=== PATIENT | female | born 1935 | race Caucasian/White ===

== ENCOUNTER 2018-05-16 20:25 | Emergency (ER) | payer MEDICARE ==
--- NOTE | 2018-05-16 20:47 | ED ---
Lower Extremity - HPI Summary HPI Summary: This patient is a 83 year old F BIBA to [facility] accompanied by her friend with a chief complaint of left hip pain after a mechanical fall prior to arrival. Patient states she typically uses a walker at baseline, and while entering her apartment she used the wall as support instead and fell on her left hip. She states that afterward she was able to get up and enter her apartment, but her neighbor had called EMS. Patient denies recent fever, cold, cough, difficult breathing, changes in appetite and bowel or urinary habits. Patient reports gradually worsening leg weakness. Left hip pain is worsened with movement. PMHx of chronic lymphatic leukemia. - History of Current Complaint Stated Complaint: HIP PAIN Time Seen by Provider: 05/16/18 20:40 Hx Obtained From: Patient Mechanism Of Injury: Fall From A Standing Position Onset of Pain: Immediate, Prior to Arrival Onset/Duration: Still Present Timing: Constant Location: Is Discrete @ - left hip Aggravating Factor(s): Movement Able to Bear Weight: Yes - Allergies/Home Medications Allergies/Adverse Reactions: Allergies Allergy/AdvReac Type Severity Reaction Status Date / Time No Known Allergies Allergy Verified 03/30/18 10:29 Home Medications: Home Medications Omeprazole 20 mg PO DAILY 05/16/18 [History Confirmed 05/16/18] PMH/Surg Hx/FS Hx/Imm Hx Endocrine/Hematology History: Reports: Hx Thyroid Disease EENT History: Denies: Hx Deafness - Cancer History Cancer Type, Location and Year: leukemia Hx Chemotherapy: Yes - 3 YEARS AGO, LEUKEMIA Hx Radiation Therapy: Yes - 9 YEARS AGO, LEUKEMIA - Family History Known Family History: Negative: Respiratory Disease, Seizure Disorder - Social History Alcohol Use: None Substance Use Type: Reports: None Smoking Status (MU): Never Smoked Tobacco Review of Systems Negative: Fever Respiratory: Negative Gastrointestinal: Negative Positive: no symptoms reported Positive: Myalgia - left hip Neurological: Negative All Other Systems Reviewed And Are Negative: Yes Physical Exam - Summary Physical Exam Summary: Appearance: Well-appearing, Well-nourished, lying in bed comfortably Skin: Warm, dry, no obvious rash Eyes: sclera anicteric, no conjunctival pallor ENT: mucous membranes moist, pharynx appears normal Neck: Supple, nontender Respiratory: Clear to auscultation, no signs of respiratory distress Cardiovascular: Normal S1, S2. No murmurs. Normal distal pulses in tibial and radial bilaterally. Abdomen: Soft, nontender, normal active bowel sounds present Musculoskeletal: Normal, Strength/ROM Intact, no pain with rotation and flexion of the hip, no pain with longitudinal pressure at the foot Neurological: A&Ox3, awake and alert, mentation is normal, speech is fluent and appropriate Psychiatric: affect is normal, does not appear anxious or depressed Triage Information Reviewed: Yes Vital Signs Reviewed: Yes Diagnostics - Laboratory Result Diagrams: 05/16/18 20:48 05/16/18 20:48 Lab Statement: Any lab studies that have been ordered have been reviewed, and results considered in the medical decision making process. - Radiology L Hip XR Radiology Interpretation Completed By: ED Physician - Negative. - CT Pelvis CT CT Interpretation Completed By: Radiologist - Diffuse demineralization of the bones. Degenerative changes. Mildly depressed fracture of the right superior pubic ramus seen on the sagittal and coronal images cannot be seen on the axial source images. Findings may be secondary to reconstruction artifact. Bowing of the left inferior pubic ramus on the left. No obvious fracture or dislocation is seen. Degenerative changes of the lumbosacral spine. ED Physician has reviewed this report. - EKG 2052 Cardiac Rate: NL - 80 BPM EKG Rhythm: Sinus Rhythm Summary of EKG Findings: normal EKG Re-Evaluation - Re-Evaluation 0145 Re-Evaluation Time: 01:45 Comment: Patient is able to bear weight; however, patient is limitedin ability to ambulate. Patient wont be able to get into home due to darkness and weather. Will medicate for pain and will re-eval in the morning. Lower Extremity Course/Dx - Course Course Of Treatment: 83 year old F BIBA to [facility] accompanied by her friend with a chief complaint of left hip pain after a mechanical fall prior to arrival. Patient states she typically uses a walker at baseline, and while entering her apartment she used the wall as support instead and fell on her left hip. She states that afterward she was able to get up and enter her apartment. Bloodwork is consistent with reported leukemia. Patient is given Motrin, Flexeril, and Tylenol. Left hip XR is negative for fracture. Pelvis CT reveals degenerative changes, but no acute fracture. Patient is able to bear weight; however, patient is limited in ability to ambulate. Patient wont be able to get into home due to darkness and weather. after sleeping through the night patient is able to ambulate well and is discharged home. Discharge - Sign-Out/Discharge Documenting (check all that apply): Patient Departure - discharge - Discharge Plan Condition: Improved Disposition: HOME Patient Education Materials: Hip Contusion (ED) Referrals: Urban Capps MD [Primary Care Provider] - 3 Days (if not better) Additional Instructions: Take tylenol, 2 extra strenth tabs, 4 times daily for pain. You can supplement that with OTC motrin, 400 mg three times daily if needed. Ice over the painful areas can also help with the pain. - Attestation Statements Document Initiated by Scribe: Yes Documenting Scribe: Italia Spence Provider For Whom Scribe is Documenting (Include Credential): Aurelio Leyva MD Scribe Attestation: Italia Ravi , scribed for Aurelio Leyva MD on 05/17/18 at 0649.
[2018-05-16 21:19] LABS: EGFR Non-African American 102.9 (>60)
[2018-05-16 21:21] LABS: Hematocrit 26 % (35-47); Hemoglobin 8.9 g/dl (12.0-16.0); Mean Corpuscular HGB Conc 35 g/dl (31-36); Mean Corpuscular Hemoglobin 37 pg (27-31); Mean Corpuscular Volume 106 fL (80-97); Mean Platelet Volume 8.5 um3 (7.4-10.4); Platelet Count 104 10^3/ul (150-450); Red Cell Distribution Width 20 % (10.5-15); White Blood Count 2.1 10^3/ul (3.5-10.8)
--- OUTSIDE RECORDS SUMMARY | 2018-05-16 21:31 | XMS REPORT ---
:1935 External Reference #:[id number] Author Organization [facility] Address [address] [place] [address] Phone [phone] Care Team Providers Name Role Phone Urban Capps MD Primary Care Physician Unavailable Payers Type Date Identification Numbers Payment Provider Subscriber Medicare Primary Policy Number: [id number] Medicare Veda Marcial PayID: [id number] [address] [place] [address] [employer] [employer] [place] Effective: 1998 Policy Number: Medicare Veda Marcial [id number] Expires: 2018 PayID: [id number] [address] [facility] [address] [employer] [employer] Effective: Policy Number: [facility] Veda Gillyvrose 2007 [id number] Healthcare PayID: [id number] [address] [place] [address] Problems Date Description Provider Status Onset: 03/31/2018 Localized, primary osteoarthritis Geronimo Blank MD Active Onset: 03/31/2018 Closed fracture of phalanx of foot Geronimo Blank MD Active Onset: 03/31/2018 Closed fracture of metatarsal bone Geronimo Blank MD Active Social History Description No Information Available Allergies, Adverse Reactions, Alerts Date Description Reaction Status Severity Comments 03/31/2018 NKDA active Medications Medication Date Status Form Strength Qnty SIG Indications Ordering Provider Simvastatin 00/ Active Tablets 20mg 1 by mouth Unknown 0000 every day Raloxifene HCL 00/00/ Active Tablets 60mg 1 by mouth Unknown 0000 every day Levothyroxine 0000/ Active Tablets 112mcg 1 by mouth Unknown Sodium 0000 every day Calcitonin 00/ Active Solution 200Unit/Ac one spray Unknown ([place]) 0000 t daily in alternate nostrils Omeprazole / Active Capsules 20mg 1 by mouth Unknown [address] every day Imbruvica / Active Capsules 420mg 1 tab po Unknown 0000 daily Vital Signs Date Vital Result Comment 05/12/2018 Height 61 inches 5'1" Weight 129.00 lb Heart Rate 88 /min Respiratory Rate 18 /min BMI (Body Mass Index) 24.4 kg/m2 03/31/2018 Height 61 inches 5'1" Weight 129.00 lb Heart Rate 84 /min Respiratory Rate 16 /min Body Temperature 97.7 F Pain Level 8 BMI (Body Mass Index) 24.4 kg/m2 Results Description No Information Procedures Date CPT Code Description Status Comment 01/19/2013 71383 Rad Exam; Fingers Completed 01/19/2013 64106 Rad Exam; Wrist, Comp, Min 3 Views Completed RT 01/07/2013 56031 Xray Knee 3 Views Completed 01/07/2013 41135 Rad Exam; Knee, Ap&L Completed Encounters Type Date Location Provider CPT E/M Dx Office Visit 03/31/2018 [place] [address] S92.325A 10:00a Of C.M.AJanine S92.335A S92.345A S92.415A M17.12 W19.xxxA S92.355A Office Visit 01/19/2013 10:15a [facility] [place]issette Walker, [address] 715.94 Of CJanineMMartinez Canela 719.44 Office Visit 01/07/2013 10:30a [facility] Fidel Gill M.D. 33457 715.36 C.MJanineAJanine Office Visit 12/07/2012 10:30a [facility] [place] [address] 715.94 CTereso Walker M.D. Office Visit 06/11/2009 [facility] [address] 780.97 [facility] [place] [phone] Plan of Care Future Appointment(s):06/23/2018 10:15 am - Geronimo Blank MD at [facility].05/12/2018 - Geronimo Blank, MDS92.335A Nondisp fx of third metatarsal bone, left foot, initNew Xrays:Foot Left 3+ VWSFollow up:Follow Up: 6 xsnupE95.325A Nondisp fx of second metatarsal bone, left foot, initNew Xrays :Foot Left 3+ VWSS92.345A Nondisp fx of fourth metatarsal bone, left foot, init
[2018-05-16 21:45] LABS: ABS Basophils 0 10^3/ul (0-0.2); ABS Neutrophils 1.5 10^3/ul (1.5-7.7); ABS Neutrophils 1.8 10^3/ul (1.5-7.7); Monocytes % 6 % (0-7)
--- NOTE | 2018-05-17 00:46 | RAD ---
EXAM: CT Pelvis Without Intravenous Contrast, Skeletal EXAM DATE/TIME: 05/16/2018 11:55 PM CLINICAL HISTORY: 83 years old, female; Injury or trauma; Fall; Initial encounter; Abrasion; Left; Groin; Additional info: Fall, left hip pain, neg plain film, R/O hip FX TECHNIQUE: Axial computed tomography images of the pelvis without intravenous contrast. Exam focused on the skeletal structures. All CT scans at this facility use at least one of these dose optimization techniques: automated exposure control; mA and/or kV adjustment per patient size (includes targeted exams where dose is matched to clinical indication); or iterative reconstruction. Coronal and sagittal reformatted images were created and reviewed. COMPARISON: No relevant prior studies available. FINDINGS: Vasculature: Atherosclerosis. Bones/joints: Diffuse demineralization of the bones. Degenerative changes. Mildly depressed fracture of the right superior pubic ramus seen on the sagittal and coronal images cannot be seen on the axial source images. Findings may be secondary to reconstruction artifact. Bowing of the left inferior pubic ramus on the left. No obvious fracture or dislocation is seen. Degenerative changes of the lumbosacral spine. Soft tissues: Unremarkable. IMPRESSION: Diffuse demineralization of the bones. Degenerative changes. Mildly depressed fracture of the right superior pubic ramus seen on the sagittal and coronal images cannot be seen on the axial source images. Findings may be secondary to reconstruction artifact. Bowing of the left inferior pubic ramus on the left. No obvious fracture or dislocation is seen. Degenerative changes of the lumbosacral spine. To contact [facility] with a general question: [facility] - [phone] For direct physician to physician contact: Physician Hotline - [phone] [facility] ([facility] ID #[id number])
[2018-05-17] MEDS ORDERED: Acetaminophen TAB* 325 MG PO ONE (01:52)
[2018-05-17] MEDS ORDERED: Ibuprofen TAB* 400 MG PO ONE (01:52)
[2018-05-17] MEDS ORDERED: Cyclobenzaprine TAB* 10 MG ONE (02:56)
[2018-05-17] MEDS ORDERED: Cyclobenzaprine TAB* 10 MG PO ONE (02:57)
[2018-05-17 03:53] LABS: Urine Appearance Clear; Urine Blood Negative (Negative); Urine Color Yellow; Urine Ketones Trace (Negative); Urine Protein Negative (Negative); Urine Red Blood Cell Absent (Absent); Urine Specific Gravity 1.013 (1.010-1.030); Urine Urobilinogen Negative (Negative); Urine White Blood Cell Trace(0-5/hpf) (Absent)
[2018-05-17 07:13] VITALS: BP 120/74
--- NOTE | 2018-05-17 07:30 | RAD ---
INDICATION: Left hip injury. COMPARISON: There are no relevant prior studies available for comparison. TECHNIQUE: An AP view of the pelvis and frontal and lateral views of the left hip were obtained. FINDINGS: The bones appear osteopenic. The hips appear dysplastic. No fracture is seen. There is mild bilateral osteoarthritic change in the hips. IMPRESSION: LIMITED STUDY, NO EVIDENCE FOR FRACTURE, IF THE PATIENT'S SYMPTOMS PERSIST RECOMMEND FOLLOW-UP IMAGING. R0
== END 2018-05-17 07:00 | disposition home or self-care (01) ==
LOC: ED 20:25
DX: S70.02XA Contusion of left hip, initial encounter (principal); W19.XXXA Unspecified fall, initial encounter; Y93.9 Activity, unspecified; Y92.038 Other place in apartment as the place of occurrence of the external cause; R53.1 Weakness
CPT/HCPCS: 36415; 72192; 80053; 81003; 81015; 85025; 87086; 93005; 99283; A9270-GY

== ENCOUNTER 2018-05-21 15:55 | Inpatient (IN) | payer MEDICARE ==
[2018-05-21 16:59] LABS: Hematocrit 21 % (35-47); Hemoglobin 7.5 g/dl (12.0-16.0); Mean Corpuscular HGB Conc 36 g/dl (31-36); Mean Corpuscular Hemoglobin 38 pg (27-31); Mean Corpuscular Volume 106 fL (80-97); Mean Platelet Volume 7.7 um3 (7.4-10.4); Platelet Count 56 10^3/ul (150-450); Red Cell Distribution Width 20 % (10.5-15); White Blood Count 2.7 10^3/ul (3.5-10.8)
[2018-05-21 17:13] LABS: EGFR Non-African American 129.1 (>60)
[2018-05-21 17:39] LABS: ABS Basophils 0 10^3/ul (0-0.2); ABS Eosinophils 0.1 10^3/ul (0-0.6); ABS Lymphocytes 0.4 10^3/ul (1.0-4.8); ABS Monocytes 0.1 10^3/ul (0-0.8); ABS Neutrophils 2.2 10^3/ul (1.5-7.7); ABS Nucleated RBC 0 10^3/ul; Eosinophil % 1.9 % (0-6); Lymphocyte % 15.1 % (25-47); Nucleated Red Blood Cells % 0.4
--- NOTE | 2018-05-21 18:12 | ED ---
Complex/Multi-Sys Presentation - HPI Summary HPI Summary: This patient is a 83 year old F brought in by ambulance to ED with a chief complaint of weakness. The CC is described as worsened gradually over the past couple of years but especially since recent fall on 05/16/2018 where she injured her L leg. She needs her walker in order to move around. The patient rates the pain 0/10 in severity. Symptoms aggravated by nothing. Symptoms alleviated by nothing. Patient denies dizziness/light-headedness, CP, SOB, and melena. She is not taking any blood thinners but she is on chemo pills for chronic lymphocytic leukemia. - History Of Current Complaint Chief Complaint: EDWeakness Time Seen by Provider: 05/21/18 17:59 Onset/Duration: Gradual Onset, Lasting Weeks - worsened gradually over the past couple of years but especially since recent fall on 05/16/2018 where she injured her L leg, Still Present Timing: Constant Severity Currently: None Aggravating Factor(s): nothing Alleviating Factor(s): nothing Associated Signs And Symptoms: Positive: Weakness. Negative: Dizziness, SOB, Chest Pain, Melena - Allergies/Home Medications Allergies/Adverse Reactions: Allergies Allergy/AdvReac Type Severity Reaction Status Date / Time No Known Allergies Allergy Verified 03/30/18 10:29 PMH/Surg Hx/FS Hx/Imm Hx Endocrine/Hematology History: Reports: Hx Thyroid Disease Sensory History: Denies: Hx Deafness Neurological History: Reports: Other Neuro Impairments/Disorders - polio - Cancer History Cancer Type, Location and Year: leukemia Hx Chemotherapy: Yes - 3 YEARS AGO, LEUKEMIA Hx Radiation Therapy: Yes - 9 YEARS AGO, LEUKEMIA Infectious Disease History: Unable to Obtain/Confirm Infectious Disease History: Denies: Traveled Outside the [place] in Last 30 Days - Family History Known Family History: Negative: Respiratory Disease, Seizure Disorder - Social History Alcohol Use: None Substance Use Type: Reports: None Smoking Status (MU): Never Smoked Tobacco Review of Systems Negative: Fever, Chills Negative: Erythema Negative: Sore Throat Negative: Chest Pain Negative: Shortness Of Breath, Cough Positive: Other - denies melena. Negative: Abdominal Pain, Vomiting, Nausea Negative: dysuria, hematuria Negative: Myalgia, Edema Negative: Rash Neurological: Other - denies dizziness/light-headedness Positive: Weakness All Other Systems Reviewed And Are Negative: Yes Physical Exam - Summary Physical Exam Summary: Constitutional: Well-developed, Well-nourished, Alert. (-) Distressed Skin: Warm, Dry HENT: Normocephalic; Atraumatic Eyes: Conjunctiva normal Neck: Musculoskeletal ROM normal neck. (-) JVD, (-) Stridor, (-) Tracheal deviation Cardio: Rhythm regular, rate normal, Heart sounds normal; Intact distal pulses; The pedal pulses are 2+ and symmetric. Radial pulses are 2+ and symmetric. (-) Murmur Pulmonary/Chest wall: Effort normal. (-) Respiratory distress, (-) Wheezes, (-) Rales Abd: Soft, (-) epigastric tenderness, (-) Distension, (-) Guarding, (-) Rebound Musculoskeletal: (-) Edema Lymph: (-) Cervical adenopathy Neuro: Alert, Oriented x3 Psych: Mood and affect Normal Rectal exam chaperoned by nurse aide Lela: No teresa blood, empty vault. Triage Information Reviewed: Yes Vital Signs On Initial Exam: Initial Vitals Temp Pulse Resp BP Pulse Ox 97.8 F 70 16 121/54 98 05/21/18 16:26 05/21/18 16:26 05/21/18 16:26 05/21/18 16:26 05/21/18 16:26 Vital Signs Reviewed: Yes Diagnostics - Vital Signs Vital Signs Temp Pulse Resp BP Pulse Ox 05/21/18 16:26 97.8 F 70 16 121/54 98 - Laboratory Lab Results: Lab Results 05/21/18 05/21/18 05/21/18 Range/Units 16:48 16:48 16:48 WBC 2.7 L (3.5-10.8) 10^3/ul RBC 2.00 L (4.00-5.40) 10^6/ul Hgb 7.5 L (12.0-16.0) g/dl Hct 21 L (35-47) % MCV 106 H (80-97) fL MCH 38 H (27-31) pg MCHC 36 (31-36) g/dl RDW 20 H (10.5-15) % Plt Count 56 L (150-450) 10^3/ul MPV 7.7 (7.4-10.4) um3 Neut % (Auto) 80.1 (38-83) % Lymph % (Auto) 15.1 L (25-47) % Gillespie % (Auto) 2.2 (0-7) % Eos % (Auto) 1.9 (0-6) % Baso % (Auto) 0.7 (0-2) % Absolute Neuts (auto) 2.2 (1.5-7.7) 10^3/ul Absolute Lymphs (auto) 0.4 L (1.0-4.8) 10^3/ul Absolute Monos (auto) 0.1 (0-0.8) 10^3/ul Absolute Eos (auto) 0.1 (0-0.6) 10^3/ul Absolute Basos (auto) 0 (0-0.2) 10^3/ul Absolute Nucleated RBC 0 10^3/ul Nucleated RBC % 0.4 Sodium 127 L (135-145) mmol/L Potassium 4.3 (3.5-5.0) mmol/L Chloride 98 L (101-111) mmol/L Carbon Dioxide 21 L (22-32) mmol/L Anion Gap 8 (2-11) mmol/L BUN 15 (6-24) mg/dL Creatinine 0.46 L (0.51-0.95) mg/dL Est GFR ( Amer) 156.2 (>60) Est GFR (Non-Af Amer) 129.1 (>60) BUN/Creatinine Ratio 32.6 H (8-20) Glucose 90 (70-100) mg/dL Lactic Acid 0.7 (0.5-2.0) mmol/L Calcium 8.5 L (8.6-10.3) mg/dL Magnesium 1.9 (1.9-2.7) mg/dL Total Bilirubin 1.00 (0.2-1.0) mg/dL AST 24 (13-39) U/L ALT 18 (7-52) U/L Alkaline Phosphatase 23 L (34-104) U/L Troponin I 0.00 (<0.04) ng/mL Total Protein 5.4 L (6.4-8.9) g/dL Albumin 3.2 (3.2-5.2) g/dL Globulin 2.2 (2-4) g/dL Albumin/Globulin Ratio 1.5 (1-3) TSH 9.57 H (0.34-5.60) mcIU/mL Result Diagrams: 05/24/18 07:18 05/24/18 07:18 Lab Statement: Any lab studies that have been ordered have been reviewed, and results considered in the medical decision making process. - EKG 1811 Cardiac Rate: NL - 65 BPM EKG Rhythm: Sinus Rhythm Summary of EKG Findings: No STEMI Complex Multi-Symp Course/Dx Assessment/Plan: This patient is a 83 year old F brought in by ambulance to ED with a chief complaint of weakness. EKG done at 1811 reveals NSR at 65 BPM and no STEMI. Consulted Dr. Salter about the patient and he accepts for admission. Patient understands and agrees. - Diagnoses Provider Diagnoses: Symptomatic anemia - Physician Notifications Discussed Care Of Patient With: Montez Salter Time Discussed With Above Provider: 18:36 Instructed by Provider To: Admit As Inpatient Discharge - Sign-Out/Discharge Documenting (check all that apply): Patient Departure - admit - Discharge Plan Condition: Stable Disposition: ADMITTED TO [facility] - Billing Disposition and Condition Condition: STABLE Disposition: Admitted to [facility] - Attestation Statements Document Initiated by Scribe: Yes Documenting Scribe: Flakito Salmon Provider For Whom Scribe is Documenting (Include Credential): Jc France MD Scribe Attestation: Flakito Ravi, scribed for Jc France MD on 05/25/18 at 1132. Scribe Documentation Reviewed: Yes Provider Attestation: The documentation as recorded by the scribeFlakito accurately reflects the service I personally performed and the decisions made by me, Jc France MD
[2018-05-21] MEDS ORDERED: oxyCODONE/Acetamin 5/325 MG* TAB PO PRN (20:14)
[2018-05-21] MEDS ORDERED: Acetaminophen TAB* 325 MG PO PRN (20:14)
[2018-05-21] MEDS ORDERED: Enoxaparin(*) 30 MG/0.3 ML SYR SUBCUT SCH (21:00)
[2018-05-21] MEDS: NS 0.9% 1000 ML* 1,000 ML IV SCH (23:26)
[2018-05-21] MEDS: Senna TAB PO SCH (23:29)
[2018-05-22 02:56] LABS: Urine Appearance Clear; Urine Blood 1+ (Negative); Urine Color Yellow; Urine Ketones Negative (Negative); Urine Protein Negative (Negative); Urine Red Blood Cell Trace(0-2/hpf) (Absent); Urine Specific Gravity 1.008 (1.010-1.030); Urine Urobilinogen Negative (Negative); Urine White Blood Cell Trace(0-5/hpf) (Absent)
--- NOTE | 2018-05-22 05:05 | HP ---
HISTORY AND PHYSICAL: DATE OF ADMISSION: 05/21/18 CHIEF COMPLAINT: Feeling week. IDENTIFICATION: An 83-year-old female with 17q positive CLL currently on therapy with Imbruvica. HISTORY OF PRESENT ILLNESS: Ms. Marcial started Imbruvica in November. Therapy had been held for pancytopenia. At the end of April, she had a white count of 800 on 05/12/18 and 1.3 on 05/15/18. She came into the emergency room on after a fall and concerned about a broken hip. At that time her white count was 2.1 and Imbruvica was restarted. Platelet count was at the baseline around 100 and on 05/12/18 was 109 and 104 on 05/16/18. Her hemoglobin had a baseline of 11 to 12 until October of this year when it was 8.6, and has gone as low as 7.6 in the past, was 9 on 05/12/18. She started retaking the Imbruvica. After starting taking the Imbruvica on the she noticed increasing fatigue. She has been weaker and weaker to the point that she has had more difficulty walking around. This morning she was much much worse. She was in a chair and was not able to get up and decided to come to the emergency room. CBC on presentation included a hemoglobin of 7.5 as noted, down from 8.9 four days ago ; white count 2.7; platelets of 56,000. She has a sodium of 127, chloride 98, carbon-dioxide 21, and creatinine 0.46. She has no fevers or chills. She says she is eating well and has not had diarrhea. She is not in pain. She is alert and oriented x3 in the emergency room, but quite immobile. PAST MEDICAL HISTORY: 1. 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 She was treated with radiation at presentation. Remained disease free until 2008 when she received chemotherapy with 2 medicines from January through May. She tolerated that reasonably well and did not need therapy again until 2018. At that time she presented with progressive pancytopenia. Repeat bone marrow biopsy showed infiltration of CLL, 17q positive. She was started on Imbruvica. Generally tolerated Imbruvica well. 2. Hypothyroidism. 3. GERD. 4. Osteoporosis. 5. High cholesterol. 6. 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 PAST SURGICAL HISTORY: She had fibrocystic breast had biopsies years ago. MEDICATIONS: 1. Calcitonin nasal spray 200 units daily. 2. Imbruvica 420 mg daily. 3. Synthroid 112 mcg daily. 4. Omeprazole 20 mg daily. 5. Compazine 10 mg 4 times a day p.r.n. 6. Raloxifene 20 mg daily. 7. Simvastatin 20 mg daily. ALLERGIES: None. FAMILY HISTORY: Noncontributory. SOCIAL HISTORY: She lives alone in an apartment. She has a yazidi family and friends as well as neighbors that she is close to. She has no living family. Close to the step [place]. She reports she has a proxy, but cannot recall who it is. REVIEW OF SYSTEMS: General: Profound weakness, difficulty with any movement. No fevers, chills, or night sweats. HEENT: Dry mouth. No active dental disease. Lungs: Negative. Cardiac: Negative. GI: Negative. : She says she urinates fine. Musculoskeletal: She has a brace from the [employer] and she is very weak. She fell last week and may have hurt her hip, but evaluation is negative in the emergency room. She had a fall on 04/27/18 and a broken metatarsal. But she said she can walk without pain on that foot. Neurologic: Negative. Skin: Negative. PHYSICAL EXAMINATION VITAL SIGNS: Temperature 97.8, BP 121/54, pulse 70, respirations 16. HEENT: Mucosa dry, she has no active dental disease. No oral lesions. Conjunctivae pale. LUNGS: Clear to auscultation bilaterally. HEART: Regular, rate, and rhythm. S1 and S2. Slight systolic murmur, no gallops. ABDOMEN: Nontender. Nondistended. I cannot feel a spleen. Good bowel sounds. EXTREMITIES: She has the brace on the right leg. Trace edema bilaterally. Difficult to examine her in the chair. NEUROLOGIC: She is grossly nonfocal. Could turn in the wheelchair and has Strength 5/5 in the arms, but could not move the legs in the position she was in. LABORATORY DATA: As noted in the HPI. IMAGING: Pelvis CT from 05/16/18 did not show a fracture. ASSESSMENT AND PLAN: An 83-year-old female with chronic lymphocytic leukemia, 17q positive, on Imbruvica, who presents with progressive weakness, found to have a hemoglobin of 7.5 one week after restarting therapy. Suspect that she has pancytopenia secondary to her chemotherapy. Cytopenias could be driven primarily by progressive chronic lymphocytic leukemia during the time off therapy. Differential could also include blood loss; the normal BUN and creatinine are reassuring. She is hyponatremic which is suspect is from dehydration, there could be syndrome of inappropriate secretion of antidiuretic hormone. 1. We will admit her. Plan physical therapy evaluation of ADLs. Transfuse 2 units of packed red blood cells. 2. Hyponatremia. Normal saline at 100 cc/hour and follow. We will check UA including urine osmolality and check a chest x-ray for occult pulmonary disease. 3. Follow white count, follow platelets. No indication for platelet transfusion at this time. 4. We will continue her levothyroxine and simvastatin. We are going to hold her other medications until we get clarification. 5. We will give her Lovenox for DVT prophylaxis as long as her platelet count remains above 50,000. 6. She is a full code at this time, will need to clarify health care proxy will have office records in the morning. 7. Hold her Imbruvica. [id number]/CPS #: [id number] SALVATORE
[2018-05-22] MEDS: Levothyroxine TAB* 112 MCG TAB PO SCH (05:30)
[2018-05-22] MEDS: Omeprazole CAP* 20 MG PO SCH (05:30)
[2018-05-22 07:18] LABS: ABS Basophils 0 10^3/ul (0-0.2); ABS Eosinophils 0.1 10^3/ul (0-0.6); ABS Lymphocytes 0.3 10^3/ul (1.0-4.8); ABS Monocytes 0 10^3/ul (0-0.8); ABS Nucleated RBC 0 10^3/ul; Eosinophil % 2.2 % (0-6); Hematocrit 27 % (35-47); Hemoglobin 9.8 g/dl (12.0-16.0); Lymphocyte % 13.2 % (25-47); Mean Corpuscular HGB Conc 36 g/dl (31-36); Mean Corpuscular Hemoglobin 36 pg (27-31); Mean Corpuscular Volume 100 fL (80-97); Nucleated Red Blood Cells % 0; Platelet Count 47 10^3/ul (150-450); Red Blood Count 2.74 10^6/ul (4.00-5.40); Red Cell Distribution Width 20 % (10.5-15); White Blood Count 2.5 10^3/ul (3.5-10.8)
[2018-05-22 07:24] LABS: EGFR Non-African American 139.6 (>60)
--- NOTE | 2018-05-22 07:56 | RAD ---
Indication: Hyponatremia. 2 views of the chest are reviewed. Comparison is made with previous exam dated July 10, 2009. No mediastinal shift is noted. Heart is of normal size and configuration. No pleural fluid, pneumonia or pneumothorax is noted. Chronic pleural parenchymal changes are noted in the left lung base. IMPRESSION: Chronic pleural parenchymal changes in the left lung base without definite pneumonia.
--- NOTE | 2018-05-22 09:43 | PN ---
Progress Note - Progress Note Date of Service: 05/22/18 SOAP: Subjective: [Admitted last night with severe weakness to the point that she was unable to reposition herself in bed. She was pancytopenic at admission with Hgb 7.5. Transfused 2U PRBCs last night. She reports feeling slightly better, but still so weak that she is unable to lift her legs.] Objective: [ Laboratory Results - last 24 hr 05/21/18 05/21/18 05/21/18 16:48 16:48 16:48 WBC 2.7 L RBC 2.00 L Hgb 7.5 L Hct 21 L MCV 106 H MCH 38 H MCHC 36 RDW 20 H Plt Count 56 L MPV 7.7 Neut % (Auto) 80.1 Lymph % (Auto) 15.1 L Patrick % (Auto) 2.2 Eos % (Auto) 1.9 Baso % (Auto) 0.7 Absolute Neuts (auto) 2.2 Absolute Lymphs (auto) 0.4 L Absolute Monos (auto) 0.1 Absolute Eos (auto) 0.1 Absolute Basos (auto) 0 Absolute Nucleated RBC 0 Nucleated RBC % 0.4 Sodium 127 L Potassium 4.3 Chloride 98 L Carbon Dioxide 21 L Anion Gap 8 BUN 15 Creatinine 0.46 L Est GFR ( Amer) 156.2 Est GFR (Non-Af Amer) 129.1 BUN/Creatinine Ratio 32.6 H Glucose 90 Lactic Acid 0.7 Calcium 8.5 L Magnesium 1.9 Iron 67 TIBC 186 L % Saturation 36 Unsat Iron Binding < 171 Transferrin 133 L Ferritin 997.4 H Total Bilirubin 1.00 AST 24 ALT 18 Alkaline Phosphatase 23 L Troponin I 0.00 Total Protein 5.4 L Albumin 3.2 Globulin 2.2 Albumin/Globulin Ratio 1.5 TSH 9.57 H Urine Color Urine Appearance Urine pH Ur Specific Radiant Urine Protein Urine Ketones Urine Blood Urine Nitrate Urine Bilirubin Urine Urobilinogen Ur Leukocyte Esterase Urine WBC (Auto) Urine RBC (Auto) Ur Squamous Epith Cells Ur Transition Epith Cell Urine Bacteria Urine Glucose Blood Type Antibody Screen Crossmatch 05/21/18 05/22/18 05/22/18 16:48 02:44 06:47 WBC 2.5 L RBC 2.74 L Hgb 9.8 L Hct 27 L MCV 100 H MCH 36 H MCHC 36 RDW 20 H Plt Count 47 L D MPV 8.0 Neut % (Auto) 82.1 Lymph % (Auto) 13.2 L Patrick % (Auto) 1.6 Eos % (Auto) 2.2 Baso % (Auto) 0.9 Absolute Neuts (auto) 2.0 Absolute Lymphs (auto) 0.3 L Absolute Monos (auto) 0 Absolute Eos (auto) 0.1 Absolute Basos (auto) 0 Absolute Nucleated RBC 0 Nucleated RBC % 0 Sodium Potassium Chloride Carbon Dioxide Anion Gap BUN Creatinine Est GFR ( Amer) Est GFR (Non-Af Amer) BUN/Creatinine Ratio Glucose Lactic Acid Calcium Magnesium Iron TIBC % Saturation Unsat Iron Binding Transferrin Ferritin Total Bilirubin AST ALT Alkaline Phosphatase Troponin I Total Protein Albumin Globulin Albumin/Globulin Ratio TSH Urine Color Yellow Urine Appearance Clear Urine pH 6.0 Ur Specific Radiant 1.008 L Urine Protein Negative Urine Ketones Negative Urine Blood 1+ A Urine Nitrate Negative Urine Bilirubin Negative Urine Urobilinogen Negative Ur Leukocyte Esterase Trace A Urine WBC (Auto) Trace(0-5/hpf) Urine RBC (Auto) Trace(0-2/hpf) Ur Squamous Epith Cells Present A Ur Transition Epith Cell Present A Urine Bacteria Absent Urine Glucose Negative Blood Type B Positive Antibody Screen Negative Crossmatch See Detail 05/22/18 06:47 WBC RBC Hgb Hct MCV MCH MCHC RDW Plt Count MPV Neut % (Auto) Lymph % (Auto) Patrick % (Auto) Eos % (Auto) Baso % (Auto) Absolute Neuts (auto) Absolute Lymphs (auto) Absolute Monos (auto) Absolute Eos (auto) Absolute Basos (auto) Absolute Nucleated RBC Nucleated RBC % Sodium 129 L Potassium 4.2 Chloride 104 Carbon Dioxide 20 L Anion Gap 5 BUN 12 Creatinine 0.43 L Est GFR ( Amer) 168.9 Est GFR (Non-Af Amer) 139.6 BUN/Creatinine Ratio 27.9 H Glucose 88 Lactic Acid Calcium 8.0 L Magnesium Iron TIBC % Saturation Unsat Iron Binding Transferrin Ferritin Total Bilirubin 1.20 H AST 22 ALT 18 Alkaline Phosphatase 24 L Troponin I Total Protein 5.0 L Albumin 3.0 L Globulin 2.0 Albumin/Globulin Ratio 1.5 TSH Urine Color Urine Appearance Urine pH Ur Specific Radiant Urine Protein Urine Ketones Urine Blood Urine Nitrate Urine Bilirubin Urine Urobilinogen Ur Leukocyte Esterase Urine WBC (Auto) Urine RBC (Auto) Ur Squamous Epith Cells Ur Transition Epith Cell Urine Bacteria Urine Glucose Blood Type Antibody Screen Crossmatch Acetaminophen (Tylenol Tab*) 650 mg PO Q4H PRN PRN Reason: FEVER/PAIN Atorvastatin Calcium (Lipitor*) 10 mg PO DAILY [facility] Enoxaparin Sodium (Lovenox(*)) 30 mg SUBCUT Q24H [facility] Last Admin: 05/21/18 23:29 Dose: 30 mg Sodium Chloride (Ns 0.9% 1000 Ml*) 1,000 mls @ 100 mls/hr IV PER RATE [facility] Last Admin: 05/21/18 23:26 Dose: 100 mls/hr Levothyroxine Sodium (Synthroid Tab*) 112 mcg PO 0600 [facility] Last Admin: 05/22/18 05:30 Dose: 112 mcg Omeprazole (Prilosec Cap*) 20 mg PO 0600 [facility] Last Admin: 05/22/18 05:30 Dose: 20 mg Oxycodone/Acetaminophen (Percocet 5/325 Tab*) 1 tab PO Q4H PRN PRN Reason: Pain Senna (Senokot Tab*) 1 tab PO BID [facility] Last Admin: 05/21/18 23:29 Dose: 1 tab Vital Signs: Temp Pulse Resp BP Pulse Ox 97.4 F 66 16 121/61 96 05/22/18 07:26 05/22/18 07:26 05/22/18 07:26 05/22/18 07:26 05/22/18 07:26 Exam: Gen: very pleasant 79 yo female in NAD HEENT: dry MM CV: RRR, no m/r/g Resp: CTA, no w/c/r Abd: soft, nonTTP Ext: trace LE edema Neuro: flaccid paralysis RLE (chronic) and 2/5 strength LLE, UE ~4/5 strength bilaterally] Assessment: [Very pleasant 83 yo female with 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 Plan: [1. Weakness - likely multifactorial with some chronic component, but now so severe that she was unable to even reposition in bed - request evaluation by PT/OT 2. Pancytopenia - transfused 2U PRBCs, cont to monitor 3. CLL - hold Imbruvica due to cytopenias and worsening weakness 4. H/o polio with RLE weakness Dispo: request PT/OT eval, patient would benefit from DE[facility]Y and may require terminal gauger residential placement ]
[2018-05-22] MEDS: Atorvastatin* 10 MG TAB PO SCH (10:13)
[2018-05-22] MEDS: Senna TAB PO SCH ×2 (10:13→21:39)
[2018-05-22] MEDS: NS 0.9% 1000 ML* 1,000 ML IV SCH ×2 (11:30→21:39)
[2018-05-23] MEDS: Omeprazole CAP* 20 MG PO SCH (05:45)
[2018-05-23] MEDS: Levothyroxine TAB* 112 MCG TAB PO SCH (05:45)
--- NOTE | 2018-05-23 06:40 | PN ---
Progress Note - Progress Note Date of Service: 05/23/18 SOAP: Subjective: does not feel any improvement in weakness after transfusion. reports she has been gradually worsening over several months, however over the last couple of months has not been able to go grocery shopping or do basic self care at times. Objective: Vital Signs Temp Pulse Resp BP Pulse Ox 98.4 F 63 18 121/48 93 05/23/18 03:22 05/23/18 03:22 05/23/18 03:22 05/23/18 03:22 05/23/18 03:22 perr eomi op dry poor dentition CTA bl s1 s2 nl soft nt +bs Ext: trace LE edema, chronic stasis changes on left LE with erythema but no warmth Neuro: flaccid paralysis RLE (chronic) and 2/5 strength LLE, UE ~4/5 strength bilaterally Laboratory Results - last 24 hr 05/22/18 05/22/18 06:47 06:47 WBC 2.5 L RBC 2.74 L Hgb 9.8 L Hct 27 L MCV 100 H MCH 36 H MCHC 36 RDW 20 H Plt Count 47 L D MPV 8.0 Neut % (Auto) 82.1 Lymph % (Auto) 13.2 L Banks % (Auto) 1.6 Eos % (Auto) 2.2 Baso % (Auto) 0.9 Absolute Neuts (auto) 2.0 Absolute Lymphs (auto) 0.3 L Absolute Monos (auto) 0 Absolute Eos (auto) 0.1 Absolute Basos (auto) 0 Absolute Nucleated RBC 0 Nucleated RBC % 0 Sodium 129 L Potassium 4.2 Chloride 104 Carbon Dioxide 20 L Anion Gap 5 BUN 12 Creatinine 0.43 L Est GFR ( Amer) 168.9 Est GFR (Non-Af Amer) 139.6 BUN/Creatinine Ratio 27.9 H Glucose 88 Calcium 8.0 L Total Bilirubin 1.20 H AST 22 ALT 18 Alkaline Phosphatase 24 L Total Protein 5.0 L Albumin 3.0 L Globulin 2.0 Albumin/Globulin Ratio 1.5 Assessment: 83 yo female with 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 Plan: 1. Weakness - likely multifactorial with some chronic component, but now so severe that she was unable to even reposition in bed. Suspect exacerbation by ibrutinib for CLL - cont PT/OT - will need STR vs. potentially permanent placement 2. Pancytopenia, related to CLL - transfused 2U PRBCs, cont to monitor 3. CLL - hold Imbruvica due to cytopenias and worsening weakness 4. hyponatremia: acute on chronic. suspect hypovolemic hyponatremia right now. continue IVFs 5. hypothyroidism: increase synthroid, recheck in 6-8 weeks 6. low protein: suspect protein calorie malnutrition from poor access to nutrition. will check prealbumin today 7. no DVT prophylaxis with this degree of thrombocytopenia full code ]
[2018-05-23] MEDS: NS 0.9% 1000 ML* 1,000 ML IV SCH ×2 (07:58→20:56)
[2018-05-23] MEDS: Senna TAB PO SCH ×2 (07:58→19:58)
[2018-05-23] MEDS: Atorvastatin* 10 MG TAB PO SCH (07:58)
[2018-05-24] MEDS: Omeprazole CAP* 20 MG PO SCH (05:47)
[2018-05-24] MEDS: Levothyroxine TAB* 137 MCG TAB PO SCH (05:51)
[2018-05-24] MEDS: NS 0.9% 1000 ML* 1,000 ML IV SCH (05:52)
[2018-05-24 07:49] LABS: ABS Basophils 0 10^3/ul (0-0.2); ABS Eosinophils 0.1 10^3/ul (0-0.6); ABS Lymphocytes 0.5 10^3/ul (1.0-4.8); ABS Monocytes 0 10^3/ul (0-0.8); ABS Neutrophils 2.5 10^3/ul (1.5-7.7); ABS Nucleated RBC 0 10^3/ul; Hematocrit 28 % (35-47); Hemoglobin 9.6 g/dl (12.0-16.0); Lymphocyte % 15.1 % (25-47); Mean Corpuscular HGB Conc 35 g/dl (31-36); Mean Corpuscular Hemoglobin 36 pg (27-31); Mean Corpuscular Volume 102 fL (80-97); Mean Platelet Volume 7.8 fL (7.4-10.4); Nucleated Red Blood Cells % 0.1; Platelet Count 42 10^3/ul (150-450); Red Blood Count 2.71 10^6/ul (4.00-5.40); Red Cell Distribution Width 21 % (10.5-15)
[2018-05-24] MEDS: Senna TAB PO SCH ×2 (09:45→21:09)
[2018-05-24] MEDS: Atorvastatin* 10 MG TAB PO SCH (09:45)
[2018-05-24 11:46] LABS: Uric Acid 3.1 mg/dL (2.3-6.6)
--- NOTE | 2018-05-24 13:33 | PN ---
Subjective Date of Service: 05/24/18 Interval History: Pt in good spirits Na 127 from 129 Hgb stable 9.6 from 9.8 Hoping to go to [facility]. Denies chest pain, abdominal pain, shortness of breath, F/C/N/V, cough. Frequently urinating. No dysuria. Objective Active Medications: Acetaminophen (Tylenol Tab*) 650 mg PO Q4H PRN PRN Reason: FEVER/PAIN Last Admin: 05/22/18 21:39 Dose: 325 mg Atorvastatin Calcium (Lipitor*) 10 mg PO DAILY [facility] Last Admin: 05/24/18 09:45 Dose: 10 mg Levothyroxine Sodium (Synthroid Tab*) 137 mcg PO DAILY@0600 [facility] Last Admin: 05/24/18 05:51 Dose: 137 mcg Omeprazole (Prilosec Cap*) 20 mg PO 0600 [facility] Last Admin: 05/24/18 05:47 Dose: 20 mg Oxycodone/Acetaminophen (Percocet 5/325 Tab*) 1 tab PO Q4H PRN PRN Reason: Pain Senna (Senokot Tab*) 1 tab PO BID [facility] Last Admin: 05/24/18 09:45 Dose: 1 tab Vital Signs - 8 hr 05/24/18 05/24/18 05/24/18 08:00 08:07 12:08 Temperature 97.9 F 97.6 F Pulse Rate 67 66 Respiratory 18 18 16 Rate Blood Pressure 131/64 126/61 (mmHg) O2 Sat by Pulse 93 96 Oximetry Oxygen Devices in Use Now: None Appearance: NAD Eyes: No Scleral Icterus, PERRLA Ears/Nose/Mouth/Throat: NL Teeth, Lips, Gums, Mucous Membranes Moist Neck: NL Appearance and Movements; NL JVP, Trachea Midline Respiratory: Symmetrical Chest Expansion and Respiratory Effort, Clear to Auscultation Cardiovascular: NL Sounds; No Murmurs; No JVD, RRR Abdominal: NL Sounds; No Tenderness; No Distention, No Hepatosplenomegaly Extremities: - - 2+ edema, b/l LE Skin: - - faint erythema to left calf (but less than yesterday per report), slight warmth. Neurological: Alert and Oriented x 3, - - 3/5 LLE, flacid RLE. boiler tester 4+L/5-R. bicep pain limited on R but at least 4, L 4+. Nutrition: Taking PO's Result Diagrams: 05/24/18 07:18 05/24/18 07:18 Additional Lab and Data: Laboratory Results - last 24 hr 05/24/18 05/24/18 05/24/18 07:18 07:18 07:18 WBC 3.0 L RBC 2.71 L Hgb 9.6 L Hct 28 L MCV 102 H MCH 36 H MCHC 35 RDW 21 H Plt Count 42 L MPV 7.8 Neut % (Auto) 81.2 Lymph % (Auto) 15.1 L [place] % (Auto) 1.3 Eos % (Auto) 2.0 Baso % (Auto) 0.4 Absolute Neuts (auto) 2.5 Absolute Lymphs (auto) 0.5 L Absolute Monos (auto) 0 Absolute Eos (auto) 0.1 Absolute Basos (auto) 0 Absolute Nucleated RBC 0 Nucleated RBC % 0.1 Sodium 127 L Potassium 3.7 Chloride 103 Carbon Dioxide 20 L Anion Gap 4 BUN 10 Creatinine 0.37 L Est GFR ( Amer) 200.8 Est GFR (Non-Af Amer) 166.0 BUN/Creatinine Ratio 27.0 H Glucose 90 Uric Acid 3.1 Calcium 7.7 L B-Natriuretic Peptide 101 H Urine Osmolality Ur Random Creatinine Ur Random Sodium 05/24/18 05/24/18 12:00 12:00 WBC RBC Hgb Hct MCV MCH MCHC RDW Plt Count MPV Neut % (Auto) Lymph % (Auto) [place] % (Auto) Eos % (Auto) Baso % (Auto) Absolute Neuts (auto) Absolute Lymphs (auto) Absolute Monos (auto) Absolute Eos (auto) Absolute Basos (auto) Absolute Nucleated RBC Nucleated RBC % Sodium Potassium Chloride Carbon Dioxide Anion Gap BUN Creatinine Est GFR ( Amer) Est GFR (Non-Af Amer) BUN/Creatinine Ratio Glucose Uric Acid Calcium B-Natriuretic Peptide Urine Osmolality 426 Ur Random Creatinine 34.91 Ur Random Sodium 120 Microbiology and Other Data: Microbiology 05/22/18 02:44 Urine Urine Culture - Final 05/21/18 18:10 Stool Stool Occult Blood (LION) - Final Assess/Plan/Problems-Billing Assessment: 83 yo female H CLL(2002, recurred 2008) on ibrutinib though off 2/2 pancytopenia, hypothyroidism, HLD, osteopenia, childhood polio with residual flaccid paralysis RLE p/w weakness and symptomatic anemia Hgb 7.5 likely from ibrutinib. PLT 40s. s/p 2u pRBC. Likely needing rehab placement as lives alone and no family in area. - Patient Problems (1) Pancytopenia due to antineoplastic chemotherapy Current Visit: Yes Status: Acute Code(s): D61.810 - ANTINEOPLASTIC CHEMOTHERAPY INDUCED PANCYTOPENIA; T45.1X5A - ADVERSE EFFECT OF ANTINEOPLASTIC AND IMMUNOSUP DRUGS, INIT SNOMED Code(s): 473306413412577 Comment: s/p 2u pRBC. ANC 2500. PLT 42 (no DVT ppx). Hgb stable 9.6 Holding ibrutinib (for CLL) (2) Weakness Current Visit: Yes Status: Acute Code(s): R53.1 - WEAKNESS SNOMED Code(s) : 97967096 Comment: Likely combination of medication side effect, chronic polio weakness , symptamatic anema, hyponatremia. Potential post polio syndrome as well. 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 Lives alone, no family around. (3) Hyponatremia Current Visit: Yes Status: Acute Code(s): E87.1 - HYPO-OSMOLALITY AND HYPONATREMIA SNOMED Code(s): 34839572 Comment: Has gotten 100cc/hr NS for 2 days for presumed hypovolemic hyponatremia without improvement. Attests to between 2-3 quarts of water at home each day. Peripheral edema present, pt somewhat poor historian in this regard but perhaps slightly worse. Noticed slightly increased WOB with talking. NS stopped. BNP checked: 101. Uric acid wnl. Ulytes checked: Abdirahman 120, Uoscm 426 , FeNa 1.0%. Hypothyroidism present and may be contributing. (4) Hypothyroidism Current Visit: Yes Status: Acute Code(s): E03.9 - HYPOTHYROIDISM, UNSPECIFIED SNOMED Code(s): 48894131 Comment: continue levothyroxine 137 mcg daily. (5) HLD (hyperlipidemia) Current Visit: Yes Status: Acute Code(s): E78.5 - HYPERLIPIDEMIA, UNSPECIFIED SNOMED Code(s): 43079073 Comment: continue statin. (6) History of poliomyelitis Current Visit: Yes Status: Acute Code(s): Z86.12 - PERSONAL HISTORY OF POLIOMYELITIS SNOMED Code(s): 312554718 (7) Hx of chronic lymphocytic leukemia Current Visit: Yes Status: Acute Code(s): Z85.6 - PERSONAL HISTORY OF LEUKEMIA SNOMED Code(s): 31260800386953 Comment: Holding ibrutinib Status and Disposition: heme one inpatient. medicine covering today. Likely to SNF in next 24-48 hours.
[2018-05-25] MEDS: Levothyroxine TAB* 137 MCG TAB PO SCH (06:59)
[2018-05-25] MEDS: Omeprazole CAP* 20 MG PO SCH (06:59)
[2018-05-25] MEDS: Atorvastatin* 10 MG TAB PO SCH (08:59)
[2018-05-25] MEDS: Senna TAB PO SCH ×2 (08:59→20:10)
--- NOTE | 2018-05-25 09:33 | PN ---
Progress Note - Progress Note Date of Service: 05/25/18 SOAP: Subjective: [Continued weakness. No new complaints. Working with PT.] Objective: [ Laboratory Results - last 24 hr 05/24/18 05/24/18 05/24/18 07:18 07:18 12:00 Sodium 127 L Potassium 3.7 Chloride 103 Carbon Dioxide 20 L Anion Gap 4 BUN 10 Creatinine 0.37 L Est GFR ( Amer) 200.8 Est GFR (Non-Af Amer) 166.0 BUN/Creatinine Ratio 27.0 H Glucose 90 Uric Acid 3.1 Calcium 7.7 L B-Natriuretic Peptide 101 H Urine Osmolality 426 Ur Random Creatinine Ur Random Sodium 05/24/18 12:00 Sodium Potassium Chloride Carbon Dioxide Anion Gap BUN Creatinine Est GFR ( Amer) Est GFR (Non-Af Amer) BUN/Creatinine Ratio Glucose Uric Acid Calcium B-Natriuretic Peptide Urine Osmolality Ur Random Creatinine 34.91 Ur Random Sodium 120 Acetaminophen (Tylenol Tab*) 650 mg PO Q4H PRN PRN Reason: FEVER/PAIN Last Admin: 05/22/18 21:39 Dose: 325 mg Atorvastatin Calcium (Lipitor*) 10 mg PO DAILY [facility] Last Admin: 05/25/18 08:59 Dose: 10 mg Levothyroxine Sodium (Synthroid Tab*) 137 mcg PO DAILY@0600 [facility] Last Admin: 05/25/18 06:59 Dose: 137 mcg Omeprazole (Prilosec Cap*) 20 mg PO 0600 [facility] Last Admin: 05/25/18 06:59 Dose: 20 mg Oxycodone/Acetaminophen (Percocet 5/325 Tab*) 1 tab PO Q4H PRN PRN Reason: Pain Senna (Senokot Tab*) 1 tab PO BID [facility] Last Admin: 05/25/18 08:59 Dose: 1 tab Vital Signs: Temp Pulse Resp BP Pulse Ox 97.8 F 78 22 109/49 95 05/25/18 07:59 05/25/18 07:59 05/25/18 08:00 05/25/18 07:59 05/25/18 07:59 Exam: Gen: Very pleasant 83 yo female in NAD HEENT: MMM, no thrush CV: RRR, 3/6 SUMMER Resp: few crackles at lung bases Ext: trace LE edema Neuro: flaccid paralysis RLE, 2/5 strength LLE, UE 4/5 symmetrically] [Assessment: 83 yo female with 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 Plan: 1. Weakness - likely multifactorial with some chronic component, but now so severe that she was unable to even reposition in bed. Suspect exacerbation by ibrutinib for CLL - cont PT/OT - will need STR vs. potentially permanent placement 2. Pancytopenia, related to CLL - transfused 2U PRBCs, cont to monitor - stable since 3. CLL - hold Imbruvica indefinitely due to cytopenias and worsening weakness 4. hyponatremia: - acute on chronic - now euvolemic - cont to improve 5. hypothyroidism: - TSH 9.5, certainly contributing to her weakness - increase synthroid, recheck in 6-8 weeks 6. low protein: - suspect protein calorie malnutrition from poor access to nutrition - prealbumin 12 7. no DVT prophylaxis with this degree of thrombocytopenia full code Dispo: pending [facility] with likely transition to termite helper care]
[2018-05-26] MEDS: Omeprazole CAP* 20 MG PO SCH (05:49)
[2018-05-26] MEDS: Levothyroxine TAB* 137 MCG TAB PO SCH (05:49)
[2018-05-26] MEDS: Senna TAB PO SCH (09:13)
[2018-05-26] MEDS: Atorvastatin* 10 MG TAB PO SCH (09:13)
[2018-05-26 10:01] VITALS: BP 112/55
--- NOTE | 2018-05-26 10:51 | DS ---
AMENDED REPORT NOW INCLUDES DESIGNATED COSIGNER CC: Dr. Espinal; Dr. Capps.* DISCHARGE SUMMARY: DATE OF ADMISSION: 05/21/18 DATE OF DISCHARGE: 05/26/18 PRIMARY CARE PROVIDER: Urban Capps MD PRIMARY ONCOLOGIST: Kofi Espinal MD ATTENDING PHYSICIAN: Montez Salter MD * (DICTATED BY ALKA CHASE) DISCHARGING PROVIDER: ALKA Chase PRIMARY DISCHARGE DIAGNOSES: 1. Profound weakness. 2. Pancytopenia secondary to chronic lymphocytic leukemia and Imbruvica, status post transfusion of 2 units of packed red blood cells. 3. Hyponatremia. 4. Hypothyroidism, TSH of 9.5. 5. Protein-calorie malnutrition, moderate. DISCHARGE MEDICATIONS: 1. Calcitonin nasal spray 200 units inhale daily. 2. Omeprazole 20 mg p.o. daily. 3. Raloxifene 60 mg p.o. daily. 4. Simvastatin 20 mg p.o. daily. 5. Levothyroxine 137 mcg p.o. daily. 6. Percocet 5/325 one tablet p.o. q.4 hours as needed for pain. 7. Senna 1 tablet p.o. twice daily. MEDICATION CHANGES: 1. Increased levothyroxine from 112 to 137 mcg. 2. Start p.r.n. Percocet. 3. Start Senna. HOSPITAL IMAGING: Chest x-ray 05/21/18 shows chronic pleural parenchymal changes in the left lung base without definitive pneumonia. HOSPITAL COURSE: This is a very pleasant 83-year-old female with history of polio and chronic right lower extremity weakness as well as CLL for which she has recently been treated with Imbruvica, who had become progressively weak at home and presented to the emergency department by ambulance when her weakness progressed to the point that she was unable to reposition herself in bed. She was found to be pancytopenic with a neutrophil counts of 2200 and a total white blood cell count of 2700, hemoglobin of 7.5 and platelet count of 56,000. Chemistry panel showed mild hyponatremia, otherwise unremarkable. Also, of note , TSH was elevated to 9.5. Urine analysis was positive for trace leuke esterase and 1+ blood with no growth on subsequent culture. The patient was subsequently transfused 2 units of packed red blood cells and her Imbruvica was held during this hospitalization. She began to work with physical therapy with slight improvement in her mobility, but still was unable to stand or otherwise ambulate independently. Recommendation was for transfer to subacute rehab with likely transition to a need for long-term [facility]cfp. DISPOSITION AND FOLLOWUP PLAN: The patient is being discharged to [facility] [place]. Recommend followup with Dr. Espinal in 2 weeks and appointment has been made on her behalf for 06/09/18 at 10:50 a.m. CBC will be checked at that time. Plan at this time is to hold her Imbruvica indefinitely and further treatment of her CLL will depend on her clinical course moving forward. Of note , her levothyroxine dose was increased as noted above and she requires a repeat TSH in 6 to 8 weeks. ALKA CHASE [id number]/[facility] #: [id number] [place]
== END 2018-05-26 12:05 | DRG 809 ==
LOC: ED 15:55 → MED 20:14 → OBSVTOIN 23:59
PROVIDERS: ADMIT Internal Medicine Hematology & Oncology; ATTEND Internal Medicine Hematology & Oncology
PROC: 30233N1 Transfusion of Nonautologous Red Blood Cells into Peripheral Vein, Percutaneous Approach (ICD-10-PCS; principal; 2018-05-21)
DX: D61.810 Antineoplastic chemotherapy induced pancytopenia (principal); C91.10 Chronic lymphocytic leukemia of B-cell type not having achieved remission; E87.1 Hypo-osmolality and hyponatremia; E44.0 Moderate protein-calorie malnutrition; G83.11 Monoplegia of lower limb affecting right dominant side; E03.9 Hypothyroidism, unspecified; R53.1 Weakness; M81.0 Age-related osteoporosis without current pathological fracture; E78.5 Hyperlipidemia, unspecified; Z86.12 Personal history of poliomyelitis; Z79.899 Other long term (current) drug therapy; Z68.26 Body mass index [BMI] 26.0-26.9, adult
CPT/HCPCS: 36415; 71046; 80048; 80053; 81003; 81015; 82272; 82570; 82728; 83540; 83550; 83605; 83735; 83880; 83935; 84134; 84300; 84443; 84484; 84550; 85025; 86850; 86900; 86901; 86922; 87086; 93005; 99223; 99232; 99283; A9270-GY; G8978-GP-CM; G8979-GP-CI; G8987-GO-CM; G8988-GO-CI; J1650; P9040

== ENCOUNTER 2018-08-11 12:23 | Observation (INO) | payer MEDICARE ==
--- NOTE | 2018-08-11 12:39 | ED ---
Complex/Multi-Sys Presentation - HPI Summary HPI Summary: This pt is an 83 y/o female presenting to [facility] via EMS from [facility] for a blood transfusion. She has hx of chronic lymphocytic leukemia. Pt had blood drawn this morning and showed hemoglobin of 5.7. She was called to come to the ED for a blood transfusion. She reports cough and runny nose that began yesterday. Medical records note pt has been SOB on exertion with occasional cough. Denies fever, chills, sweats, chest pain, weakness, black stools. Her last transfusion was in May 2018. Denies hx of GI bleed. Denies tobacco use. Denies hx of asthma or COPD. 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 - History Of Current Complaint Hx Obtained From: Patient, Medical Records Onset/Duration: Lasting Days, Still Present Timing: Days Severity Currently: Moderate Location: Negative Aggravating Factor(s): nothing Alleviating Factor(s): nothing Associated Signs And Symptoms: Positive: SOB, Cough. Negative: Weakness, Chest Pain, Fever - Allergies/Home Medications Allergies/Adverse Reactions: Allergies Allergy/AdvReac Type Severity Reaction Status Date / Time No Known Allergies Allergy Verified 07/09/18 11:49 Home Medications: Home Medications Calcitonin NASAL(NF) [Fortical(NR)] 1 mg ALT NARE DAILY 08/11/18 [History Confirmed 08/11/18] Levothyroxine TAB* [Synthroid TAB*] 137 mcg PO DAILY 08/11/18 [History Confirmed 08/11/18] Omeprazole CAP (NF) [Prilosec CAP* 20 MG] 20 mg PO DAILY 08/11/18 [History Confirmed 08/11/18] Raloxifene (NF) [Evista(NF)] 60 mg PO DAILY 08/11/18 [History Confirmed 08/11/18 ] Simvastatin TAB(NF) [Zocor(NF)] 20 mg PO DAILY 08/11/18 [History Confirmed 08/11] PMH/Surg Hx/FS Hx/Imm Hx Endocrine/Hematology History: Reports: Hx Thyroid Disease Respiratory History: Denies: Hx Asthma, Hx Chronic Obstructive Pulmonary Disease (COPD) GI History: Reports: Hx Gastroesophageal Reflux Disease, Other GI Disorders - Esophageal "Outpouching" Musculoskeletal History: Reports: Other Musculoskeletal History - Polio Sensory History: Reports: Hx Contacts or Glasses, Hx Macular Degeneration Denies: Hx Deafness, Hx Hearing Aid Opthamlomology History: Reports: Hx Contacts or Glasses, Hx Macular Degeneration Neurological History: Reports: Other Neuro Impairments/Disorders - polio - Cancer History Cancer Type, Location and Year: Chronic lymphocytic leukemia Hx Chemotherapy: Yes - 3 YEARS AGO, LEUKEMIA Hx Radiation Therapy: Yes - 9 YEARS AGO, LEUKEMIA - Family History Known Family History: Negative: Respiratory Disease, Seizure Disorder - Social History Alcohol Use: None Substance Use Type: Reports: None Smoking Status (MU): Never Smoked Tobacco Have You Smoked in the Last Year: No Review of Systems Negative: Fever, Chills Negative: Erythema Positive: Nasal Discharge - runny nose. Negative: Sore Throat Negative: Chest Pain Positive: Shortness Of Breath, Cough Negative: Abdominal Pain, Vomiting, Nausea Negative: dysuria, hematuria Negative: Myalgia, Edema Negative: Rash Neurological: Other - NEG: dizziness Negative: Weakness All Other Systems Reviewed And Are Negative: Yes Physical Exam - Summary Physical Exam Summary: Constitutional: Well-developed, Well-nourished, Alert. (-) Distressed Skin: Warm, Dry HENT: Normocephalic; Atraumatic Eyes: Conjunctiva normal Neck: Musculoskeletal ROM normal neck. (-) JVD, (-) Stridor, (-) Tracheal deviation Cardio: Rhythm regular, rate normal, Heart sounds normal; Intact distal pulses; The pedal pulses are 2+ and symmetric. Radial pulses are 2+ and symmetric. (-) Murmur Pulmonary/Chest wall: Effort normal. (-) Respiratory distress, (-) Wheezes, (-) Rales Abd: Soft, (-) Tenderness, (-) Distension, (-) Guarding, (-) Rebound Musculoskeletal: (-) Edema. Right leg is in a brace. She is slightly weaker on the left. Lymph: (-) Cervical adenopathy Neuro: Alert, Oriented x3 Psych: Mood and affect Normal Triage Information Reviewed: Yes Vital Signs Reviewed: Yes Diagnostics - Laboratory Result Diagrams: 08/11/18 12:57 08/11/18 12:57 Lab Statement: Any lab studies that have been ordered have been reviewed, and results considered in the medical decision making process. - Radiology Chest XR Radiology Interpretation Completed By: Radiologist Summary of Radiographic Findings: IMPRESSION: Right basilar atelectasis versus consolidation. Recommend follow-up until resolution to exclude underlying pulmonary parenchymal pathology. Dr. France has reviewed this report. - EKG 12:47 Cardiac Rate: NL - at 79 bpm EKG Rhythm: Sinus Rhythm Summary of EKG Findings: No STEMI. Complex Multi-Symp Course/Dx Assessment/Plan: Pt is an 83 y/o female, with hx of chronic lymphocytic leukemia , who presents to the ED via EMS from [facility] for a blood transfusion. Pt had blood drawn this morning and showed hemoglobin of 5.7. She reports cough and runny nose that began yesterday. Medical records note pt has been SOB on exertion with occasional cough. Her last transfusion was in May 2018. Blood work shows WBC of 2.1, hemoglobin of 6.2, hematocrit of 18, platelet count of 33. Chest XR shows right basilar atelectasis versus consolidation. Recommend follow-up until resolution to exclude underlying pulmonary parenchymal pathology. I discussed the case with Dr. Espinal, oncologist, who accepted the pt for admission. - Diagnoses Provider Diagnoses: Symptomatic anemia, Chronic lymphocytic leukemia - Physician Notifications Discussed Care Of Patient With: Kofi Espinal - oncologist Time Discussed With Above Provider: 13:03 Instructed by Provider To: Admit As Inpatient Discharge - Sign-Out/Discharge Documenting (check all that apply): Patient Departure - Admit to [facility] All imaging exams completed and their final reports reviewed: Yes - Discharge Plan Condition: Stable Disposition: ADMITTED TO [facility] - Attestation Statements Document Initiated by Scribe: Yes Documenting Scribe: Zee Avila Provider For Whom Scribe is Documenting (Include Credential): Jc France MD Scribe Attestation: IZee, scribed for Jc France MD on 08/11/18 at 1611. Status of Scribe Document: Ready
[2018-08-11 13:23] LABS: Hematocrit 18 % (35-47); Hemoglobin 6.2 g/dl (12.0-16.0); Mean Corpuscular HGB Conc 35 g/dl (31-36); Mean Corpuscular Hemoglobin 34 pg (27-31); Mean Corpuscular Volume 98 fL (80-97); Mean Platelet Volume 9.7 fL (7.4-10.4); Platelet Count 33 10^3/ul (150-450); Red Blood Count 1.82 10^6/ul (4.00-5.40); Red Cell Distribution Width 26 % (10.5-15); White Blood Count 2.1 10^3/ul (3.5-10.8)
[2018-08-11 13:30] LABS: Activated Partial Thrombo Time 27.4 seconds (26.0-36.3); Anion Gap 8 mmol/L (2-11); BUN/Creatinine Ratio 35.7 (8-20); Blood Urea Nitrogen 20 mg/dL (6-24); CO2 Carbon Dioxide 20 mmol/L (22-32); Calcium 8.6 mg/dL (8.6-10.3); Chloride 102 mmol/L (101-111); EGFR African American 124.5 (>60); EGFR Non-African American 102.9 (>60); Glucose 109 mg/dL (70-100); INR 1.04 (0.77-1.02); Potassium 4.6 mmol/L (3.5-5.0); Sodium 130 mmol/L (135-145)
[2018-08-11] MEDS ORDERED: Albuterol 2.5 MG/3 ML NEB.SOL* (0.083%) INH PRN (14:18)
[2018-08-11] MEDS ORDERED: Acetaminophen TAB* 325 MG PO PRN (14:18)
[2018-08-11] MEDS ORDERED: Azithromycin TAB* 250 MG PO ONE (14:18)
[2018-08-11 15:36] LABS: % Iron Saturation 36 % (15-55); Iron 75 ug/dL (50-212); Total Iron Binding Capacity 207 mcg/dL (250-450); Transferrin 148 mg/dL (203-362)
[2018-08-11 15:54] LABS: Ferritin 1141.8 ng/mL (11-307)
[2018-08-11 16:14] LABS: Influenza A Molecular NEGATIVE (Negative); Influenza B Molecular NEGATIVE (Negative)
[2018-08-11 16:48] LABS: C Reactive Protein 53.74 mg/L (<8.01)
[2018-08-12] MEDS ORDERED: Levothyroxine TAB* 137 MCG TAB PO SCH (06:00)
[2018-08-12 06:05] LABS: BUN/Creatinine Ratio 36.7 (8-20); Calcium 8.2 mg/dL (8.6-10.3); EGFR African American 145.2 (>60); Potassium 4.2 mmol/L (3.5-5.0)
[2018-08-12 06:11] LABS: ABS Basophils 0 10^3/ul (0-0.2); ABS Eosinophils 0.1 10^3/ul (0-0.6); ABS Lymphocytes 0.3 10^3/ul (1.0-4.8); ABS Monocytes 0 10^3/ul (0-0.8); ABS Neutrophils 1.3 10^3/ul (1.5-7.7); ABS Nucleated RBC 0 10^3/ul; Eosinophil % 3.3 %; Hematocrit 25 % (35-47); Hemoglobin 8.6 g/dl (12.0-16.0); Lymphocyte % 18.3 %; Mean Corpuscular HGB Conc 35 g/dl (31-36); Mean Corpuscular Hemoglobin 33 pg (27-31); Mean Corpuscular Volume 92 fL (80-97); Mean Platelet Volume 8.8 fL (7.4-10.4); Nucleated Red Blood Cells % 0.7; Platelet Count 26 10^3/ul (150-450); Red Blood Count 2.65 10^6/ul (4.00-5.40); Red Cell Distribution Width 20 % (10.5-15); White Blood Count 1.7 10^3/ul (3.5-10.8)
[2018-08-12 08:01] VITALS: BP 107/52
[2018-08-12] MEDS ORDERED: Azithromycin TAB* 250 MG PO SCH (09:00)
[2018-08-12] MEDS ORDERED: Pantoprazole TAB * 40 MG TAB PO SCH (09:00)
[2018-08-12] MEDS ORDERED: Albuterol HFA INHALER* 8 gm MDI INH PRN (10:03)
--- NOTE | 2018-08-12 10:26 | DS ---
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 Community Aquired Pneumonia: d/c on Augmentin 3. GERD: resume home meds 4. Hypothyroidism: resume home meds 5. Hx. Polio with right leg paralysis: utilizing brace appropriately, LE edema r /t retention and mild hypoproteinemia Discharge Medications: Medication Instructions Recorded Confirmed Type Calcitonin NASAL(NF) [Fortical(NR)] 1 mg ALT NARE DAILY 08/11/18 08/11/18 History Levothyroxine TAB* [Synthroid 137 137 mcg PO DAILY 08/11/18 08/11/18 History MCG TAB*] Omeprazole CAP (NF) [Prilosec CAP* 20 mg PO DAILY 08/11/18 08/11/18 History 20 MG] Raloxifene (NF) [Evista(NF)] 60 mg PO DAILY 08/11/18 08/11/18 History Simvastatin TAB(NF) [Zocor 20 MG 20 mg PO DAILY 08/11/18 08/11/18 History (NF)] Acetaminophen TAB* [Tylenol TAB*] 650 mg PO Q6H PRN tab 08/12/18 Rx Albuterol HFA INHALER* [Ventolin 2 puff INH Q6H PRN #1 mdi 08/12/18 Rx HFA Inhaler*] Amoxicillin/Clavulanate TAB* 875 mg PO BID #20 tab 08/12/18 Rx [Augmentin TAB 875*] Hospital Course: Please see admission note for full H&P, however briefly, Mrs. Marcial is well known to our service due to her diagnosis of CLL now off therapy due to declining performance status being managed with intermittent blood transfusions. Mrs. Marcial presented to the ER yesterday, 08/11, due to severe anemia on monthly lab draw and was subsequently admitted for observation in order to receive 2 units PRBCs. During evaluation for admission it was noted that she had a cough with SOB and a Chest x-ray revealed mild atelectasis of the right lung base. Due to her mild neutropenia she was started on azithromycin with question of mild underlying COPD, however a CRP ordered yesterday evening returned elevated at 53 therefore she is being transitioned to Augmentin for community acquired pneumonia. She feels well today and agrees to discharge back to detention at [facility]. She will be discharged with thigh high compression for LE edema (retention related to mild hypoproteinemia) and will have repeat labs in 1 week and again in 2 weeks with MD follow-up. Plan of care was reviewed at length and all questions were answered. She has been encouraged to call our office should progressive SOB, cough, or fevers occur. >40 min spent with >50% face to face counseling
[2018-08-12] MEDS ORDERED: Amoxicillin/Clavulanate TAB* 875 MG PO SCH (11:00)
== END 2018-08-12 12:05 ==
LOC: ED 12:23 → MED 14:57
PROVIDERS: ADMIT Internal Medicine; ATTEND Internal Medicine Hematology & Oncology
DX: D64.9 Anemia, unspecified (principal); R06.02 Shortness of breath; K21.9 Gastro-esophageal reflux disease without esophagitis; E78.5 Hyperlipidemia, unspecified; E03.9 Hypothyroidism, unspecified; M81.0 Age-related osteoporosis without current pathological fracture; R05 Cough; C91.10 Chronic lymphocytic leukemia of B-cell type not having achieved remission
CPT/HCPCS: 36415; 71045; 80048; 82668; 82728; 83540; 83550; 83880; 84484; 85025; 85027; 85610; 85730; 86140; 86850; 86900; 86901; 86922; 87641; 93005; 94640; 99219; 99284; A9270-GY; G0378; P9040

== ENCOUNTER 2018-08-24 22:00 | Inpatient (IN) | payer MEDICARE ==
[2018-08-24] MEDS ORDERED: Albuterol/Ipratropium NEB.SOL* Albuterol 2.5 MG/Ipratropium 0.5 MG 3 ML INH ONE (22:02)
[2018-08-24] MEDS ORDERED: Magnesium Sulfate 2 GM IV* 2 GM/50 ML BAG ONE (22:04)
[2018-08-24] MEDS ORDERED: Magnesium Sulfate 2 GM IV* 2 GM/50 ML BAG IVPB ONE (22:04)
[2018-08-24] MEDS ORDERED: Albuterol 2.5 MG/3 ML NEB.SOL* (0.083%) INH ONE (22:10)
--- NOTE | 2018-08-24 22:12 | ED ---
Shortness of Breath - HPI Summary HPI Summary: This pt is an 83 y/o female presenting to [facility] via EMS from [facility] for respiratory distress. EMS reports the pt had pneumonia 2 weeks ago and was treated with antibiotics. EMS administered 10 mg dexamethasone and 1 duoneb ODD PIECE CHECKER. Per EMS, blood pressure ODD PIECE CHECKER is 123/72. PMHx includes chronic lymphocytic leukemia HPI is limited due to level 5 caveat - pt in respiratory distress. - History of Current Complaint Time Seen by Provider: 08/24/18 22:02 Hx Obtained From: Patient, EMS Hx From Patient Unobtainable Due To: Other - level 5 caveat - respiratory distress Onset/Duration: Lasting Hours, Still Present Current Severity: Severe Dyspnea At: Rest Aggrevating Factors: Nothing Alleviating Factors: Nothing Associated Signs & Symptoms: Wheezing - Allergy/Home Medications Allergies/Adverse Reactions: Allergies Allergy/AdvReac Type Severity Reaction Status Date / Time No Known Allergies Allergy Verified 07/09/18 11:49 PMH/Surg Hx/FS Hx/Imm Hx Endocrine/Hematology History: Reports: Hx Blood Transfusions, Hx Bone Marrow Disease - CLL, Hx Thyroid Disease Denies: Hx Diabetes Respiratory History: Denies: Hx Asthma, Hx Chronic Obstructive Pulmonary Disease (COPD) GI History: Reports: Hx Gastroesophageal Reflux Disease, Other GI Disorders - Esophageal "Outpouching" Musculoskeletal History: Reports: Other Musculoskeletal History - Polio Sensory History: Reports: Hx Contacts or Glasses, Hx Macular Degeneration Denies: Hx Deafness, Hx Hearing Aid Opthamlomology History: Reports: Hx Contacts or Glasses, Hx Macular Degeneration Neurological History: Reports: Other Neuro Impairments/Disorders - polio - Cancer History Cancer Type, Location and Year: Chronic lymphocytic leukemia Hx Chemotherapy: Yes - 3 YEARS AGO, LEUKEMIA Hx Radiation Therapy: Yes - 9 YEARS AGO, LEUKEMIA - Surgical History Surgery Procedure, Year, and Place: Right ankle stabilization for foot drop - Family History Known Family History: Negative: Respiratory Disease, Seizure Disorder - Social History Alcohol Use: None Substance Use Type: Reports: None Smoking Status (MU): Never Smoked Tobacco Have You Smoked in the Last Year: No Review of Systems - ROS Summary Review of Systems Summary: ROS is limited due to level 5 caveat - pt in respiratory distress Negative: Fever Positive: Shortness Of Breath All Other Systems Reviewed And Are Negative: No Physical Exam - Summary Physical Exam Summary: VITAL SIGNS: Reviewed. GENERAL: Patient is a well-developed and nourished female who is in respiratory distress. HEAD AND FACE: No signs of trauma. No ecchymosis, hematomas or skull depressions. No sinus tenderness. EYES: PERRLA, EOMI x 2, No injected conjunctiva, no nystagmus. EARS: Hearing grossly intact. Ear canals and tympanic membranes are within normal limits. MOUTH: Oropharynx within normal limits. NECK: Supple, trachea is midline, no adenopathy, no JVD, no carotid bruit, no c- spine tenderness, neck with full ROM. CHEST: Symmetric, no tenderness at palpation LUNGS: Decreased breath sounds bilaterally with rhonchi and wheezing. CVS: Regular rate and rhythm, S1 and S2 present, no murmurs or gallops appreciated. ABDOMEN: Soft, non-tender. No signs of distention. No rebound no guarding, and no masses palpated. Bowel sounds are normal. EXTREMITIES: FROM in all major joints, no edema, no cyanosis or clubbing. NEURO: Alert and oriented x 3. No acute neurological deficits. Speech is normal and follows commands. SKIN: Dry and warm Triage Information Reviewed: Yes Vital Signs On Initial Exam: Initial Vitals Temp Pulse Resp BP Pulse Ox 97.7 F 98 43 105/82 96 08/24/18 22:04 08/24/18 22:04 08/24/18 22:04 08/24/18 22:04 08/24/18 22:04 Vital Signs Reviewed: Yes Diagnostics - Laboratory Result Diagrams: 08/24/18 22:39 08/24/18 22:31 Lab Statement: Any lab studies that have been ordered have been reviewed, and results considered in the medical decision making process. - Radiology Chest XR Radiology Interpretation Completed By: ED Physician Summary of Radiographic Findings: Bilateral pneumonia. Pending official radiology report. - EKG 2251 Cardiac Rate: NL - at 96 bpm EKG Rhythm: Sinus Rhythm Summary of EKG Findings: Nonspecific ST changes. Course/Dx - Course Assessment/Plan: pt is an 83 y/o female, with hx of chronic lymphocytic leukemia , who presents to the ED via EMS from [facility] for respiratory distress. EMS reports the pt had pneumonia 2 weeks ago and was treated with antibiotics. EMS administered 10 mg dexamethasone and 1 duoneb ODD PIECE CHECKER. Per EMS, blood pressure ODD PIECE CHECKER is 123/72. Blood work, ABG, EKG, CXR obtained. Labs show WBC of 1.7, hemoglobin of 7.8, hematocrit of 22, platelet count of 36, sodium of 112, creatinine of 0.39, troponin of 0.31, CRP of 108, BNP of 381. Chest XR shows bilateral pneumonia. In the ED course the pt was given albuterol, duoneb, Levaquin, magnesium sulfate. Discussed pt care with Dr. Foster, hospitalist, who accepted the pt for admission. - Diagnoses Provider Diagnoses: CHF (congestive heart failure), Pneumonia, Pancytopenia, Hyponatremia - Physician Notifications Discussed Care of Patient With: Alyse Foster - hospitalist Time Discussed With Above Provider: 23:17 Instructed by Provider To: Admit As Inpatient - Critical Care Time Critical Care Time: 30-74 min - 40 minutes Discharge - Sign-Out/Discharge Documenting (check all that apply): Patient Departure - Admit to [facility] Patient Received Moderate/Deep Sedation with Procedure: No - Discharge Plan Condition: Stable Disposition: ADMITTED TO [facility] Referrals: Urban Capps MD [Primary Care Provider] - - Attestation Statements Document Initiated by Scribe: Yes Documenting Scribe: Zee Avila Provider For Whom Scribe is Documenting (Include Credential): Jacob Lott MD Scribe Attestation: Zee Ravi scribed for Jacob Lott MD on 08/24/18 at 2331. Status of Scribe Document: Ready
[2018-08-24] MEDS: Albuterol 2.5 MG/3 ML NEB.SOL* (0.083%) INH SCH ×3 (22:20→22:42)
[2018-08-24 22:50] LABS: Hematocrit 22 % (35-47); Hemoglobin 7.8 g/dl (12.0-16.0); Mean Corpuscular HGB Conc 35 g/dl (31-36); Mean Corpuscular Hemoglobin 33 pg (27-31); Mean Corpuscular Volume 93 fL (80-97); Mean Platelet Volume 9.1 fL (7.4-10.4); Platelet Count 36 10^3/ul (150-450); Red Blood Count 2.37 10^6/ul (4.00-5.40); Red Cell Distribution Width 23 % (10.5-15); White Blood Count 1.7 10^3/ul (3.5-10.8)
[2018-08-24 23:02] LABS: Activated Partial Thrombo Time 27.8 seconds (26.0-36.3); INR 1.12 (0.77-1.02)
[2018-08-24 23:04] LABS: Albumin/Globulin Ratio 1.3 (1-3); BUN/Creatinine Ratio 30.8 (8-20); C Reactive Protein 108.37 mg/L (<8.01); EGFR Non-African American 156.2 (>60); Globulin 2.4 g/dL (2-4); Potassium 4.3 mmol/L (3.5-5.0); Total Bilirubin 1.9 mg/dL (0.2-1.0); Total Protein 5.4 g/dL (6.4-8.9)
[2018-08-24 23:12] LABS: ABS Basophils 0 10^3/ul (0-0.2); ABS Eosinophils 0 10^3/ul (0-0.6); ABS Lymphocytes 0.2 10^3/ul (1.0-4.8); ABS Monocytes 0 10^3/ul (0-0.8); ABS Neutrophils 1.5 10^3/ul (1.5-7.7); ABS Nucleated RBC 0 10^3/ul; Lymphocyte % 12.4 %; Nucleated Red Blood Cells % 0.3
[2018-08-24 23:15] LABS: Burr Cells 1+
[2018-08-24 23:16] LABS: Polychromasia 1+
[2018-08-24] MEDS ORDERED: Levofloxacin 750 MG IVPREMIX(* 750 MG/150 ML BAG IVPB ONE (23:16)
[2018-08-24 23:22] LABS: Troponin I 0.31 ng/mL (<0.04)
[2018-08-24] MEDS ORDERED: Furosemide IV* 10 MG/ML 2 ML VIAL (20 MG) IV SLOW PU ONE (23:44)
[2018-08-25] MEDS ORDERED: Al Hydrox/Mg Hydrox/Simet LIQ* 30 ML UDC PO PRN (00:43)
[2018-08-25] MEDS ORDERED: Acetaminophen TAB* 325 MG PO PRN (00:43)
[2018-08-25] MEDS ORDERED: Ondansetron INJ* 2 MG/ML VIAL IV PRN (00:43)
[2018-08-25] MEDS ORDERED: NS 0.9% 250 ML* 250 ML IV ONE (00:43)
[2018-08-25] MEDS ORDERED: Albuterol 2.5 MG/3 ML NEB.SOL* (0.083%) INH PRN (00:47)
[2018-08-25] MEDS ORDERED: Vancomycin(*) 1,000 MG in NS 0.9% 250 ML* 250 ML IVPB ONE (01:13)
[2018-08-25 01:23] LABS: TSH (Thyroid Stimulating Horm) 2.99 mcIU/mL (0.34-5.60)
[2018-08-25] MEDS ORDERED: oxyCODONE/Acetamin 5/325 MG* TAB PO PRN (01:50)
[2018-08-25 01:53] LABS: Magnesium 2.2 mg/dL (1.9-2.7)
[2018-08-25] MEDS ORDERED: Zosyn per Pharmacy* NOTE FOLLOW UP SCH (02:00)
[2018-08-25] MEDS ORDERED: Vancomycin(*) 0 MG in NS 0.9% 250 ML* 250 ML IVPB SCH (02:00)
[2018-08-25] MEDS ORDERED: Zosyn 3.375 gm X 1 dose, then dose per Pharmacy IVPB ONE ×2 (02:00)
[2018-08-25 02:37] LABS: Troponin I 0.23 ng/mL (<0.04)
[2018-08-25 02:52] LABS: Influenza A Molecular NEGATIVE (Negative); Influenza B Molecular NEGATIVE (Negative)
[2018-08-25] MEDS: Morphine ORAL.SOLN 10 mg* 2 MG/ML UDC 5 ml PO PRN ×2 (02:53→22:39)
[2018-08-25 05:22] LABS: BUN/Creatinine Ratio 31.7 (8-20); Calcium 7.8 mg/dL (8.6-10.3); EGFR African American 178.4 (>60); EGFR Non-African American 147.4 (>60); Potassium 4.2 mmol/L (3.5-5.0)
[2018-08-25] MEDS ORDERED: Sodium Chloride 3% HYPERTONIC* 500 ML IVPB ONE ×2 (05:29)
--- NOTE | 2018-08-25 05:40 | PN ---
Progress Note - Progress Note Date of Service: 08/25/18 Note: Patient received NS 250 cc bolus and lasix, Na remains 112. Awaiting Ur NA. Will start low dose hypertonic saline. Follow BMP closely.
[2018-08-25] MEDS: Levothyroxine TAB* 137 MCG TAB PO SCH (06:19)
[2018-08-25] MEDS: ZOSYN 3.375 GM Q8H per EXTENDED INFUSION IVPB SCH ×6 (06:19→22:43)
[2018-08-25] MEDS ORDERED: Vancomycin per Pharmacy* NOTE FOLLOW UP PRN (06:55)
[2018-08-25 07:24] LABS: Albumin 2.8 g/dL (3.2-5.2); Albumin/Globulin Ratio 1.3 (1-3); BUN/Creatinine Ratio 36.8 (8-20); Calcium 7.5 mg/dL (8.6-10.3); EGFR African American 194.8 (>60); Globulin 2.2 g/dL (2-4); Hematocrit 21 % (35-47); Hemoglobin 7.6 g/dl (12.0-16.0); Mean Corpuscular HGB Conc 36 g/dl (31-36); Mean Corpuscular Hemoglobin 33 pg (27-31); Mean Corpuscular Volume 93 fL (80-97); Mean Platelet Volume 9.9 fL (7.4-10.4); Platelet Count 32 10^3/ul (150-450); Potassium 4.2 mmol/L (3.5-5.0); Red Cell Distribution Width 23 % (10.5-15); Total Bilirubin 1.6 mg/dL (0.2-1.0); White Blood Count 1.4 10^3/ul (3.5-10.8)
[2018-08-25 07:58] LABS: ABS Basophils 0 10^3/ul (0-0.2); ABS Eosinophils 0 10^3/ul (0-0.6); ABS Lymphocytes 0.1 10^3/ul (1.0-4.8); ABS Monocytes 0 10^3/ul (0-0.8); ABS Neutrophils 1.3 10^3/ul (1.5-7.7); ABS Nucleated RBC 0 10^3/ul; Eosinophil % 0.1 %; Lymphocyte % 6.7 %; Nucleated Red Blood Cells % 0.2
--- NOTE | 2018-08-25 08:03 | HP ---
CC: [facility] * HISTORY AND PHYSICAL: DATE OF ADMISSION: 08/25/18 TIME OF EVALUATION: 010 PRIMARY CARE: [facility]. CHIEF COMPLAINT: Shortness of breath. HISTORY OF PRESENT ILLNESS: This is an 83-year-old female with a past medical history of CLL, not on treatment, with a history of pancytopenia, who was recently admitted and discharged on 08/12/18 for what appeared to be community- acquired pneumonia, has been in [facility] since May for worsening decline in her clinical condition, presents to the emergency room with shortness of breath and productive cough. The patient states since her discharge from the hospital on 08/12/18, her shortness of breath has gotten progressively worse with productive cough. She denies any chest pain. She states she has been more lightheaded over the past week. She has had some loose stools. No nausea or vomiting. Over the past few days, she states she has been unable to get out of bed due to how short of breath she is. She has had some urinary frequency. Denies any burning with urination. As mentioned, she has had about 3 loose stools per day over the past several days. No abdominal pain. No fevers. She states she has gained about 3 pounds. She does have lower extremity swelling, more significant on the right side, which is not unusual for her. At [facility], the patient was transferred to the emergency room for a low oxygen saturation, 91% on 2 L and difficulty breathing. She had a temperature of 99.5, pulse rate 95, respiratory rate 24, blood pressure 138/82. In the emergency room, the patient had labs and imaging. She was initially started on BiPAP and switched over to a Salter. She was given Levaquin, Lasix, DuoNeb, and referred to the hospitalist service for further evaluation. She did get Decadron per RN report via EMS. PAST MEDICAL HISTORY: 1. History of nasopharyngeal CLL diagnosed in 2002, no longer on treatment due to poor performance status. 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 2. History of polio with right lower extremity paralysis. 3. Osteoporosis. 4. Hypothyroidism. 5. Hyperlipidemia. 6. GERD. MEDICATIONS: 1. Albuterol every 4 hours as needed. 2. Calcitonin spray each naris daily. 3. Zinc oxide to the buttock as needed b.i.d. 4. Ipratropium 4 times a day. 5. Levaquin 750 mg p.o. daily, started on 08/24/18. 6. Synthroid 137 mcg p.o. daily. 7. Omeprazole 20 mg daily. 8. Raloxifene 60 mg daily. 9. Simvastatin 20 mg daily. 10. Tylenol 650 mg every 6 hours as needed. 11. The patient is also stared on prednisone 40 mg p.o. x1. ALLERGIES: No known drug allergies. FAMILY HISTORY: Reviewed and noncontributory. SOCIAL HISTORY: The patient is residing at [facility] since May 2018. She does ambulate. No history of smoking, alcohol or illicit drug use. Her healthcare proxy is her friend Radha Darling, phone number [phone]. Code status, we discussed her code status DNR/DNI. She hesitated on intubation if her breathing did get worse. We discussed we would readdress this but for now she remains a "do not intubate." REVIEW OF SYSTEMS: A 14-point review of systems as mentioned in the HPI, otherwise negative. PHYSICAL EXAMINATION GENERAL: The patient is tachypneic with a significant increase of work of breathing with moderate respiratory distress. VITAL SIGNS: Temp 98.4, pulse rate 96, respiratory rate is 40, oxygen saturation is 93% on 6 L nasal cannula, blood pressure 104/59. HEENT: Head: Normocephalic. Pupils equal and reactive. Anicteric. Oropharynx: Mucous membranes dry. NECK: Supple. No lymphadenopathy. RESPIRATORY: Diminished breath sounds. Diffuse rhonchi with bilateral expiratory wheezing. Increased work of breathing and tachypnea. CARDIAC: Tachycardic. Soft systolic murmur heard throughout. ABDOMEN: Soft, nontender, nondistended. EXTREMITIES: She does have +2 lower extremity edema, more pronounced in the right lower extremity. +1 DP. NEUROLOGIC: Alert and oriented x3. LABORATORY DATA: White count 1.7, hemoglobin 7.8, hematocrit 22, platelets 36. INR is 1.12. Blood gases, pH of 7.45, PCO2 of 24, PO2 is 115. Sodium is 112, potassium 4.3, chloride 84, bicarb 19, BUN 12, creatinine 0.39. Total bili is 1.9, AST 26, ALT is 17, troponin 0.31, CRP is 108, BNP is 381. RADIOGRAPHIC DATA: EKG shows sinus rhythm with a rate of 96. Chest x-ray consistent with bilateral infiltrates and some pulmonary vascular congestion superimposed on this. ASSESSMENT: This is an 83-year-old female with a past medical history of CLL, not on treatment, with pancytopenia, who presents to the emergency room with worsening respiratory distress. 1. Acute respiratory distress. Assessment: Most likely etiology is healthcare - associated pneumonia with a likely component of acute compensated congestive heart failure with an elevated troponin. She does not have any chest pain. Plan: I am switching over to Vapotherm for work of breathing. I am going to continue on broad spectrum antibiotics. We will change her to vancomycin and Zosyn for now. Obtain sputum cultures, legionella, pneumococcal. Blood cultures were drawn in the emergency room, which need to be followed up on. I think there is a component of COPD. It appears that they thought this 2 weeks ago as well. We will continue her on prednisone and nebulizer treatments and DuoNeb as well. Also going to order an echocardiogram to look for any factor contributing to her respiratory distress. We will also trend her troponin. 2. Hyponatremia. 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 She appears dry to me despite having component of heart failure on her chest x-ray. Plan: She got Lasix in the emergency room. We are going to give her a bolus of 250 cc and repeat her BNP. Check her urine osmolality, serum osmolality and urine sodium. If no response, will start low dose of hypertonic saline. 3. Chronic medical problems. We will resume her home medications as prescribed. 4. FEN: If the patient could tolerate a regular diet, we will start her on one if her respiratory status improves on Vapotherm. 5. DVT prophylaxis: We will order SCDs in the setting of the patient's thrombocytopenia, anticoagulation is contraindicated. 6. Code status: The patient confirms she is a DNR/DNI. PATIENT TIME: Greater than 50 minutes spent doing the history and physical, more than half the time spent in direct patient contact and critical care time. I will sign out to Dr. Peña as well to take over in the morning. [id number]/[facility] [place] #: [id number] [facility] CENTERaMry
--- NOTE | 2018-08-25 08:45 | ECHO ---
Patient: PARDEEP PEACE [facility] Rec#: [id number] : 1935 Date: 08/25/2018 Age: 83y Height: 157 cm / 61.8 in Weight: 59.1 kg / 130.3 lbs Sex: F BSA: 1.59 Room#: [facility] Admit Date#: 08/25/2018 Type: Inpatient Referring: Alyse Foster Reading: Michi Jordan MD Barge Worker: Miguelina Rob RDCS CC: Urban Capps MD Transthoracic Echocardiogram Indication: Shortness of breath BP: 97/52 HR: 87 Rhythm: NSR Findings History: Chronic lymphocytic leukemia, chemotherapy and radiation. Technical Comments: The study quality is fair. The study is technically limited due to poor parasternal windows. Left Ventricle: The left ventricular chamber size is decreased. There is no left ventricular hypertrophy. Global left ventricular wall motion and contractility are within normal limits. Left ventricular systolic function is at the lower limits of normal. The estimated ejection fraction is 50-55%. Abnormal left ventricular diastolic function is observed. There is an E to A reversal in the mitral valve flow pattern suggestive of diastolic dysfunction. Left Atrium: The left atrial chamber size is normal. Right Ventricle: The right ventricular cavity size is normal. The right ventricular global systolic function is normal. Right Atrium: The right atrial cavity size is normal. Aortic Valve: The aortic valve is trileaflet. The aortic valve leaflets are mildly thickened. There is mild aortic regurgitation. There is no evidence of aortic stenosis. The measured aortic regurgitation pressure half-time is 464 msec. Mitral Valve: There is mitral annular calcification. The mitral valve leaflets are mildly thickened. There is trace to mild mitral regurgitation. There is no evidence of mitral stenosis. Tricuspid Valve: The tricuspid valve leaflets are normal. There is mild tricuspid regurgitation. The right ventricular systolic pressure is estimated at 24 mmHg. No pulmonary hypertension is noted. There is no tricuspid stenosis. Pulmonic Valve: The pulmonic valve appears normal. There is a trace pulmonic regurgitation. There is no pulmonic stenosis. Pericardium: There is no significant pericardial effusion. Aorta: There is mild dilatation of the ascending aorta. The aortic arch is not well visualized. The aortic root is normal in size. Pulmonary Artery: The main pulmonary artery is not well visualized. Venous: The inferior vena cava appears normal in size. There is a greater than 50% respiratory change in the inferior vena cava dimension. Summary: There was not any prior study for comparison. Conclusions Global left ventricular wall motion and contractility are within normal limits. Left ventricular systolic function is at the lower limits of normal. The estimated ejection fraction is 50-55%. There is an E to A reversal in the mitral valve flow pattern suggestive of diastolic dysfunction. The aortic valve leaflets are mildly thickened. There is mild aortic regurgitation. There is no evidence of aortic stenosis. The mitral valve leaflets are mildly thickened. There is trace to mild mitral regurgitation. There is mild tricuspid regurgitation. No pulmonary hypertension is noted. There is no significant pericardial effusion. Measurements Name Value Normal Range RVIDd (AP) 2D 2.1 cm (0.9 - 2.6) RVDdMajor (2D) 3.4 cm (2.2 - 4.4) RAd ISD 4CH 4.3 cm (3.4 - 4.9) RA (A4C)W 3 cm (2.9 - 4.6) IVSd (2D) 1 cm (0.6 - 1) LVPWd (2D) 0.9 cm (0.6 - 1) LVIDd (2D) 3.5 cm (3.6 - 5.4) LVIDs (2D) 2.7 cm - LV FS (2D) 21 % (25 - 45) Aortic Annulus 2.1 cm (1.4 - 2.6) Ao root diameter (2D) 2.9 cm (2.1 - 3.5) Ascending Ao 3.8 cm (2.1 - 3.4) LA dimension (AP) 2D 3.7 cm (2.3 - 3.8) LAd ISD 4CH 4.8 cm (2.9 - 5.3) LA ISD 4CH W 3.3 cm (2.5 - 4.5) Name Value Normal Range LA ESV BP (A/L) index 18 ml/m2 - Name Value Normal Range MV E-wave Vmax 0.7 m/sec - MV deceleration time 254 msec - MV A-wave Vmax 1 m/sec - MV E:A ratio 0.7 ratio - LV septal e' Vmax 0.06 m/sec - LV lateral e' Vmax 0.07 m/sec - LV E:e' septal ratio 11.7 ratio - LV E:e' lateral ratio 10 ratio - Name Value Normal Range AV Vmax 1.3 m/sec - AV VTI 25 cm - AV peak gradient 7 mmHg - AV mean gradient 3 mmHg - LVOT Vmax 1 m/sec - LVOT VTI 20 cm - LVOT peak gradient 4 mmHg - LVOT mean gradient 3 mmHg - AR PHT 464 msec - Name Value Normal Range TR Vmax 2.3 m/sec - TR peak gradient 21 mmHg - RAP 3 mmHg - RVSP 24 mmHg - IVC diameter 1.7 cm - Name Value Normal Range PV Vmax 0.8 m/sec - PV peak gradient 2 mmHg -
[2018-08-25] MEDS ORDERED: predniSONE TAB* 20 MG PO SCH (09:00)
[2018-08-25] MEDS: Pantoprazole TAB * 40 MG TAB PO SCH (09:16)
[2018-08-25] MEDS: Calcitonin NASAL(NF) 200 UNITS/SPRAY NASAL.SPR ALT NARE SCH (09:21)
[2018-08-25] MEDS: Albuterol/Ipratropium NEB.SOL* Albuterol 2.5 MG/Ipratropium 0.5 MG 3 ML INH PRN (12:16)
--- NOTE | 2018-08-25 14:28 | CONSULT ---
Consult Consult: Consultation Note -- Critical Care Requesting Physician: Dr Alyse Foster Reason for consult: pneumonia, hyponatremia Limitations in history/physical: none Date of consult: 08/25/2018 HPI: 83y F w/pmhx of CLL not on tx, pancytopenia, hypothyroidism, GERD, h/o polio Right lower ext; recent admission 08/12 for CAP. She resides in [place] due to progressive decline in clinical status. Presented to ER 08/25 for increasing dyspnea, productive cough, lightheadedness+. no diarrhea/blood over the past few days+. She presented with low O2 sat 91% on 2 L, tmax 99.5, tachycardic, tachypneic. CXR demonstrated bilateral lower lobe congestion vs infiltrate. She was placed on hiflow, IV abx for possible pneumonia. Overnight on hiflow, remains on it now. SHe has some tachypnea, afebrile. on 40% 30lpm hiflow. cough+ , sputum+. Developed sudden increased sob. She has baseline Right leg swelling, uses a walker otherwise. ROS: negative except for pertinent positives mentioned above. 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 ambulates+. Allergies: NKDA Home Medications: Calcitonin NASAL(NF) [Fortical(NR)] 1 mg ALT NARE DAILY 08/11/18 [History Confirmed 08/11/18] Levothyroxine TAB* [Synthroid 137 MCG TAB*] 137 mcg PO DAILY 08/11/18 [History Confirmed 08/11/18] Omeprazole CAP (NF) [Prilosec CAP* 20 MG] 20 mg PO DAILY 08/11/18 [History Confirmed 08/11/18] Raloxifene (NF) [Evista(NF)] 60 mg PO DAILY 08/11/18 [History Confirmed 08/11/18 ] Simvastatin TAB(NF) [Zocor 20 MG (NF)] 20 mg PO DAILY 08/11/18 [History Confirmed 08/11/18] Acetaminophen TAB* [Tylenol TAB*] 650 mg PO Q6H PRN tab 08/12/18 [Rx] Albuterol HFA INHALER* [Ventolin HFA Inhaler*] 2 puff INH Q6H PRN #1 mdi [Rx] Amoxicillin/Clavulanate TAB* [Augmentin TAB 875*] 875 mg PO BID #20 tab [Rx] Tele: NSR Vitals: Vital Signs Temp 98.4 F 08/25/18 12:00 Pulse 84 08/25/18 15:01 Resp 39 08/25/18 15:01 BP 120/62 08/25/18 15:00 Pulse Ox 93 08/25/18 15:01 Intake & Output 08/24/18 08/25/18 08/25/18 18:59 06:59 18:59 Intake Total 200 1510 Output Total 50 0 Balance 150 1510 Weight 61.825 kg Intake: IV Fluids 200 216 3% Sodium Chloride 136 NS (0.9%) 80 IVPB 454 ABX - VANCOMYCIN 231 ABX - ZOSYN 223 Oral 840 Output: Urine 50 0 O2/Vent: hiflow 40% 30lpm Infusions: 3% Na @ 30cc/hr Current Medications: Acetaminophen (Tylenol Tab*) 650 mg PO Q4H PRN PRN Reason: FEVER/PAIN Al Hydrox/Mg Hydrox/Simethicone (Maalox Plus*) 30 ml PO Q6H PRN PRN Reason: INDIGESTION Albuterol (Ventolin 2.5 Mg/3 Ml Neb.Nani*) 2.5 mg INH Q2H PRN PRN Reason: SOB/WHEEZING Albuterol/Ipratropium (Duoneb (Albuterol 2.5 Mg/Ipratropium 0.5 Mg)) 1 neb INH Q4H PRN PRN Reason: SOB/WHEEZING Last Admin: 08/25/18 12:16 Dose: 1 neb Calcitonin [place] (Fortical(Nr)) 200 units ALT NARE DAILY [facility]; Protocol Last Admin: 08/25/18 09:21 Dose: Not Given Piperacillin Sod/Tazobactam (Sod 3.375 gm/ Sodium Chloride) 100 mls @ 25 mls/ hr IVPB Q8H CRIST[facility] Last Admin: 08/25/18 15:10 Dose: 25 mls/hr Vancomycin HCl 1,000 mg/ (Sodium Chloride) 250 mls @ 166.667 mls/hr IVPB Q12H [facility] Levothyroxine Sodium (Synthroid Tab*) 137 mcg PO DAILY@0600 [facility] Last Admin: 08/25/18 06:19 Dose: 137 mcg Methylprednisolone Sodium Succinate (Solu-Medrol 40 Mg) 40 mg IV Q8H [facility] Morphine Sulfate (Morphine Oral.Soln 10 Mg*) 2 mg PO Q2H PRN PRN Reason: Pain or work of breathing Last Admin: 08/25/18 02:53 Dose: 2 mg Ondansetron HCl (Zofran Inj*) 4 mg IV Q4H PRN PRN Reason: NAUSEA/VOMITING Oxycodone/Acetaminophen (Percocet 5/325 Tab*) 1 tab PO Q4H PRN PRN Reason: PAIN Pantoprazole Sodium (Protonix Tab*) 40 mg PO DAILY [facility] Last Admin: 08/25/18 09:16 Dose: 40 mg Pharmacy Consult (Zosyn Per Pharmacy*) 1 note FOLLOW UP .ZOSYN PER PHARMACY [facility] Pharmacy Consult (Vancomycin Per Pharmacy*) 1 note FOLLOW UP . PRN PRN Reason: PER PROTOCOL Pharmacy Profile Note (Vancomycin Trough Check) 1 note FOLLOW UP 529 ONE Stop: 08/27/18 05:31 Physical Exam: General: awake, alert, mild resp distress+, no diaphoresis Head: normocephalic, atraumatic HEENT: no pallor, no icterus, moist mucous membranes Neck: soft, supple, no jvd, no stridor CVS: normal rate, regular, no murmur Resp: bilateral air entry, basilar crackles+, scattered mild wheeze+, no rhonchi , no acc muscle use Abdomen: soft, nontender, nondistended, bowel sounds + Ext: pulses+, warm; Right LE edema 2+, Left lower neg; both warm Skin: intact Neuro: awake, alert, orientedx3, moving all extremities, no gross focal deficit Labs: Laboratory Results - last 24 hr 08/24/18 08/24/18 08/24/18 22:30 22:31 22:31 WBC RBC Hgb Hct MCV MCH MCHC RDW Plt Count MPV Neut % (Auto) Lymph % (Auto) Leslie % (Auto) Eos % (Auto) Baso % (Auto) Absolute Neuts (auto) Absolute Lymphs (auto) Absolute Monos (auto) Absolute Eos (auto) Absolute Basos (auto) Absolute Nucleated RBC Nucleated RBC % Polychromasia Anisocytosis [place] Cells INR (Anticoag Therapy) 1.12 H APTT 27.8 ABG pH ABG pCO2 ABG pO2 ABG HCO3 ABG O2 Saturation ABG Base Excess Sodium 112 L* Potassium 4.3 Chloride 84 L Carbon Dioxide 19 L Anion Gap 9 BUN 12 Creatinine 0.39 L Est GFR ( Amer) 189.0 Est GFR (Non-Af Amer) 156.2 BUN/Creatinine Ratio 30.8 H Glucose 113 H Serum Osmolality 242 L Lactic Acid Calcium 8.0 L Magnesium 2.2 Total Bilirubin 1.90 H AST 26 ALT 17 Alkaline Phosphatase 32 L Troponin I 0.31 H* C-Reactive Protein 108.37 H B-Natriuretic Peptide Total Protein 5.4 L Albumin 3.0 L Globulin 2.4 Albumin/Globulin Ratio 1.3 Prealbumin 7 L TSH 2.99 Influenza A (Rapid) Influenza B (Rapid) 08/24/18 08/24/18 08/24/18 22:39 22:39 22:39 WBC 1.7 L RBC 2.37 L Hgb 7.8 L Hct 22 L MCV 93 MCH 33 H MCHC 35 RDW 23 H Plt Count 36 L MPV 9.1 Neut % (Auto) 85.0 Lymph % (Auto) 12.4 Leslie % (Auto) 1.1 Eos % (Auto) 1.0 Baso % (Auto) 0.5 Absolute Neuts (auto) 1.5 Absolute Lymphs (auto) 0.2 L Absolute Monos (auto) 0 Absolute Eos (auto) 0 Absolute Basos (auto) 0 Absolute Nucleated RBC 0 Nucleated RBC % 0.3 Polychromasia 1+ Anisocytosis 2+ [place] Cells 1+ INR (Anticoag Therapy) APTT ABG pH ABG pCO2 ABG pO2 ABG HCO3 ABG O2 Saturation ABG Base Excess Sodium Potassium Chloride Carbon Dioxide Anion Gap BUN Creatinine Est GFR ( Amer) Est GFR (Non-Af Amer) BUN/Creatinine Ratio Glucose Serum Osmolality Lactic Acid 1.3 Calcium Magnesium Total Bilirubin AST ALT Alkaline Phosphatase Troponin I C-Reactive Protein B-Natriuretic Peptide 381 H Total Protein Albumin Globulin Albumin/Globulin Ratio Prealbumin TSH Influenza A (Rapid) Influenza B (Rapid) 08/24/18 08/25/18 08/25/18 22:39 02:02 02:39 WBC RBC Hgb Hct MCV MCH MCHC RDW Plt Count MPV Neut % (Auto) Lymph % (Auto) Leslie % (Auto) Eos % (Auto) Baso % (Auto) Absolute Neuts (auto) Absolute Lymphs (auto) Absolute Monos (auto) Absolute Eos (auto) Absolute Basos (auto) Absolute Nucleated RBC Nucleated RBC % Polychromasia Anisocytosis [place] Cells INR (Anticoag Therapy) APTT ABG pH 7.45 ABG pCO2 24 L ABG pO2 115 H ABG HCO3 20.6 ABG O2 Saturation 99.4 H ABG Base Excess -5.5 L Sodium 112 L* Potassium 4.2 Chloride 84 L Carbon Dioxide 14 L* Anion Gap 14 H BUN 13 Creatinine 0.41 L Est GFR ( Amer) 178.4 Est GFR (Non-Af Amer) 147.4 BUN/Creatinine Ratio 31.7 H Glucose 148 H Serum Osmolality Lactic Acid Calcium 7.8 L Magnesium Total Bilirubin AST ALT Alkaline Phosphatase Troponin I 0.23 H* C-Reactive Protein B-Natriuretic Peptide Total Protein Albumin Globulin Albumin/Globulin Ratio Prealbumin TSH Influenza A (Rapid) Negative Influenza B (Rapid) Negative 08/25/18 08/25/18 08/25/18 05:58 05:58 10:45 WBC 1.4 L RBC 2.30 L Hgb 7.6 L Hct 21 L MCV 93 MCH 33 H MCHC 36 RDW 23 H Plt Count 32 L MPV 9.9 Neut % (Auto) 92.1 Lymph % (Auto) 6.7 Leslie % (Auto) 0.8 Eos % (Auto) 0.1 Baso % (Auto) 0.3 Absolute Neuts (auto) 1.3 L Absolute Lymphs (auto) 0.1 L Absolute Monos (auto) 0 Absolute Eos (auto) 0 Absolute Basos (auto) 0 Absolute Nucleated RBC 0 Nucleated RBC % 0.2 Polychromasia Anisocytosis [place] Cells INR (Anticoag Therapy) APTT ABG pH ABG pCO2 ABG pO2 ABG HCO3 ABG O2 Saturation ABG Base Excess Sodium 114 L* 115 L* Potassium 4.2 Chloride 86 L Carbon Dioxide 17 L Anion Gap 11 BUN 14 Creatinine 0.38 L Est GFR ( Amer) 194.8 Est GFR (Non-Af Amer) 161.0 BUN/Creatinine Ratio 36.8 H Glucose 131 H Serum Osmolality Lactic Acid Calcium 7.5 L Magnesium Total Bilirubin 1.60 H AST 22 ALT 15 Alkaline Phosphatase 29 L Troponin I C-Reactive Protein B-Natriuretic Peptide Total Protein 5.0 L Albumin 2.8 L Globulin 2.2 Albumin/Globulin Ratio 1.3 Prealbumin TSH Influenza A (Rapid) Influenza B (Rapid) 08/25/18 15:00 WBC RBC Hgb Hct MCV MCH MCHC RDW Plt Count MPV Neut % (Auto) Lymph % (Auto) Leslie % (Auto) Eos % (Auto) Baso % (Auto) Absolute Neuts (auto) Absolute Lymphs (auto) Absolute Monos (auto) Absolute Eos (auto) Absolute Basos (auto) Absolute Nucleated RBC Nucleated RBC % Polychromasia Anisocytosis [place] Cells INR (Anticoag Therapy) APTT ABG pH ABG pCO2 ABG pO2 ABG HCO3 ABG O2 Saturation ABG Base Excess Sodium 117 L* Potassium Chloride Carbon Dioxide Anion Gap BUN Creatinine Est GFR ( Amer) Est GFR (Non-Af Amer) BUN/Creatinine Ratio Glucose Serum Osmolality Lactic Acid Calcium Magnesium Total Bilirubin AST ALT Alkaline Phosphatase Troponin I C-Reactive Protein B-Natriuretic Peptide Total Protein Albumin Globulin Albumin/Globulin Ratio Prealbumin TSH Influenza A (Rapid) Influenza B (Rapid) Imaging: cxr 08/24 - bilateral pulm congestion vs infiltrate Assessment: 83y F w/pmhx of CLL not on tx, pancytopenia, hypothyroidism, GERD, h /o polio Right lower ext; recent admission 08/12 for CAP. She resides in [place] due to progressive decline in clinical status. Presented to ER 08/25 for increasing dyspnea, productive cough, lightheadedness+. no diarrhea/blood over the past few days+. She presented with low O2 sat 91% on 2 L, tmax 99.5, tachycardic, tachypneic. CXR demonstrated bilateral lower lobe congestion vs infiltrate. She was placed on hiflow, IV abx for possible pneumonia. Overnight on hiflow, remains on it now. SHe has some tachypnea, afebrile. on 40% 30lpm hiflow. cough+ , sputum+. Developed sudden increased sob. She has baseline Right leg swelling, uses a walker otherwise. -acute hypoxic respiratory failure -Pulmonary edema vs pneumonia -Severe Hyponatremia CLL Pancytopenia h/o polio Plan: Neuro- stable. baseline Right Le weakness from polio. Delirium prec CVS- BP stable. Not tachy. CXr with pulm congestion, BNP 380+. Given picture seems more congestion that focal infiltrative process. No clear septic criteria met. Cont empiric IV abx for now. Stop Hypertonic 3% saline. Na has improved. Will start Lasix, give 40mg IV push x1. cont to check BMP q4h. -Reviewed TTE 08/25 - normal LV fxn, diastolic dysfxn noted. Resp- hypoxic, on hiflow. still has increased WOB. does not necessarily require NIV now. Repeat CXR now. IV lasix. Solumedrol IV. Bronchodilators 4h. Sputum culture to be sent. Empiric IV abx. ID- afebrile. leukopenic. CLL+. CXR with bilateral infiltrates, may be congestion>pneumonia. Empiric IV zosyn (day#1) and vanco (day#1) abx till culture returns. Resp Cx to be sent. Urine leg/strept neg. GI- regular diet. monitor for more distress, make NPO then. PPI po. Aspiration prec. Renal- Cr okay. K okay. Mild acidosis. Making urine. Hyponatremia, signs of volume overload/congestion. D/C hypertonic saline. Lasix 40mg IV x1 now. Heme- Pancytopenic, known from prior. monitoring counts. no bleeding noted. stable h/h. Endo- fingerstick prn Musculsk- pressure ulcer prophylaxis. Bedrest. Wounds- none Nutrition- reg diet DVT prophylaxis: - GI prophylaxis: ppi Central Line: no Arterial Line: no Thacker Cathetor: no Disposition: Patient requires Critical Care/ICU for hyponatremia, respiratory failure Patient Clinical Status: critical, unstable Code Status: DNI Total Critical Care time is 35 minutes, excluding procedures/teaching Alan Peña MD Interdisciplinary Professor (Electronically Signed)
[2018-08-25] MEDS ORDERED: methylPREDNISolone 125 MG* 2 ML VIAL IM ONE (14:50)
[2018-08-25] MEDS ORDERED: methylPREDNISolone 125 MG* 2 ML VIAL IV ONE (15:38)
[2018-08-25] MEDS ORDERED: Furosemide IV* 10 MG/ML 2 ML VIAL (20 MG) IV ONE ×2 (16:00)
[2018-08-25] MEDS: Vancomycin(*) 1,000 MG in NS 0.9% 250 ML* 250 ML IVPB SCH (17:39)
[2018-08-25 19:48] LABS: Calcium 7.6 mg/dL (8.6-10.3); EGFR African American 156.2 (>60); EGFR Non-African American 129.1 (>60); Potassium 4.1 mmol/L (3.5-5.0)
[2018-08-25] MEDS: methylPREDNISolone SOD 40 MG* 1 ML VIAL IV SCH (22:50)
[2018-08-26] MEDS: Levothyroxine TAB* 137 MCG TAB PO SCH (05:07)
[2018-08-26] MEDS: Vancomycin(*) 1,000 MG in NS 0.9% 250 ML* 250 ML IVPB SCH ×2 (05:11→18:14)
[2018-08-26 05:49] LABS: Hematocrit 20 % (35-47); Hemoglobin 7.3 g/dl (12.0-16.0); Mean Corpuscular HGB Conc 36 g/dl (31-36); Mean Corpuscular Hemoglobin 33 pg (27-31); Mean Corpuscular Volume 93 fL (80-97); Mean Platelet Volume 9.2 fL (7.4-10.4); Platelet Count 25 10^3/ul (150-450); Red Blood Count 2.19 10^6/ul (4.00-5.40); Red Cell Distribution Width 23 % (10.5-15); White Blood Count 1.6 10^3/ul (3.5-10.8)
[2018-08-26 06:02] LABS: BUN/Creatinine Ratio 41.9 (8-20); Calcium 7.6 mg/dL (8.6-10.3); EGFR African American 168.9 (>60); EGFR Non-African American 139.6 (>60)
[2018-08-26] MEDS: methylPREDNISolone SOD 40 MG* 1 ML VIAL IV SCH ×3 (07:20→22:31)
[2018-08-26] MEDS: ZOSYN 3.375 GM Q8H per EXTENDED INFUSION IVPB SCH ×6 (07:20→22:40)
[2018-08-26] MEDS: Albuterol/Ipratropium NEB.SOL* Albuterol 2.5 MG/Ipratropium 0.5 MG 3 ML INH PRN ×2 (08:50→14:26)
[2018-08-26] MEDS: Pantoprazole TAB * 40 MG TAB PO SCH (09:21)
[2018-08-26] MEDS: Morphine ORAL.SOLN 10 mg* 2 MG/ML UDC 5 ml PO PRN ×2 (09:21→22:50)
[2018-08-26] MEDS: Calcitonin NASAL(NF) 200 UNITS/SPRAY NASAL.SPR ALT NARE SCH (11:17)
[2018-08-26] MEDS ORDERED: Furosemide IV* 10 MG/ML 2 ML VIAL (20 MG) IV SLOW PU ONE (15:31)
--- NOTE | 2018-08-26 15:40 | PN ---
Progress Note - Progress Note Date of Service: 08/26/18 Note: Consultation Note -- Critical Care 24 hour events -no events overnight -was on hiflow; i asked and switched patient to NC this morning -mild tachypnea+ still; scattered wheeze heard -made urine overnight+ -afebrile, no sputum Tele: sinus tachy Vitals: Vital Signs Temp 97.0 F 08/26/18 08:00 Pulse 98 08/26/18 14:27 Resp 18 08/26/18 14:27 BP 127/73 08/26/18 14:01 Pulse Ox 95 08/26/18 14:27 Intake & Output 08/25/18 08/26/18 08/26/18 18:59 06:59 18:59 Intake Total 4916 516 1038 Output Total 1800 1800 3200 Balance -290 1223 -1657 Intake: IV Fluids 216 108 268 3% Sodium Chloride 136 ABX - VANCOMYCIN 72 ABX - ZOSYN 36 100 NS (0.9%) 80 168 IVPB 454 469 ABX - VANCOMYCIN 231 265 ABX - ZOSYN 223 204 Oral 840 1275 Output: Urine 1800 1800 3200 Post Void Residual 0 Other: # Bowel Movements 1 Estimated Stool Amount Small Small O2/Vent: NC 7 Infusions: heplock Current Medications: Acetaminophen (Tylenol Tab*) 650 mg PO Q4H PRN PRN Reason: FEVER/PAIN Al Hydrox/Mg Hydrox/Simethicone (Maalox Plus*) 30 ml PO Q6H PRN PRN Reason: INDIGESTION Albuterol (Ventolin 2.5 Mg/3 Ml Neb.Nani*) 2.5 mg INH Q2H PRN PRN Reason: SOB/WHEEZING Albuterol/Ipratropium (Duoneb (Albuterol 2.5 Mg/Ipratropium 0.5 Mg)) 1 neb INH Q4H PRN PRN Reason: SOB/WHEEZING Last Admin: 08/26/18 14:26 Dose: 1 neb Calcitonin [place] (Fortical(Nr)) 200 units ALT NARE DAILY [facility]; Protocol Last Admin: 08/26/18 11:17 Dose: Not Given Furosemide (Lasix Iv*) 40 mg IV SLOW PU ONCE ONE Stop: 08/26/18 15:32 Piperacillin Sod/Tazobactam (Sod 3.375 gm/ Sodium Chloride) 100 mls @ 25 mls/ hr IVPB Q8H [facility] Last Admin: 08/26/18 14:41 Dose: 25 mls/hr Vancomycin HCl 1,000 mg/ (Sodium Chloride) 250 mls @ 166.667 mls/hr IVPB Q12H [facility] Last Admin: 08/26/18 05:11 Dose: 166.667 mls/hr Levothyroxine Sodium (Synthroid Tab*) 137 mcg PO DAILY@0600 [facility] Last Admin: 08/26/18 05:07 Dose: 137 mcg Methylprednisolone Sodium Succinate (Solu-Medrol 40 Mg) 40 mg IV Q8H [facility] Last Admin: 08/26/18 07:20 Dose: 40 mg Morphine Sulfate (Morphine Oral.Soln 10 Mg*) 2 mg PO Q2H PRN PRN Reason: Pain or work of breathing Last Admin: 08/26/18 09:21 Dose: 2 mg Ondansetron HCl (Zofran Inj*) 4 mg IV Q4H PRN PRN Reason: NAUSEA/VOMITING Oxycodone/Acetaminophen (Percocet 5/325 Tab*) 1 tab PO Q4H PRN PRN Reason: PAIN Pantoprazole Sodium (Protonix Tab*) 40 mg PO DAILY [facility] Last Admin: 08/26/18 09:21 Dose: 40 mg Pharmacy Consult (Zosyn Per Pharmacy*) 1 note FOLLOW UP .ZOSYN PER PHARMACY [facility] Pharmacy Consult (Vancomycin Per Pharmacy*) 1 note FOLLOW UP . PRN PRN Reason: PER PROTOCOL Pharmacy Profile Note (Vancomycin Trough Check) 1 note FOLLOW UP 05 ONE Stop: 08/27/18 05:31 Physical Exam: General: awake, alert, mild resp distress+, no diaphoresis Head: normocephalic, atraumatic HEENT: no pallor, no icterus, moist mucous membranes Neck: soft, supple, no jvd, no stridor CVS: normal rate, regular, no murmur Resp: bilateral air entry, less basal crackles+, mild scattered wheeze, no rhonchi, no acc muscle use Abdomen: soft, nontender, nondistended, bowel sounds + Ext: pulses+, warm; Right LE edema 2+, Left lower neg; both warm Skin: intact Neuro: awake, alert, orientedx3, moving all extremities, no gross focal deficit Labs: Laboratory Results - last 24 hr 08/25/18 08/25/18 08/26/18 15:00 18:50 05:12 WBC RBC Hgb Hct MCV MCH MCHC RDW Plt Count MPV Sodium 117 L* 119 L* 120 L Potassium 4.1 4.0 Chloride 90 L 93 L Carbon Dioxide 17 L 20 L Anion Gap 12 H 7 BUN 17 18 Creatinine 0.46 L 0.43 L Est GFR ( Amer) 156.2 168.9 Est GFR (Non-Af Amer) 129.1 139.6 BUN/Creatinine Ratio 37.0 H 41.9 H Glucose 194 H 157 H Calcium 7.6 L 7.6 L 08/26/18 05:12 WBC 1.6 L RBC 2.19 L Hgb 7.3 L Hct 20 L MCV 93 MCH 33 H MCHC 36 RDW 23 H Plt Count 25 L MPV 9.2 Sodium Potassium Chloride Carbon Dioxide Anion Gap BUN Creatinine Est GFR ( Amer) Est GFR (Non-Af Amer) BUN/Creatinine Ratio Glucose Calcium Imaging: cxr 08/24 - bilateral pulm congestion vs infiltrate Assessment: 83y F w/pmhx of CLL not on tx, pancytopenia, hypothyroidism, GERD, h /o polio Right lower ext; recent admission 08/12 for CAP. She resides in [place] due to progressive decline in clinical status. Presented to ER 08/25 for increasing dyspnea, productive cough, lightheadedness+. no diarrhea/blood over the past few days+. She presented with low O2 sat 91% on 2 L, tmax 99.5, tachycardic, tachypneic. CXR demonstrated bilateral lower lobe congestion vs infiltrate. She was placed on hiflow, IV abx for possible pneumonia. Overnight on hiflow, remains on it now. SHe has some tachypnea, afebrile. on 40% 30lpm hiflow. cough+ , sputum+. Developed sudden increased sob. She has baseline Right leg swelling, uses a walker otherwise. -acute hypoxic respiratory failure -Pulmonary edema vs pneumonia -Severe Hyponatremia CLL Pancytopenia h/o polio Plan: Neuro- stable. baseline Right Le weakness from polio. Delirium prec CVS- BP stable. GOod urine output, repeat lasix 40mg IV x1. Heplock currently. Na improving. CXR with some imrpoved pulm congestion/infiltrates at bases. Cont empiric IV abx for now. -Reviewed TTE 08/25 - normal LV fxn, diastolic dysfxn noted. Resp- hypoxic, but now transitioned to PA, doing better. Hiflow on standby. CXR 2/6 with some improvement in congestion/infiltrate. Repeat IV lasix 40mg x1. Solumedrol IV, start taper tomorrow. Bronchodilators 4h. Sputum culture to be sent. Empiric IV abx. ID- afebrile. leukopenic. CLL+. CXR with bilateral infiltrates/congestion, improved slightly. Empiric IV zosyn (day#2) and vanco (day#2). Resp Cx to be sent. Urine leg/strept neg. GI- regular diet. PPI po. Aspiration prec. Renal- Cr okay. K 4.0. Improved acidosis. Good urine output s/p lasix; repeat lasix 40mg x1. Hyponatremia likely more CHF given fluid overload state, some possibility of SIADH with pneumonia. No IVF at this time. Heme- Pancytopenic, known from prior. H/h slow downtrend, keep Hg>7. Discussed with Dr Espinal, monitoring counts for now. Endo- fingerstick prn Musculsk- pressure ulcer prophylaxis. oob to chair Wounds- none Nutrition- reg diet DVT prophylaxis: - GI prophylaxis: ppi Central Line: no Arterial Line: no Thacker Cathetor: no Disposition: Patient requires Critical Care/ICU for hyponatremia, respiratory failure Patient Clinical Status: critical, stable Code Status: DNI Total Critical Care time is 35 minutes, excluding procedures/teaching Alan Peña MD Title I Teacher (Electronically Signed)
[2018-08-26] MEDS ORDERED: NS 0.9% 250 ML* 250 ML ONE (17:35)
[2018-08-26] MEDS: Albuterol/Ipratropium NEB.SOL* Albuterol 2.5 MG/Ipratropium 0.5 MG 3 ML INH SCH ×2 (19:20→23:52)
[2018-08-27] MEDS: Albuterol/Ipratropium NEB.SOL* Albuterol 2.5 MG/Ipratropium 0.5 MG 3 ML INH SCH ×4 (03:18→19:36)
[2018-08-27 05:04] LABS: Hematocrit 20 % (35-47); Hemoglobin 6.8 g/dl (12.0-16.0); Mean Corpuscular HGB Conc 35 g/dl (31-36); Mean Corpuscular Hemoglobin 33 pg (27-31); Mean Corpuscular Volume 96 fL (80-97); Mean Platelet Volume 8.9 fL (7.4-10.4); Platelet Count 21 10^3/ul (150-450); Red Blood Count 2.05 10^6/ul (4.00-5.40); Red Cell Distribution Width 23 % (10.5-15); White Blood Count 1.4 10^3/ul (3.5-10.8)
[2018-08-27 05:19] LABS: BUN/Creatinine Ratio 42.5 (8-20); Calcium 7.4 mg/dL (8.6-10.3); EGFR African American 183.6 (>60); EGFR Non-African American 151.7 (>60); Potassium 3.8 mmol/L (3.5-5.0)
[2018-08-27] MEDS ORDERED: Vancomycin Trough Check NOTE FOLLOW UP ONE (05:30)
[2018-08-27] MEDS: Levothyroxine TAB* 137 MCG TAB PO SCH (05:49)
[2018-08-27] MEDS: Vancomycin(*) 1,000 MG in NS 0.9% 250 ML* 250 ML IVPB SCH (05:55)
[2018-08-27] MEDS: methylPREDNISolone SOD 40 MG* 1 ML VIAL IV SCH ×3 (06:30→23:22)
[2018-08-27] MEDS: ZOSYN 3.375 GM Q8H per EXTENDED INFUSION IVPB SCH ×6 (06:35→23:19)
[2018-08-27] MEDS: Pantoprazole TAB * 40 MG TAB PO SCH (09:12)
[2018-08-27] MEDS: Calcitonin NASAL(NF) 200 UNITS/SPRAY NASAL.SPR ALT NARE SCH (09:12)
--- NOTE | 2018-08-27 09:57 | PN ---
Progress Note - Progress Note Date of Service: 08/27/18 Note: Progress Note -- Critical Care 24 hour events -no events overnight; on NC 5 L -cough+, minimal sputum+ -afebrile -BP stable, HR stable -no complaints by pateint, eating well Tele: NSR Vitals: Vital Signs Temp 97.3 F 08/27/18 03:58 Pulse 75 08/27/18 07:45 Resp 16 08/27/18 07:50 BP 131/70 08/27/18 07:45 Pulse Ox 99 08/27/18 07:45 Intake & Output 08/26/18 08/27/18 08/27/18 18:59 06:59 18:59 Intake Total 1543 1391.2 Output Total 3200 1100 Balance -1657 291.2 Weight 65.8 kg Intake: IV Fluids 268 681.2 ABX - VANCOMYCIN 298 ABX - ZOSYN 100 214.2 NS (0.9%) 168 169 Oral 1275 710 Output: Urine 3200 1100 Other: Date of Last Bowel 08/26/18 Movement # Bowel Movements 1 Estimated Stool Amount Small Small # Voids 1 O2/Vent: NC 5 Infusions: heplock Current Medications: Acetaminophen (Tylenol Tab*) 650 mg PO Q4H PRN PRN Reason: FEVER/PAIN Al Hydrox/Mg Hydrox/Simethicone (Maalox Plus*) 30 ml PO Q6H PRN PRN Reason: INDIGESTION Albuterol (Ventolin 2.5 Mg/3 Ml Neb.Nani*) 2.5 mg INH Q2H PRN PRN Reason: SOB/WHEEZING Albuterol/Ipratropium (Duoneb (Albuterol 2.5 Mg/Ipratropium 0.5 Mg)) 1 neb INH [id number] AWAKE [facility] Last Admin: 08/27/18 07:39 Dose: 1 neb Calcitonin [place] (Fortical(Nr)) 200 units ALT NARE DAILY [facility]; Protocol Last Admin: 08/27/18 09:12 Dose: Not Given Furosemide (Lasix Iv*) 20 mg IV ONCE ONE Stop: 08/27/18 10:00 Piperacillin Sod/Tazobactam (Sod 3.375 gm/ Sodium Chloride) 100 mls @ 25 mls/ hr IVPB Q8H [facility] Last Admin: 08/27/18 06:35 Dose: 25 mls/hr Vancomycin HCl 1,000 mg/ (Sodium Chloride) 250 mls @ 166.667 mls/hr IVPB Q12H [facility] Last Admin: 08/27/18 05:55 Dose: 166.667 mls/hr Levothyroxine Sodium (Synthroid Tab*) 137 mcg PO DAILY@0600 [facility] Last Admin: 08/27/18 05:49 Dose: 137 mcg Methylprednisolone Sodium Succinate (Solu-Medrol 40 Mg) 40 mg IV Q8H [facility] Last Admin: 08/27/18 06:30 Dose: 40 mg Morphine Sulfate (Morphine Oral.Soln 10 Mg*) 2 mg PO Q2H PRN PRN Reason: Pain or work of breathing Last Admin: 08/26/18 22:50 Dose: 2 mg Ondansetron HCl (Zofran Inj*) 4 mg IV Q4H PRN PRN Reason: NAUSEA/VOMITING Oxycodone/Acetaminophen (Percocet 5/325 Tab*) 1 tab PO Q4H PRN PRN Reason: PAIN Pantoprazole Sodium (Protonix Tab*) 40 mg PO DAILY [facility] Last Admin: 08/27/18 09:12 Dose: 40 mg Pharmacy Consult (Zosyn Per Pharmacy*) 1 note FOLLOW UP .ZOSYN PER PHARMACY [facility] Pharmacy Consult (Vancomycin Per Pharmacy*) 1 note FOLLOW UP . PRN PRN Reason: PER PROTOCOL Pharmacy Profile Note (Vancomycin Trough Check) 1 note FOLLOW UP ONCE ONE Stop: 08/30/18 05:31 Physical Exam: General: awake, alert, no resp distress, no diaphoresis Head: normocephalic, atraumatic HEENT: no pallor, no icterus, moist mucous membranes Neck: soft, supple, no jvd, no stridor CVS: normal rate, regular, no murmur Resp: bilateral air entry, mild basal rhonchi only, no rhales/wheeze, no acc muscle use Abdomen: soft, nontender, nondistended, bowel sounds + Ext: pulses+, warm; Right LE edema 2+, Left lower neg; both warm Skin: intact Neuro: awake, alert, orientedx3, moving all extremities, no gross focal deficit Labs: Laboratory Results - last 24 hr 08/27/18 08/27/18 04:40 04:40 WBC 1.4 L RBC 2.05 L Hgb 6.8 L Hct 20 L MCV 96 MCH 33 H MCHC 35 RDW 23 H Plt Count 21 L MPV 8.9 Sodium 127 L Potassium 3.8 Chloride 99 L Carbon Dioxide 21 L Anion Gap 7 BUN 17 Creatinine 0.40 L Est GFR ( Amer) 183.6 Est GFR (Non-Af Amer) 151.7 BUN/Creatinine Ratio 42.5 H Glucose 161 H Calcium 7.4 L Vancomycin Trough 16.0 Imaging: cxr 08/24 - bilateral pulm congestion vs infiltrate Assessment: 83y F w/pmhx of CLL not on tx, pancytopenia, hypothyroidism, GERD, h /o polio Right lower ext; recent admission 08/12 for CAP. She resides in [place] due to progressive decline in clinical status. Presented to ER 08/25 for increasing dyspnea, productive cough, lightheadedness+. no diarrhea/blood over the past few days+. She presented with low O2 sat 91% on 2 L, tmax 99.5, tachycardic, tachypneic. CXR demonstrated bilateral lower lobe congestion vs infiltrate. She was placed on hiflow, IV abx for possible pneumonia. Overnight on hiflow, remains on it now. SHe has some tachypnea, afebrile. on 40% 30lpm hiflow. cough+ , sputum+. Developed sudden increased sob. She has baseline Right leg swelling, uses a walker otherwise. -acute hypoxic respiratory failure -Pulmonary edema vs pneumonia -Severe Hyponatremia CLL Pancytopenia h/o polio Plan: Neuro- stable. baseline Right Le weakness from polio. Delirium prec -oob to chair, pt/ot CVS- BP stable. GOod urine output, s/p lasix. Hg <7, h/o monthly transfusion or as needed to keep hg>7. PRBC x1 to be tranfused today. Repeat Lasix 20mg IV x1 today after transfusion. Na improving. CXR with some imrpoved pulm congestion/ infiltrates at bases. Cont empiric IV abx for now. -Reviewed TTE 08/25 - normal LV fxn, diastolic dysfxn noted. Resp- hypoxia improving, on 5 L NC. Pulm congestion vs pneumonia. Cont Diuresis daily. Cont IV abx. CXR 08/26 with some improvement in congestion/infiltrate. Taper Solumedrol IV. Bronchodilators 4h. No sputum culture, not much coughed up. Empiric IV abx. ID- afebrile. leukopenic. CLL+. CXR with bilateral infiltrates/congestion, improved slightly. Empiric IV zosyn (day#3/5). D/C vanco today (day#2). Urine leg/strept neg. Improving. WIll plan to limit IV abx to 5 days total. GI- regular diet. PPI po. Aspiration prec. Renal- Cr okay. K 3.8, Replete PO KCL. Good urine output s/p lasix; repeat lasix 20mg x1. Hyponatremia improving, likely from hypervolemic hyponat Heme- Pancytopenic, known from prior. H/h slow downtrend, now 6.8, transfuse [address] Espinal, monitoring counts for now. Endo- fingerstick prn Musculsk- pressure ulcer prophylaxis. oob to chair Wounds- none Nutrition- reg diet DVT prophylaxis: - GI prophylaxis: ppi Central Line: no Arterial Line: no Thacker Cathetor: no Disposition: stable for transfer to medical floor Patient Clinical Status: stable Code Status: DNI Alan Peña MD Instrument Installer (Electronically Signed)
[2018-08-27] MEDS ORDERED: Furosemide IV* 10 MG/ML 2 ML VIAL (20 MG) IV ONE (14:00)
[2018-08-28] MEDS: Albuterol/Ipratropium NEB.SOL* Albuterol 2.5 MG/Ipratropium 0.5 MG 3 ML INH SCH (01:08)
[2018-08-28] MEDS: ZOSYN 3.375 GM Q8H per EXTENDED INFUSION IVPB SCH ×6 (05:44→22:13)
[2018-08-28] MEDS: Levothyroxine TAB* 137 MCG TAB PO SCH (05:45)
[2018-08-28 06:49] LABS: Hematocrit 24 % (35-47); Hemoglobin 8.4 g/dl (12.0-16.0); Mean Corpuscular HGB Conc 34 g/dl (31-36); Mean Corpuscular Hemoglobin 33 pg (27-31); Mean Corpuscular Volume 96 fL (80-97); Mean Platelet Volume 8.7 fL (7.4-10.4); Red Blood Count 2.55 10^6/ul (4.00-5.40); Red Cell Distribution Width 22 % (10.5-15); White Blood Count 1.6 10^3/ul (3.5-10.8)
[2018-08-28 06:50] LABS: Platelet Count 19 10^3/ul (150-450)
[2018-08-28 07:06] LABS: BUN/Creatinine Ratio 40.9 (8-20); Calcium 7.7 mg/dL (8.6-10.3); EGFR African American 164.4 (>60); EGFR Non-African American 135.9 (>60); Potassium 4.1 mmol/L (3.5-5.0)
[2018-08-28] MEDS: methylPREDNISolone SOD 40 MG* 1 ML VIAL IV SCH (07:12)
[2018-08-28] MEDS: Pantoprazole TAB * 40 MG TAB PO SCH (09:03)
[2018-08-28] MEDS: Calcitonin NASAL(NF) 200 UNITS/SPRAY NASAL.SPR ALT NARE SCH (09:03)
[2018-08-28] MEDS: guaiFENesin LIQ* 100 MG/5 ML UDC PO SCH ×4 (09:03→20:15)
[2018-08-28] MEDS ORDERED: predniSONE TAB* 20 MG PO ONE (13:57)
--- NOTE | 2018-08-28 14:06 | PN ---
Subjective Date of Service: 08/28/18 Interval History: Less SOB, less cough. Appetite fair. Objective Active Medications: Acetaminophen (Tylenol Tab*) 650 mg PO Q4H PRN PRN Reason: FEVER/PAIN Al Hydrox/Mg Hydrox/Simethicone (Maalox Plus*) 30 ml PO Q6H PRN PRN Reason: INDIGESTION Albuterol (Ventolin 2.5 Mg/3 Ml Neb.Nani*) 2.5 mg INH Q2H PRN PRN Reason: SOB/WHEEZING Albuterol/Ipratropium (Duoneb (Albuterol 2.5 Mg/Ipratropium 0.5 Mg)) 1 neb INH [id number] AWAKE PRN PRN Reason: SOB/WHEEZING Calcitonin [place] (Fortical(Nr)) 200 units ALT NARE DAILY [facility]; Protocol Last Admin: 08/28/18 09:03 Dose: Not Given Guaifenesin (Robitussin*) 10 ml PO QID [facility] Last Admin: 08/28/18 13:07 Dose: 10 ml Piperacillin Sod/Tazobactam (Sod 3.375 gm/ Sodium Chloride) 100 mls @ 25 mls/ hr IVPB Q8H [facility] Last Admin: 08/28/18 05:44 Dose: 25 mls/hr Levothyroxine Sodium (Synthroid Tab*) 137 mcg PO DAILY@0600 [facility] Last Admin: 08/28/18 05:45 Dose: 137 mcg Morphine Sulfate (Morphine Oral.Soln 10 Mg*) 2 mg PO Q2H PRN PRN Reason: Pain or work of breathing Last Admin: 08/26/18 22:50 Dose: 2 mg Ondansetron HCl (Zofran Inj*) 4 mg IV Q4H PRN PRN Reason: NAUSEA/VOMITING Oxycodone/Acetaminophen (Percocet 5/325 Tab*) 1 tab PO Q4H PRN PRN Reason: PAIN Pantoprazole Sodium (Protonix Tab*) 40 mg PO DAILY [facility] Last Admin: 08/28/18 09:03 Dose: 40 mg Pharmacy Consult (Zosyn Per Pharmacy*) 1 note FOLLOW UP .ZOSYN PER PHARMACY [facility] Prednisone (Deltasone Tab*) 40 mg PO ONCE ONE Stop: 08/28/18 13:58 Prednisone (Deltasone Tab*) 60 mg PO DAILY [facility] Vital Signs - 8 hr 08/28/18 08/28/18 08/28/18 07:26 07:31 11:53 Temperature 97.2 F 98.5 F Pulse Rate 71 79 Respiratory 18 24 20 Rate Blood Pressure 122/72 125/63 (mmHg) O2 Sat by Pulse 99 99 Oximetry Oxygen Devices in Use Now: Nasal Cannula Appearance: Alert, in a chair. Tachypneic at rest, otherwise looks comfortable. Neck: NL Appearance and Movements; NL JVP, No Thyroid Enlargement, Masses Respiratory: Symmetrical Chest Expansion and Respiratory Effort, Clear to Percussion, - - Tachypneic, mild to mod wheezing BL, needs 2-3 breaths per sentence. Extremities: No Edema, No Clubbing, Cyanosis, - Skin: No Rash or Ulcers, No Nodules or Sclerosis, - Neurological: Alert and Oriented x 3, NL Sensation Result Diagrams: 08/28/18 06:21 08/28/18 06:21 Microbiology and Other Data: Microbiology 08/24/18 22:39 Aerobic Blood Culture - Preliminary Blood Venous No Growth Day 3 Anaerobic Blood Culture - Preliminary No Growth Day 3 08/24/18 22:31 Aerobic Blood Culture - Preliminary Blood Venous No Growth Day 3 Anaerobic Blood Culture - Preliminary No Growth Day 3 08/26/18 20:10 Gram Stain - Final Sputum Expectorated 08/25/18 06:24 Legionella Urinary Antigen - Final Urine Negative Legionella Antigen Streptococcus pneumoniae Ag Screen - Final Negative S. pneumo Antigen 08/25/18 01:58 Nasal Screen MRSA (PCR) - Final Nasal Mrsa Not Detected 08/25/18 01:58 Influenza Types A,B Antigen - Final Nasal Specimen received for Influenza A/B Molecular testing Assess/Plan/Problems-Billing Assessment: - Patient Problems (1) Hypoxia Current Visit: Yes Status: Acute Code(s): R09.02 - HYPOXEMIA SNOMED Code(s ): 790432242 Comment: Treated for both pmonary edema and pneumonia. IV furosemide completed. Start prednsione taper 08/29. Continue pip/fabiano for now. (2) Hx of chronic lymphocytic leukemia Current Visit: No Status: Acute Code(s): Z85.6 - PERSONAL HISTORY OF LEUKEMIA SNOMED Code(s): 81422081073635 Comment: Stable pancytopenia. Repeat CBC 08/31. (3) Hyponatremia Current Visit: No Status: Acute Code(s): E87.1 - HYPO-OSMOLALITY AND HYPONATREMIA SNOMED Code(s): 57115757 Comment: Improved. BMP 08/31. (4) History of poliomyelitis Current Visit: No Status: Acute Code(s): Z86.12 - PERSONAL HISTORY OF POLIOMYELITIS SNOMED Code(s): 128161959 Comment: Since age 1. R leg very weak. (5) Hypothyroidism Current Visit: No Status: Acute Code(s): E03.9 - HYPOTHYROIDISM, UNSPECIFIED SNOMED Code(s): 86616865 Comment: continue levothyroxine 137 mcg daily. TS 2.99 on 08/24/18.
[2018-08-28] MEDS: CMC:Calcitonin NASAL(NF) 200 UNITS/SPRAY NASAL.SPR ALT NARE SCH (17:41)
[2018-08-28] MEDS: Albuterol/Ipratropium NEB.SOL* Albuterol 2.5 MG/Ipratropium 0.5 MG 3 ML INH PRN (22:38)
[2018-08-29] MEDS: ZOSYN 3.375 GM Q8H per EXTENDED INFUSION IVPB SCH ×6 (05:54→22:18)
[2018-08-29] MEDS: Levothyroxine TAB* 137 MCG TAB PO SCH (05:54)
[2018-08-29] MEDS: predniSONE TAB* 20 MG PO SCH (08:23)
[2018-08-29] MEDS: Pantoprazole TAB * 40 MG TAB PO SCH (08:23)
[2018-08-29] MEDS: guaiFENesin LIQ* 100 MG/5 ML UDC PO SCH ×4 (08:25→20:55)
[2018-08-29] MEDS: CMC:Calcitonin NASAL(NF) 200 UNITS/SPRAY NASAL.SPR ALT NARE SCH (08:27)
--- NOTE | 2018-08-29 14:44 | PN ---
Subjective Date of Service: 08/29/18 Interval History: Pt seen and examined. Meds and labs reviewed. CC: Improved SOB ROS: Denied PETERS/dizziness, F/C, N/V, CP, increased cough, sputum production, abd pain, diarrhea, constipation, dysuria, myalgias, arthralgias, throat pain, and new skin lesions. The rest of the 14 point ROS are unremarkable. PHYSICAL EXAM: GEN APPEARANCE: Awake, not in acute distress, obese HEENT: NC/AT, PERRLA, moist oral mucosa, (-) throat erythema NECK: Soft, supple, (-) cervical LAD HEART: S1S2 WNL, RRR, No MRG CHEST: GAE, No R/R, (+)Wheezing ABD: Soft, ND/NT, NABS 4x Q EXT: No C/C/E SKIN: Warm to touch; 2 dime size open areas of R. buttock PSYCH: No active psychosis, hallucinations, depression, SI/HI Objective Active Medications: Acetaminophen (Tylenol Tab*) 650 mg PO Q4H PRN PRN Reason: FEVER/PAIN Al Hydrox/Mg Hydrox/Simethicone (Maalox Plus*) 30 ml PO Q6H PRN PRN Reason: INDIGESTION Albuterol (Ventolin 2.5 Mg/3 Ml Neb.Nani*) 2.5 mg INH Q2H PRN PRN Reason: SOB/WHEEZING Albuterol/Ipratropium (Duoneb (Albuterol 2.5 Mg/Ipratropium 0.5 Mg)) 1 neb INH [id number] AWAKE PRN PRN Reason: SOB/WHEEZING Last Admin: 08/28/18 22:38 Dose: 1 neb Calcitonin [place] (Fortical(Nr)) 200 units ALT NARE DAILY [facility]; Protocol Last Admin: 08/29/18 08:27 Dose: 200 units Guaifenesin (Robitussin*) 10 ml PO QID [facility] Last Admin: 08/29/18 13:52 Dose: 10 ml Heparin Sodium (Porcine) (Heparin Vial(*)) 5,000 units SUBCUT Q12HR [facility] Piperacillin Sod/Tazobactam (Sod 3.375 gm/ Sodium Chloride) 100 mls @ 25 mls/ hr IVPB Q8H [facility] Last Admin: 08/29/18 13:52 Dose: 25 mls/hr Levothyroxine Sodium (Synthroid Tab*) 137 mcg PO DAILY@0600 [facility] Last Admin: 08/29/18 05:54 Dose: 137 mcg Morphine Sulfate (Morphine Oral.Soln 10 Mg*) 2 mg PO Q2H PRN PRN Reason: Pain or work of breathing Last Admin: 08/26/18 22:50 Dose: 2 mg Ondansetron HCl (Zofran Inj*) 4 mg IV Q4H PRN PRN Reason: NAUSEA/VOMITING Oxycodone/Acetaminophen (Percocet 5/325 Tab*) 1 tab PO Q4H PRN PRN Reason: PAIN Pantoprazole Sodium (Protonix Tab*) 40 mg PO DAILY [facility] Last Admin: 08/29/18 08:23 Dose: 40 mg Pharmacy Consult (Zosyn Per Pharmacy*) 1 note FOLLOW UP .ZOSYN PER PHARMACY [facility] Prednisone (Deltasone Tab*) 60 mg PO DAILY [facility] Last Admin: 08/29/18 08:23 Dose: 60 mg Vital Signs - 8 hr 08/29/18 08/29/18 08/29/18 07:13 08:43 11:23 Temperature 97.6 F 97.8 F Pulse Rate 70 75 Respiratory 24 24 28 Rate Blood Pressure 123/62 119/62 (mmHg) O2 Sat by Pulse 98 98 Oximetry Oxygen Devices in Use Now: High Flow Nasal Cannula Result Diagrams: 08/28/18 06:21 08/28/18 06:21 Microbiology and Other Data: Microbiology 08/24/18 22:39 Aerobic Blood Culture - Preliminary Blood Venous No Growth Day 3 Anaerobic Blood Culture - Preliminary No Growth Day 3 08/24/18 22:31 Aerobic Blood Culture - Preliminary Blood Venous No Growth Day 3 Anaerobic Blood Culture - Preliminary No Growth Day 3 08/26/18 20:10 Gram Stain - Final Sputum Expectorated 08/25/18 06:24 Legionella Urinary Antigen - Final Urine Negative Legionella Antigen Streptococcus pneumoniae Ag Screen - Final Negative S. pneumo Antigen 08/25/18 01:58 Nasal Screen MRSA (PCR) - Final Nasal Mrsa Not Detected 08/25/18 01:58 Influenza Types A,B Antigen - Final Nasal Specimen received for Influenza A/B Molecular testing Assess/Plan/Problems-Billing Assessment: - Patient Problems (1) Hypoxia Current Visit: Yes Status: Acute Code(s): R09.02 - HYPOXEMIA SNOMED Code(s ): 798124897 Comment: -Thought to be due to both fluid overload and PNA -Mentions she is not on O2 at home -Continue Zosyn and Prednisone and currently not on diuretics -Will repeat CXR in AM -Repeat BNP in AM -Continue nebs (2) Buttock wound Current Visit: Yes Status: Acute Code(s): S31.809A - UNSPECIFIED OPEN WOUND OF UNSPECIFIED BUTTOCK, INIT ENCNTR SNOMED Code(s): 11337428 Comment: -Continue local wound care -Wound-care consult pending (3) CLL (chronic lymphocytic leukemia) Current Visit: Yes Status: Acute Code(s): C91.90 - LYMPHOID LEUKEMIA, UNSPECIFIED NOT HAVING ACHIEVED REMISSION SNOMED Code(s): 76242636 Comment: -Stable -Defer w/Oncologist F/U as outpt (4) Hyponatremia Current Visit: No Status: Acute Code(s): E87.1 - HYPO-OSMOLALITY AND HYPONATREMIA SNOMED Code(s): 88643036 Comment: -Continues to improve (5) History of poliomyelitis Current Visit: No Status: Acute Code(s): Z86.12 - PERSONAL HISTORY OF POLIOMYELITIS SNOMED Code(s): 744140978 Comment: -R. leg weakness (6) Hypothyroidism Current Visit: No Status: Acute Code(s): E03.9 - HYPOTHYROIDISM, UNSPECIFIED SNOMED Code(s): 15546015 Comment: -Continue Levothyroxine -TSH WNL (7) DVT prophylaxis Current Visit: Yes Status: Acute Code(s): BUM6411 - SNOMED Code(s): 263319645 Comment: -Continue SCDs -Unclear why pt not on pharmacologic proph, thus will place pt on Heparin q12H Status and Disposition: -As above -For PT eval
[2018-08-29] MEDS: Heparin VIAL(*) 5000 UNITS/ML VIAL (FIVE THOUSAND) SUBCUT SCH (20:56)
[2018-08-30] MEDS ORDERED: Vancomycin Trough Check NOTE FOLLOW UP ONE (05:30)
[2018-08-30] MEDS: ZOSYN 3.375 GM Q8H per EXTENDED INFUSION IVPB SCH ×6 (05:44→22:09)
[2018-08-30] MEDS: Levothyroxine TAB* 137 MCG TAB PO SCH (05:45)
[2018-08-30 06:50] LABS: Hematocrit 26 % (35-47); Hemoglobin 8.8 g/dl (12.0-16.0); Mean Corpuscular HGB Conc 34 g/dl (31-36); Mean Corpuscular Hemoglobin 33 pg (27-31); Mean Corpuscular Volume 96 fL (80-97); Mean Platelet Volume 8.9 fL (7.4-10.4); Platelet Count 18 10^3/ul (150-450); Red Blood Count 2.68 10^6/ul (4.00-5.40); Red Cell Distribution Width 22 % (10.5-15); White Blood Count 1.9 10^3/ul (3.5-10.8)
[2018-08-30 06:52] LABS: Albumin 2.8 g/dL (3.2-5.2); Albumin/Globulin Ratio 1.6 (1-3); BUN/Creatinine Ratio 42.1 (8-20); EGFR African American 194.8 (>60); Globulin 1.8 g/dL (2-4); Phosphorus 2.3 mg/dL (2.5-5.0); Potassium 3.9 mmol/L (3.5-5.0); Total Protein 4.6 g/dL (6.4-8.9)
[2018-08-30] MEDS: Heparin VIAL(*) 5000 UNITS/ML VIAL (FIVE THOUSAND) SUBCUT SCH (09:16)
[2018-08-30] MEDS ORDERED: Sodium Phosphate INJ* 10 MMOLE in NS 0.9% 250 ML* 250 ML IVPB ONE (09:30)
[2018-08-30] MEDS: Albuterol/Ipratropium NEB.SOL* Albuterol 2.5 MG/Ipratropium 0.5 MG 3 ML INH PRN ×2 (09:43→13:26)
[2018-08-30] MEDS: CMC:Calcitonin NASAL(NF) 200 UNITS/SPRAY NASAL.SPR ALT NARE SCH (10:14)
[2018-08-30] MEDS: guaiFENesin LIQ* 100 MG/5 ML UDC PO SCH ×4 (10:14→21:11)
[2018-08-30] MEDS: predniSONE TAB* 20 MG PO SCH (10:14)
[2018-08-30] MEDS: Pantoprazole TAB * 40 MG TAB PO SCH (10:15)
[2018-08-30] MEDS: Furosemide IV* 10 MG/ML VIAL (40 MG) IV SCH ×2 (11:48→21:11)
[2018-08-30] MEDS: Morphine ORAL.SOLN 10 mg* 2 MG/ML UDC 5 ml PO PRN ×4 (11:49→21:10)
--- NOTE | 2018-08-30 14:06 | PN ---
Subjective Date of Service: 08/30/18 Interval History: Pt seen and examined. Meds and labs reviewed. CC: N/A ROS: Mentions shes ok despite the fact she appears to have increased WOB. Pt maybe downplaying her symptoms PHYSICAL EXAM: GEN APPEARANCE: Awake, appears to have increased WOB, tachypnic, on 5L NC HEENT: NC/AT, PERRLA, moist oral mucosa, (-) throat erythema NECK: Soft, supple, (-) cervical LAD, (+)JVD, (+)HJR HEART: S1S2 WNL, RRR, No MRG CHEST: (+)Wheezing and ronchi, GAE ABD: Soft, ND/NT, NABS 4x Q EXT: No C/C/E SKIN: Warm to touch PSYCH: No active psychosis, hallucinations, depression, SI/HI Objective Active Medications: Acetaminophen (Tylenol Tab*) 650 mg PO Q4H PRN PRN Reason: FEVER/PAIN Al Hydrox/Mg Hydrox/Simethicone (Maalox Plus*) 30 ml PO Q6H PRN PRN Reason: INDIGESTION Albuterol (Ventolin 2.5 Mg/3 Ml Neb.Nani*) 2.5 mg INH Q2H PRN PRN Reason: SOB/WHEEZING Albuterol/Ipratropium (Duoneb (Albuterol 2.5 Mg/Ipratropium 0.5 Mg)) 1 neb INH [id number] AWAKE PRN PRN Reason: SOB/WHEEZING Last Admin: 08/30/18 13:26 Dose: 1 neb Calcitonin [place] (Fortical(Nr)) 200 units ALT NARE DAILY [facility]; Protocol Last Admin: 08/30/18 10:14 Dose: 200 units Furosemide (Lasix Iv*) 40 mg IV BID [facility] Last Admin: 08/30/18 11:48 Dose: 40 mg Guaifenesin (Robitussin*) 10 ml PO QID [facility] Last Admin: 08/30/18 10:14 Dose: 10 ml Piperacillin Sod/Tazobactam (Sod 3.375 gm/ Sodium Chloride) 100 mls @ 25 mls/ hr IVPB Q8H [facility] Last Admin: 08/30/18 05:44 Dose: 25 mls/hr Sodium Phosphate 10 mmole/ (Sodium Chloride) 253.3333 mls @ 42 mls/hr IVPB ONCE ONE Stop: 08/30/18 15:31 Last Admin: 08/30/18 10:14 Dose: 42 mls/hr Doxycycline Hyclate 100 mg/ (Sodium Chloride) 250 mls @ 250 mls/hr IVPB Q12H [facility] Stop: 09/04/18 14:29 Levothyroxine Sodium (Synthroid Tab*) 137 mcg PO DAILY@0600 [facility] Last Admin: 08/30/18 05:45 Dose: 137 mcg Metolazone (Zaroxolyn Tab*) 5 mg PO DAILY@0830 [facility] Morphine Sulfate (Morphine Oral.Soln 10 Mg*) 2 mg PO Q2H PRN PRN Reason: Pain or work of breathing Last Admin: 08/30/18 11:49 Dose: 2 mg Ondansetron HCl (Zofran Inj*) 4 mg IV Q4H PRN PRN Reason: NAUSEA/VOMITING Oxycodone/Acetaminophen (Percocet 5/325 Tab*) 1 tab PO Q4H PRN PRN Reason: PAIN Pantoprazole Sodium (Protonix Tab*) 40 mg PO DAILY [facility] Last Admin: 08/30/18 10:15 Dose: 40 mg Prednisone (Deltasone Tab*) 50 mg PO DAILY [facility] Vital Signs - 8 hr 08/30/18 08/30/18 08/30/18 07:38 08:00 09:45 Temperature 97.7 F Pulse Rate 74 70 Respiratory 26 30 30 Rate Blood Pressure 135/62 (mmHg) O2 Sat by Pulse 97 Oximetry 08/30/18 08/30/18 08/30/18 10:47 11:49 13:28 Temperature 98.4 F Pulse Rate 84 92 Respiratory 30 30 30 Rate Blood Pressure 138/67 (mmHg) O2 Sat by Pulse 95 Oximetry Oxygen Devices in Use Now: Nasal Cannula Result Diagrams: 08/30/18 05:55 08/30/18 05:55 Microbiology and Other Data: Microbiology 08/24/18 22:39 Aerobic Blood Culture - Preliminary Blood Venous No Growth Day 3 Anaerobic Blood Culture - Preliminary No Growth Day 3 08/24/18 22:31 Aerobic Blood Culture - Preliminary Blood Venous No Growth Day 3 Anaerobic Blood Culture - Preliminary No Growth Day 3 08/26/18 20:10 Gram Stain - Final Sputum Expectorated 08/25/18 06:24 Legionella Urinary Antigen - Final Urine Negative Legionella Antigen Streptococcus pneumoniae Ag Screen - Final Negative S. pneumo Antigen 08/25/18 01:58 Nasal Screen MRSA (PCR) - Final Nasal Mrsa Not Detected 08/25/18 01:58 Influenza Types A,B Antigen - Final Nasal Specimen received for Influenza A/B Molecular testing Assess/Plan/Problems-Billing Assessment: - Patient Problems (1) Diastolic CHF Current Visit: Yes Status: Acute Code(s): I50.30 - UNSPECIFIED DIASTOLIC ( CONGESTIVE) HEART FAILURE SNOMED Code(s): 952063496 Comment: -Pts clinical picture consistent with diastolic CHF as initially suspected ( along HCAP) -2D echo (08/25/18): No wall motion abnormalities, mild MR and TR, EF =50-55% -Will place on IV Lasix BID and Metolazone (2) HCAP (healthcare-associated pneumonia) Current Visit: Yes Status: Acute Code(s): J18.9 - PNEUMONIA, UNSPECIFIED ORGANISM SNOMED Code(s): 347491918 Comment: -Cultures had been negative -On day #5/10 of Zosyn -Given above data, will D/C Zosyn and place pt on Doxycycline for 5 more days to complete 10 day treatment therapy (3) Buttock wound Current Visit: Yes Status: Acute Code(s): S31.809A - UNSPECIFIED OPEN WOUND OF UNSPECIFIED BUTTOCK, INIT ENCNTR SNOMED Code(s): 31697105 Comment: -Continue local wound care -Wound-care consult pending (4) CLL (chronic lymphocytic leukemia) Current Visit: Yes Status: Acute Code(s): C91.90 - LYMPHOID LEUKEMIA, UNSPECIFIED NOT HAVING ACHIEVED REMISSION SNOMED Code(s): 59383063 Comment: -Stable -Likely cause of pancytopenia -Defer w/Oncologist F/U as outpt (5) Hyponatremia Current Visit: No Status: Acute Code(s): E87.1 - HYPO-OSMOLALITY AND HYPONATREMIA SNOMED Code(s): 54428102 Comment: #Hypervolemic hyponatremia -Continues to improve -Placed on diuretics as described (6) History of poliomyelitis Current Visit: No Status: Acute Code(s): Z86.12 - PERSONAL HISTORY OF POLIOMYELITIS SNOMED Code(s): 381139201 Comment: -R. leg weakness (7) Hypothyroidism Current Visit: No Status: Acute Code(s): E03.9 - HYPOTHYROIDISM, UNSPECIFIED SNOMED Code(s): 43975377 Comment: -Continue Levothyroxine -TSH WNL (8) DVT prophylaxis Current Visit: Yes Status: Acute Code(s): HQB9698 - SNOMED Code(s): 537420768 Comment: -Continue SCDs -D/Cd Heparin as previous described due to severe thrombocytopenia likely due to pancytopenia due to CLL Status and Disposition: -As above -Awaiting PT eval
[2018-08-30] MEDS: Metolazone TAB* 5 MG PO SCH (14:12)
[2018-08-30] MEDS: DOXYcycline IV* 100 MG in NS 0.9% 250 ML* 250 ML IVPB SCH (15:17)
[2018-08-31] MEDS: Morphine ORAL.SOLN 10 mg* 2 MG/ML UDC 5 ml PO PRN ×3 (00:10→10:19)
[2018-08-31] MEDS: DOXYcycline IV* 100 MG in NS 0.9% 250 ML* 250 ML IVPB SCH ×2 (02:22→15:07)
[2018-08-31] MEDS: Levothyroxine TAB* 137 MCG TAB PO SCH (05:10)
[2018-08-31] MEDS: ZOSYN 3.375 GM Q8H per EXTENDED INFUSION IVPB SCH ×6 (06:09→23:04)
[2018-08-31 07:00] LABS: Hematocrit 26 % (35-47); Hemoglobin 9.1 g/dl (12.0-16.0); Mean Corpuscular HGB Conc 35 g/dl (31-36); Mean Corpuscular Hemoglobin 33 pg (27-31); Mean Corpuscular Volume 96 fL (80-97); Mean Platelet Volume 8.8 fL (7.4-10.4); Platelet Count 18 10^3/ul (150-450); Red Blood Count 2.73 10^6/ul (4.00-5.40); Red Cell Distribution Width 23 % (10.5-15); White Blood Count 1.7 10^3/ul (3.5-10.8)
[2018-08-31 07:08] LABS: Albumin 3.1 g/dL (3.2-5.2); Albumin/Globulin Ratio 1.6 (1-3); BUN/Creatinine Ratio 28.8 (8-20); Calcium 8.4 mg/dL (8.6-10.3); EGFR African American 135.6 (>60); EGFR Non-African American 112.1 (>60); Magnesium 1.8 mg/dL (1.9-2.7); Phosphorus 3.7 mg/dL (2.5-5.0); Potassium 3.3 mmol/L (3.5-5.0); Total Bilirubin 1.1 mg/dL (0.2-1.0); Total Protein 5.1 g/dL (6.4-8.9)
[2018-08-31] MEDS: Metolazone TAB* 5 MG PO SCH (07:39)
[2018-08-31] MEDS ORDERED: Magnesium Sulfate 2 GM IV* 2 GM/50 ML BAG IVPB ONE (09:53)
[2018-08-31] MEDS: Furosemide IV* 10 MG/ML VIAL (40 MG) IV SCH ×2 (10:20→21:05)
[2018-08-31] MEDS: predniSONE TAB* 50 MG PO SCH (10:21)
[2018-08-31] MEDS: guaiFENesin LIQ* 100 MG/5 ML UDC PO SCH ×4 (10:21→21:05)
[2018-08-31] MEDS: CMC:Calcitonin NASAL(NF) 200 UNITS/SPRAY NASAL.SPR ALT NARE SCH (10:21)
[2018-08-31] MEDS: Pantoprazole TAB * 40 MG TAB PO SCH (10:21)
[2018-08-31] MEDS: Albuterol/Ipratropium NEB.SOL* Albuterol 2.5 MG/Ipratropium 0.5 MG 3 ML INH PRN (10:49)
[2018-08-31] MEDS: Carbamide Peroxide 6.5% OTIC* 15 ML BTL BOTH EARS SCH ×2 (15:07→21:05)
--- NOTE | 2018-08-31 16:37 | PN ---
Subjective Date of Service: 08/31/18 Interval History: Pt seen and examined. Meds and labs reviewed. CC: SOB improving but still at 5L this AM; complains of hearing difficulties in the past few weeks. ROS: Denied PETERS/dizziness, F/C, N/V, CP, SOB, increased cough, sputum production , abd pain, diarrhea, constipation, dysuria, myalgias, arthralgias, throat pain , and new skin lesions. The rest of the 14 point ROS are unremarkable. PHYSICAL EXAM: GEN APPEARANCE: Awake, not in acute distress HEENT: NC/AT, PERRLA, moist oral mucosa, (-) throat erythema; (-) tenderness of tragus and pinnae, on otoscopic exam, (+)evidence of BL impacted cerumen, tympanic membrane not visible due to cerumen impaction NECK: Soft, supple, (-) cervical LAD, (+)JVD, (+)HJR, both improving HEART: S1S2 WNL, RRR, No MRG CHEST: CTA, BL, GAE, No W/R/(+)ronchi and occasional wheezing ABD: Soft, ND/NT, NABS 4x Q EXT: No C/C/E SKIN: Warm to touch PSYCH: No active psychosis, hallucinations, depression, SI/HI Objective Active Medications: Acetaminophen (Tylenol Tab*) 650 mg PO Q4H PRN PRN Reason: FEVER/PAIN Al Hydrox/Mg Hydrox/Simethicone (Maalox Plus*) 30 ml PO Q6H PRN PRN Reason: INDIGESTION Albuterol (Ventolin 2.5 Mg/3 Ml Neb.Nani*) 2.5 mg INH Q2H PRN PRN Reason: SOB/WHEEZING Albuterol/Ipratropium (Duoneb (Albuterol 2.5 Mg/Ipratropium 0.5 Mg)) 1 neb INH [id number] AWAKE PRN PRN Reason: SOB/WHEEZING Last Admin: 08/31/18 10:49 Dose: 1 neb Calcitonin [place] (Fortical(Nr)) 200 units ALT NARE DAILY [facility]; Protocol Last Admin: 08/31/18 10:21 Dose: 200 units Carbamide Peroxide (Debrox 6.5% Otic*) 10 drop BOTH EARS BID [facility] Stop: 09/04/18 11:59 Last Admin: 08/31/18 15:07 Dose: 10 drop Furosemide (Lasix Iv*) 40 mg IV BID [facility] Last Admin: 08/31/18 10:20 Dose: 40 mg Guaifenesin (Robitussin*) 10 ml PO QID [facility] Last Admin: 08/31/18 15:07 Dose: 10 ml Piperacillin Sod/Tazobactam (Sod 3.375 gm/ Sodium Chloride) 100 mls @ 25 mls/ hr IVPB Q8H [facility] Last Admin: 08/31/18 15:06 Dose: 25 mls/hr Doxycycline Hyclate 100 mg/ (Sodium Chloride) 250 mls @ 250 mls/hr IVPB Q12H [facility] Stop: 09/04/18 14:29 Last Admin: 08/31/18 15:07 Dose: 250 mls/hr Levothyroxine Sodium (Synthroid Tab*) 137 mcg PO DAILY@0600 [facility] Last Admin: 08/31/18 05:10 Dose: 137 mcg Metolazone (Zaroxolyn Tab*) 5 mg PO DAILY@0830 [facility] Last Admin: 08/31/18 07:39 Dose: 5 mg Morphine Sulfate (Morphine Oral.Soln 10 Mg*) 2 mg PO Q2H PRN PRN Reason: Pain or work of breathing Last Admin: 08/31/18 10:19 Dose: 2 mg Ondansetron HCl (Zofran Inj*) 4 mg IV Q4H PRN PRN Reason: NAUSEA/VOMITING Oxycodone/Acetaminophen (Percocet 5/325 Tab*) 1 tab PO Q4H PRN PRN Reason: PAIN Pantoprazole Sodium (Protonix Tab*) 40 mg PO DAILY [facility] Last Admin: 08/31/18 10:21 Dose: 40 mg Prednisone (Deltasone Tab*) 50 mg PO DAILY [facility] Last Admin: 08/31/18 10:21 Dose: 50 mg Vital Signs - 8 hr 08/31/18 08/31/18 08/31/18 10:19 10:50 11:58 Temperature 97.7 F Pulse Rate 84 84 Respiratory 28 17 22 Rate Blood Pressure 103/47 (mmHg) O2 Sat by Pulse 94 93 Oximetry 08/31/18 08/31/18 16:19 16:20 Temperature Pulse Rate Respiratory 28 26 Rate Blood Pressure (mmHg) O2 Sat by Pulse Oximetry Oxygen Devices in Use Now: Nasal Cannula Result Diagrams: 08/31/18 06:37 08/31/18 06:37 Microbiology and Other Data: Microbiology 08/24/18 22:39 Aerobic Blood Culture - Preliminary Blood Venous No Growth Day 3 Anaerobic Blood Culture - Preliminary No Growth Day 3 08/24/18 22:31 Aerobic Blood Culture - Preliminary Blood Venous No Growth Day 3 Anaerobic Blood Culture - Preliminary No Growth Day 3 08/26/18 20:10 Gram Stain - Final Sputum Expectorated 08/25/18 06:24 Legionella Urinary Antigen - Final Urine Negative Legionella Antigen Streptococcus pneumoniae Ag Screen - Final Negative S. pneumo Antigen 08/25/18 01:58 Nasal Screen MRSA (PCR) - Final Nasal Mrsa Not Detected 08/25/18 01:58 Influenza Types A,B Antigen - Final Nasal Specimen received for Influenza A/B Molecular testing Assess/Plan/Problems-Billing Assessment: - Patient Problems (1) Diastolic CHF Current Visit: Yes Status: Acute Code(s): I50.30 - UNSPECIFIED DIASTOLIC ( CONGESTIVE) HEART FAILURE SNOMED Code(s): 299096285 Comment: -Slowly improving -Pts clinical picture consistent with diastolic CHF as initially suspected ( along HCAP) -2D echo (08/25/18): No wall motion abnormalities, mild MR and TR, EF =50-55% -Continue IV Lasix BID and Metolazone (2) HCAP (healthcare-associated pneumonia) Current Visit: Yes Status: Acute Code(s): J18.9 - PNEUMONIA, UNSPECIFIED ORGANISM SNOMED Code(s): 694493262 Comment: -For repeat CXR in AM -Cultures had been negative -Continue Doxycycline for 4 more days to complete 10 day treatment therapy (3) Impacted cerumen Current Visit: Yes Status: Acute Code(s): H61.20 - IMPACTED CERUMEN, UNSPECIFIED EAR SNOMED Code(s): 30657553 Comment: -Placed pt on Debrox -Likely cause of hearing difficulties she has had in the past few weeks -Will continue watchful waiting (4) Buttock wound Current Visit: Yes Status: Acute Code(s): S31.809A - UNSPECIFIED OPEN WOUND OF UNSPECIFIED BUTTOCK, INIT ENCNTR SNOMED Code(s): 38222594 Comment: -Continue local wound care -Defer any further input from wound care service (5) CLL (chronic lymphocytic leukemia) Current Visit: Yes Status: Acute Code(s): C91.90 - LYMPHOID LEUKEMIA, UNSPECIFIED NOT HAVING ACHIEVED REMISSION SNOMED Code(s): 22617123 Comment: -Stable -Likely cause of pancytopenia -Defer w/Oncologist F/U as outpt (6) Hyponatremia Current Visit: No Status: Acute Code(s): E87.1 - HYPO-OSMOLALITY AND HYPONATREMIA SNOMED Code(s): 42543148 Comment: #Hypervolemic hyponatremia -Continues to improve w/diuresis (7) History of poliomyelitis Current Visit: No Status: Acute Code(s): Z86.12 - PERSONAL HISTORY OF POLIOMYELITIS SNOMED Code(s): 463763656 Comment: -R. leg weakness (8) Hypothyroidism Current Visit: No Status: Acute Code(s): E03.9 - HYPOTHYROIDISM, UNSPECIFIED SNOMED Code(s): 73831588 Comment: -Continue Levothyroxine -TSH WNL (9) DVT prophylaxis Current Visit: Yes Status: Acute Code(s): NJQ0961 - SNOMED Code(s): 097581645 Comment: -Continue SCDs -D/Cd Heparin as previous described due to severe thrombocytopenia likely due to pancytopenia due to CLL Status and Disposition: -Appreciate PT input -Pt would likely need DESTINY placement
[2018-09-01] MEDS: Albuterol/Ipratropium NEB.SOL* Albuterol 2.5 MG/Ipratropium 0.5 MG 3 ML INH PRN (00:58)
[2018-09-01] MEDS: DOXYcycline IV* 100 MG in NS 0.9% 250 ML* 250 ML IVPB SCH ×2 (02:40→14:00)
[2018-09-01] MEDS: Levothyroxine TAB* 137 MCG TAB PO SCH (05:53)
[2018-09-01] MEDS: ZOSYN 3.375 GM Q8H per EXTENDED INFUSION IVPB SCH ×6 (05:53→22:19)
[2018-09-01 07:11] LABS: Hematocrit 24 % (35-47); Hemoglobin 8.4 g/dl (12.0-16.0); Mean Corpuscular HGB Conc 35 g/dl (31-36); Mean Corpuscular Hemoglobin 33 pg (27-31); Mean Corpuscular Volume 95 fL (80-97); Mean Platelet Volume 9.3 fL (7.4-10.4); Platelet Count 15 10^3/ul (150-450); Red Blood Count 2.55 10^6/ul (4.00-5.40); Red Cell Distribution Width 23 % (10.5-15); White Blood Count 1.7 10^3/ul (3.5-10.8)
[2018-09-01 07:14] LABS: BUN/Creatinine Ratio 35.7 (8-20); Calcium 8.6 mg/dL (8.6-10.3); EGFR African American 124.5 (>60); EGFR Non-African American 102.9 (>60); Potassium 2.8 mmol/L (3.5-5.0)
[2018-09-01] MEDS: CMC:Calcitonin NASAL(NF) 200 UNITS/SPRAY NASAL.SPR ALT NARE SCH (10:07)
[2018-09-01] MEDS: Metolazone TAB* 5 MG PO SCH (10:07)
[2018-09-01] MEDS: guaiFENesin LIQ* 100 MG/5 ML UDC PO SCH ×4 (10:07→21:14)
[2018-09-01] MEDS: Pantoprazole TAB * 40 MG TAB PO SCH (10:07)
[2018-09-01] MEDS: predniSONE TAB* 50 MG PO SCH (10:07)
[2018-09-01] MEDS: Carbamide Peroxide 6.5% OTIC* 15 ML BTL BOTH EARS SCH ×2 (10:08→21:14)
[2018-09-01] MEDS: Furosemide IV* 10 MG/ML VIAL (40 MG) IV SCH (11:11)
--- NOTE | 2018-09-01 12:43 | PN ---
Subjective Date of Service: 09/01/18 Interval History: Some cough with no/scant sputum. No pain. Appetite fair. Objective Active Medications: Acetaminophen (Tylenol Tab*) 650 mg PO Q4H PRN PRN Reason: FEVER/PAIN Al Hydrox/Mg Hydrox/Simethicone (Maalox Plus*) 30 ml PO Q6H PRN PRN Reason: INDIGESTION Albuterol (Ventolin 2.5 Mg/3 Ml Neb.Nani*) 2.5 mg INH Q2H PRN PRN Reason: SOB/WHEEZING Albuterol/Ipratropium (Duoneb (Albuterol 2.5 Mg/Ipratropium 0.5 Mg)) 1 neb INH [id number] AWAKE PRN PRN Reason: SOB/WHEEZING Last Admin: 09/01/18 00:58 Dose: 1 neb Calcitonin [place] (Fortical(Nr)) 200 units ALT NARE DAILY [facility]; Protocol Last Admin: 09/01/18 10:07 Dose: 200 units Carbamide Peroxide (Debrox 6.5% Otic*) 10 drop BOTH EARS BID [facility] Stop: 09/04/18 11:59 Last Admin: 09/01/18 10:08 Dose: 10 drop Guaifenesin (Robitussin*) 10 ml PO QID [facility] Last Admin: 09/01/18 10:07 Dose: 10 ml Piperacillin Sod/Tazobactam (Sod 3.375 gm/ Sodium Chloride) 100 mls @ 25 mls/ hr IVPB Q8H [facility] Last Admin: 09/01/18 05:53 Dose: 25 mls/hr Doxycycline Hyclate 100 mg/ (Sodium Chloride) 250 mls @ 250 mls/hr IVPB Q12H [facility] Stop: 09/04/18 14:29 Last Admin: 09/01/18 02:40 Dose: 250 mls/hr Levothyroxine Sodium (Synthroid Tab*) 137 mcg PO DAILY@0600 [facility] Last Admin: 09/01/18 05:53 Dose: 137 mcg Metolazone (Zaroxolyn Tab*) 5 mg PO DAILY@0830 [facility] Last Admin: 09/01/18 10:07 Dose: 5 mg Ondansetron HCl (Zofran Inj*) 4 mg IV Q4H PRN PRN Reason: NAUSEA/VOMITING Pantoprazole Sodium (Protonix Tab*) 40 mg PO DAILY [facility] Last Admin: 09/01/18 10:07 Dose: 40 mg Potassium Chloride (Klor Con Er Tab*) 20 meq PO TID [facility] Prednisone (Deltasone Tab*) 50 mg PO DAILY [facility] Last Admin: 09/01/18 10:07 Dose: 50 mg Torsemide (Demadex*) 20 mg PO DAILY [facility] Oxygen Devices in Use Now: High Flow Nasal Cannula Appearance: Alert, in a chair. Occ harsh cough, otherwis looks comfortable. In good spirits. Eyes: No Scleral Icterus Neck: NL Appearance and Movements; NL JVP, No Thyroid Enlargement, Masses Respiratory: Symmetrical Chest Expansion and Respiratory Effort, Clear to Percussion, - - diminished BS BL. Cardiovascular: NL Sounds; No Murmurs; No JVD, RRR, No Edema, - Extremities: No Edema, No Clubbing, Cyanosis, - Skin: No Rash or Ulcers, No Nodules or Sclerosis, - Neurological: Alert and Oriented x 3, NL Sensation Result Diagrams: 09/01/18 06:09 09/01/18 06:09 Microbiology and Other Data: Microbiology 08/24/18 22:39 Aerobic Blood Culture - Preliminary Blood Venous No Growth Day 3 Anaerobic Blood Culture - Preliminary No Growth Day 3 08/24/18 22:31 Aerobic Blood Culture - Preliminary Blood Venous No Growth Day 3 Anaerobic Blood Culture - Preliminary No Growth Day 3 08/26/18 20:10 Gram Stain - Final Sputum Expectorated 08/25/18 06:24 Legionella Urinary Antigen - Final Urine Negative Legionella Antigen Streptococcus pneumoniae Ag Screen - Final Negative S. pneumo Antigen 08/25/18 01:58 Nasal Screen MRSA (PCR) - Final Nasal Mrsa Not Detected 08/25/18 01:58 Influenza Types A,B Antigen - Final Nasal Specimen received for Influenza A/B Molecular testing Assess/Plan/Problems-Billing Assessment: - Patient Problems (1) Hypoxia Current Visit: Yes Status: Acute Code(s): R09.02 - HYPOXEMIA SNOMED Code(s ): 263821240 Comment: ? due to both fluid overload and PNA Has finished 7 days pip/fabiano, will discuss with Dr. Lala. Taper prednisone, change to oral diuretic, replete K+. -Continue nebs (2) Hx of chronic lymphocytic leukemia Current Visit: No Status: Acute Code(s): Z85.6 - PERSONAL HISTORY OF LEUKEMIA SNOMED Code(s): 31873430693184 Comment: Stable pancytopenia. Dr. Colbert has decided to treat her with RBC transfusions as needed. Repeat CBC about 09/03. (3) Hyponatremia Current Visit: No Status: Acute Code(s): E87.1 - HYPO-OSMOLALITY AND HYPONATREMIA SNOMED Code(s): 37609844 Comment: #Hypervolemic hyponatremia -Continues to improve w/diuresis (4) History of poliomyelitis Current Visit: No Status: Acute Code(s): Z86.12 - PERSONAL HISTORY OF POLIOMYELITIS SNOMED Code(s): 279345481 Comment: -R. leg weakness (5) Hypothyroidism Current Visit: No Status: Acute Code(s): E03.9 - HYPOTHYROIDISM, UNSPECIFIED SNOMED Code(s): 62385045 Comment: -Continue Levothyroxine -TSH WNL Status and Disposition: -Appreciate PT input -Pt would likely need DESTINY placement
[2018-09-01 13:59] LABS: C Reactive Protein 72.07 mg/L (<8.01)
[2018-09-01] MEDS: Potassium Chlor TAB* 20 MEQ TAB.ER PO SCH ×2 (14:00→21:14)
[2018-09-02] MEDS: DOXYcycline IV* 100 MG in NS 0.9% 250 ML* 250 ML IVPB SCH (02:34)
[2018-09-02] MEDS: Albuterol/Ipratropium NEB.SOL* Albuterol 2.5 MG/Ipratropium 0.5 MG 3 ML INH PRN (04:56)
[2018-09-02] MEDS: ZOSYN 3.375 GM Q8H per EXTENDED INFUSION IVPB SCH ×2 (05:42)
[2018-09-02] MEDS: Levothyroxine TAB* 137 MCG TAB PO SCH (05:42)
[2018-09-02] MEDS: guaiFENesin LIQ* 100 MG/5 ML UDC PO SCH ×4 (07:29→19:43)
[2018-09-02] MEDS: CMC:Calcitonin NASAL(NF) 200 UNITS/SPRAY NASAL.SPR ALT NARE SCH (07:30)
[2018-09-02] MEDS: Carbamide Peroxide 6.5% OTIC* 15 ML BTL BOTH EARS SCH ×2 (07:30→19:47)
[2018-09-02] MEDS: Torsemide TAB* 20 MG PO SCH (07:30)
[2018-09-02] MEDS: Potassium Chlor TAB* 20 MEQ TAB.ER PO SCH ×3 (07:30→19:43)
[2018-09-02] MEDS: Pantoprazole TAB * 40 MG TAB PO SCH (07:31)
[2018-09-02] MEDS: Metolazone TAB* 5 MG PO SCH (07:31)
[2018-09-02 07:42] LABS: Hematocrit 24 % (35-47); Hemoglobin 8.2 g/dl (12.0-16.0); Mean Corpuscular HGB Conc 34 g/dl (31-36); Mean Corpuscular Hemoglobin 33 pg (27-31); Mean Corpuscular Volume 96 fL (80-97); Mean Platelet Volume 9.2 fL (7.4-10.4); Platelet Count 15 10^3/ul (150-450); Red Blood Count 2.49 10^6/ul (4.00-5.40); Red Cell Distribution Width 23 % (10.5-15); White Blood Count 1.6 10^3/ul (3.5-10.8)
[2018-09-02 07:57] LABS: Calcium 8.6 mg/dL (8.6-10.3); EGFR African American 141.9 (>60); EGFR Non-African American 117.3 (>60); Potassium 3.3 mmol/L (3.5-5.0)
[2018-09-02 08:15] LABS: ABS Basophils 0 10^3/ul (0-0.2); ABS Eosinophils 0 10^3/ul (0-0.6); ABS Lymphocytes 0.1 10^3/ul (1.0-4.8); ABS Monocytes 0 10^3/ul (0-0.8); ABS Neutrophils 1.4 10^3/ul (1.5-7.7); ABS Nucleated RBC 0 10^3/ul; Eosinophil % 0.9 %; Lymphocyte % 8.6 %; Nucleated Red Blood Cells % 0.2
[2018-09-02] MEDS ORDERED: predniSONE TAB* 20 MG PO SCH (09:00)
[2018-09-02] MEDS ORDERED: Morphine ORAL CONCENTRATE* 5 MG/0.25 ML ORAL.SYRIN SL PRN (10:54)
[2018-09-02] MEDS ORDERED: LORazepam TAB(*) 0.5 MG SL PRN (10:55)
[2018-09-02] MEDS ORDERED: Atropine 1% (ORAL/SL)* 15 ML BTL SL PRN (10:55)
--- NOTE | 2018-09-02 11:00 | PN ---
Subjective Date of Service: 09/02/18 Interval History: No subj change. Objective Active Medications: Acetaminophen (Tylenol Tab*) 650 mg PO Q4H PRN PRN Reason: FEVER/PAIN Al Hydrox/Mg Hydrox/Simethicone (Maalox Plus*) 30 ml PO Q6H PRN PRN Reason: INDIGESTION Albuterol (Ventolin 2.5 Mg/3 Ml Neb.Nani*) 2.5 mg INH Q2H PRN PRN Reason: SOB/WHEEZING Albuterol/Ipratropium (Duoneb (Albuterol 2.5 Mg/Ipratropium 0.5 Mg)) 1 neb INH [id number] AWAKE PRN PRN Reason: SOB/WHEEZING Last Admin: 09/02/18 04:56 Dose: 1 neb Amoxicillin/Clavulanate Potassium (Augmentin Tab*) 500 mg PO BID [facility] Calcitonin [place] (Fortical(Nr)) 200 units ALT NARE DAILY [facility]; Protocol Last Admin: 09/02/18 07:30 Dose: 200 units Carbamide Peroxide (Debrox 6.5% Otic*) 10 drop BOTH EARS BID [facility] Stop: 09/04/18 11:59 Last Admin: 09/02/18 07:30 Dose: 10 drop Doxycycline Hyclate (Vibramycin Cap(*)) 100 mg PO BID [facility] Guaifenesin (Robitussin*) 10 ml PO QID [facility] Last Admin: 09/02/18 07:29 Dose: 10 ml Levothyroxine Sodium (Synthroid Tab*) 137 mcg PO DAILY@0600 [facility] Last Admin: 09/02/18 05:42 Dose: 137 mcg Metolazone (Zaroxolyn Tab*) 5 mg PO DAILY@0830 [facility] Last Admin: 09/02/18 07:31 Dose: 5 mg Ondansetron HCl (Zofran Inj*) 4 mg IV Q4H PRN PRN Reason: NAUSEA/VOMITING Pantoprazole Sodium (Protonix Tab*) 40 mg PO DAILY [facility] Last Admin: 09/02/18 07:31 Dose: 40 mg Potassium Chloride (Klor Con Er Tab*) 20 meq PO TID [facility] Last Admin: 09/02/18 07:30 Dose: 20 meq Prednisone (Deltasone Tab*) 40 mg PO DAILY [facility] Last Admin: 09/02/18 07:31 Dose: 40 mg Torsemide (Demadex*) 20 mg PO DAILY [facility] Last Admin: 09/02/18 07:30 Dose: 20 mg Vital Signs - 8 hr 09/02/18 09/02/18 09/02/18 03:56 04:58 07:14 Temperature 97.8 F Pulse Rate 72 75 81 Respiratory 16 14 22 Rate Blood Pressure 126/51 (mmHg) O2 Sat by Pulse 94 93 94 Oximetry 09/02/18 09/02/18 07:44 08:00 Temperature Pulse Rate 70 Respiratory 22 18 Rate Blood Pressure (mmHg) O2 Sat by Pulse 96 Oximetry Oxygen Devices in Use Now: High Flow Nasal Cannula Appearance: Alert, partly up in bed. In good spirits. Looks comfortable. Neck: NL Appearance and Movements; NL JVP, No Thyroid Enlargement, Masses Respiratory: Symmetrical Chest Expansion and Respiratory Effort, Clear to Auscultation, Clear to Percussion Cardiovascular: NL Sounds; No Murmurs; No JVD, RRR, No Edema, - Extremities: No Edema, No Clubbing, Cyanosis, - Skin: No Rash or Ulcers, No Nodules or Sclerosis, - Neurological: Alert and Oriented x 3, NL Sensation, NL Gait, NL Muscle Strength and Tone, - Result Diagrams: 09/02/18 07:10 09/02/18 07:10 Microbiology and Other Data: Microbiology 08/24/18 22:39 Aerobic Blood Culture - Preliminary Blood Venous No Growth Day 3 Anaerobic Blood Culture - Preliminary No Growth Day 3 08/24/18 22:31 Aerobic Blood Culture - Preliminary Blood Venous No Growth Day 3 Anaerobic Blood Culture - Preliminary No Growth Day 3 08/26/18 20:10 Gram Stain - Final Sputum Expectorated 08/25/18 06:24 Legionella Urinary Antigen - Final Urine Negative Legionella Antigen Streptococcus pneumoniae Ag Screen - Final Negative S. pneumo Antigen 08/25/18 01:58 Nasal Screen MRSA (PCR) - Final Nasal Mrsa Not Detected 08/25/18 01:58 Influenza Types A,B Antigen - Final Nasal Specimen received for Influenza A/B Molecular testing Assess/Plan/Problems-Billing Assessment: - Patient Problems (1) Hypoxia Current Visit: Yes Status: Acute Code(s): R09.02 - HYPOXEMIA SNOMED Code(s ): 081248074 Comment: ? due to both fluid overload and PNA Change to po antibiotics to finish 09/08. Taper prednisone, continue oral diuretic, K+. -Continue nebs (2) Hx of chronic lymphocytic leukemia Current Visit: No Status: Acute Code(s): Z85.6 - PERSONAL HISTORY OF LEUKEMIA SNOMED Code(s): 25091841060859 Comment: Stable pancytopenia. Dr. Colbert has decided to treat her with RBC transfusions as needed. Repeat CBC about 09/03. (3) Hyponatremia Current Visit: No Status: Acute Code(s): E87.1 - HYPO-OSMOLALITY AND HYPONATREMIA SNOMED Code(s): 91185058 Comment: #Hypervolemic hyponatremia -Continues to improve w/diuresis (4) History of poliomyelitis Current Visit: No Status: Acute Code(s): Z86.12 - PERSONAL HISTORY OF POLIOMYELITIS SNOMED Code(s): 091651833 Comment: -R. leg weakness (5) Hypothyroidism Current Visit: No Status: Acute Code(s): E03.9 - HYPOTHYROIDISM, UNSPECIFIED SNOMED Code(s): 88967485 Comment: -Continue Levothyroxine -TSH WNL (6) End of life care Current Visit: Yes Status: Acute Code(s): Z51.5 - ENCOUNTER FOR PALLIATIVE CARE SNOMED Code(s): 634626628 Comment: Patient is very limited by her advanced CLL, poorly responsive PNA and/or CHF. She agrees to comfort measures only, no further hospitalizations. Hospice referral to be made by CM. Status and Disposition: -Appreciate PT input -Pt would likely need DESTINY placement
--- NOTE | 2018-09-02 13:42 | CONSULT ---
Palliative / Hospice Consult Ordering Provider: Jean Pierre Espinal - Subjective Code Status: DNR Advance Directives Location: In Chart MOLST Part A Completed: Yes - completed on chart MOLST Part E Completed:: Yes - completed on chart - History or Present Illness History or Present Illness: 83 yo female resident of 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 She is followed by Dr. Espinal. Pt was brought to ER with SOB and cough. She was found to be in acute hypoxic respiratory failure secondary to pnuemonia and CHF. 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 She has had frequent hospital visits 04/07 ER visit , hip pain 05/16-, 05/21-01/05 for anemia and 08/11- for pancytopenia. She was independently living until her 06/07 hospitalization. Her ECHO is 50-55%, EKG nl, CXR progressive consolidation of RML and RLL and LLL with atelectasis. BUN/Cr 21/.5 egfr 117, Calcium 8.6, tprot 5.1 and alb 3.2. She is a of 38 yrs and has 2 stepchildren son is in his 70's and not involved and daughter lives out of state. She has a friend Radha who has been helping her when she lived independently. She is a non smoker, drug user and no etoh. Lab Values: Abnormal Lab Results 09/01/18 09/02/18 09/02/18 06:09 07:10 07:10 WBC 1.6 L RBC 2.49 L Hgb 8.2 L Hct 24 L MCV 96 MCH 33 H MCHC 34 RDW 23 H Plt Count 15 L* MPV 9.2 Neut % (Auto) 88.9 Lymph % (Auto) 8.6 [place] % (Auto) 1.2 Eos % (Auto) 0.9 Baso % (Auto) 0.4 Absolute Neuts (auto) 1.4 L Absolute Lymphs (auto) 0.1 L Absolute Monos (auto) 0 Absolute Eos (auto) 0 Absolute Basos (auto) 0 Absolute Nucleated RBC 0 Nucleated RBC % 0.2 Sodium 134 L 134 L Potassium 2.8 L 3.3 L Chloride 90 L 91 L Carbon Dioxide 36 H 36 H Anion Gap 8 7 BUN 20 21 Creatinine 0.56 0.50 L Est GFR ( Amer) 124.5 141.9 Est GFR (Non-Af Amer) 102.9 117.3 BUN/Creatinine Ratio 35.7 H 42.0 H Glucose 106 H 101 H Calcium 8.6 8.6 Magnesium 2.0 C-Reactive Protein 72.07 H Laboratory Last Values WBC 1.6 10^3/ul (3.5-10.8) L 09/02/18 07:10 RBC 2.49 10^6/ul (4.00-5.40) L 09/02/18 07:10 Hgb 8.2 g/dl (12.0-16.0) L 09/02/18 07:10 Hct 24 % (35-47) L 09/02/18 07:10 MCV 96 fL (80-97) 09/02/18 07:10 MCH 33 pg (27-31) H 09/02/18 07:10 MCHC 34 g/dl (31-36) 09/02/18 07:10 RDW 23 % (10.5-15) H 09/02/18 07:10 Plt Count 15 10^3/ul (150-450) L* 09/02/18 07:10 MPV 9.2 fL (7.4-10.4) 09/02/18 07:10 Neut % (Auto) 88.9 % 09/02/18 07:10 Lymph % (Auto) 8.6 % 09/02/18 07:10 Preston % (Auto) 1.2 % 09/02/18 07:10 Eos % (Auto) 0.9 % 09/02/18 07:10 Baso % (Auto) 0.4 % 09/02/18 07:10 Absolute Neuts (auto) 1.4 10^3/ul (1.5-7.7) L 09/02/18 07:10 Absolute Lymphs (auto) 0.1 10^3/ul (1.0-4.8) L 09/02/18 07:10 Absolute Monos (auto) 0 10^3/ul (0-0.8) 09/02/18 07:10 Absolute Eos (auto) 0 10^3/ul (0-0.6) 09/02/18 07:10 Absolute Basos (auto) 0 10^3/ul (0-0.2) 09/02/18 07:10 Absolute Nucleated RBC 0 10^3/ul 09/02/18 07:10 Nucleated RBC % 0.2 09/02/18 07:10 Polychromasia 1+ 08/24/18 22:39 Anisocytosis 2+ 08/24/18 22:39 [place] Cells 1+ 08/24/18 22:39 INR (Anticoag Therapy) 1.12 (0.77-1.02) H 08/24/18 22:31 APTT 27.8 seconds (26.0-36.3) 08/24/18 22:31 ABG pH 7.45 (7.35-7.45) 08/24/18 22:39 ABG pCO2 24 mmHg (35-45) L 08/24/18 22:39 ABG pO2 115 mmHg (80-100) H 08/24/18 22:39 ABG HCO3 20.6 mmol/L (19-31) 08/24/18 22:39 ABG O2 Saturation 99.4 % (94.0-98.0) H 08/24/18 22:39 ABG Base Excess -5.5 mmol/L (-2.0-2.0) L 08/24/18 22:39 Sodium 134 mmol/L (135-145) L 09/02/18 07:10 Potassium 3.3 mmol/L (3.5-5.0) L 09/02/18 07:10 Chloride 91 mmol/L (101-111) L 09/02/18 07:10 Carbon Dioxide 36 mmol/L (22-32) H 09/02/18 07:10 Anion Gap 7 mmol/L (2-11) 09/02/18 07:10 BUN 21 mg/dL (6-24) 09/02/18 07:10 Creatinine 0.50 mg/dL (0.51-0.95) L 09/02/18 07:10 Est GFR ( Amer) 141.9 (>60) 09/02/18 07:10 Est GFR (Non-Af Amer) 117.3 (>60) 09/02/18 07:10 BUN/Creatinine Ratio 42.0 (8-20) H 09/02/18 07:10 Glucose 101 mg/dL (70-100) H 09/02/18 07:10 Serum Osmolality 242 mOsm/kg (275-295) L 08/24/18 22:30 Lactic Acid 1.3 mmol/L (0.5-2.0) 08/24/18 22:39 Calcium 8.6 mg/dL (8.6-10.3) 09/02/18 07:10 Phosphorus 3.7 mg/dL (2.5-5.0) 08/31/18 06:37 Magnesium 2.0 mg/dL (1.9-2.7) 09/01/18 06:09 Total Bilirubin 1.10 mg/dL (0.2-1.0) H 08/31/18 06:37 AST 28 U/L (13-39) 08/31/18 06:37 ALT 30 U/L (7-52) 08/31/18 06:37 Alkaline Phosphatase 24 U/L (34-104) L 08/31/18 06:37 Troponin I 0.23 ng/mL (<0.04) H* 08/25/18 02:02 C-Reactive Protein 72.07 mg/L (<8.01) H 09/01/18 06:09 B-Natriuretic Peptide 333 pg/mL (<=100) H 08/30/18 05:55 Total Protein 5.1 g/dL (6.4-8.9) L 08/31/18 06:37 Albumin 3.1 g/dL (3.2-5.2) L 08/31/18 06:37 Globulin 2.0 g/dL (2-4) 08/31/18 06:37 Albumin/Globulin Ratio 1.6 (1-3) 08/31/18 06:37 Prealbumin 7 mg/dL (18-38) L 08/24/18 22:31 TSH 2.99 mcIU/mL (0.34-5.60) 08/24/18 22:31 Vancomycin Trough 16.0 mcg/mL 08/27/18 04:40 Influenza A (Rapid) Negative (Negative) 08/25/18 02:39 Influenza B (Rapid) Negative (Negative) 08/25/18 02:39 Blood Type B Positive 08/27/18 04:40 Antibody Screen Negative 08/27/18 04:40 Crossmatch See Detail 08/27/18 04:40 - Objective Active Medications: Acetaminophen (Tylenol Tab*) 650 mg PO Q4H PRN PRN Reason: FEVER/PAIN Al Hydrox/Mg Hydrox/Simethicone (Maalox Plus*) 30 ml PO Q6H PRN PRN Reason: INDIGESTION Albuterol (Ventolin 2.5 Mg/3 Ml Neb.Nani*) 2.5 mg INH Q2H PRN PRN Reason: SOB/WHEEZING Albuterol/Ipratropium (Duoneb (Albuterol 2.5 Mg/Ipratropium 0.5 Mg)) 1 neb INH [id number] AWAKE PRN PRN Reason: SOB/WHEEZING Last Admin: 09/02/18 04:56 Dose: 1 neb Amoxicillin/Clavulanate Potassium (Augmentin Tab*) 500 mg PO BID [facility] Atropine Sulfate (Atropine 1% (Oral/Sl)*) 2 drop SL Q2H PRN PRN Reason: DISCOMFORT Calcitonin Miller (Fortical(Nr)) 200 units ALT NARE DAILY [facility]; Protocol Last Admin: 09/02/18 07:30 Dose: 200 units Carbamide Peroxide (Debrox 6.5% Otic*) 10 drop BOTH EARS BID [facility] Stop: 09/04/18 11:59 Last Admin: 09/02/18 07:30 Dose: 10 drop Doxycycline Hyclate (Vibramycin Cap(*)) 100 mg PO BID [facility] Guaifenesin (Robitussin*) 10 ml PO QID [facility] Last Admin: 09/02/18 07:29 Dose: 10 ml Levothyroxine Sodium (Synthroid Tab*) 137 mcg PO DAILY@0600 [facility] Last Admin: 09/02/18 05:42 Dose: 137 mcg Lorazepam (Ativan Tab(*)) 0.5 mg SL Q3H PRN PRN Reason: ANXIETY Metolazone (Zaroxolyn Tab*) 5 mg PO DAILY@0830 [facility] Last Admin: 09/02/18 07:31 Dose: 5 mg Morphine Sulfate (Morphine Oral Concentrate*) 2.5 mg SL Q30M PRN PRN Reason: PAIN Ondansetron HCl (Zofran Inj*) 4 mg IV Q4H PRN PRN Reason: NAUSEA/VOMITING Pantoprazole Sodium (Protonix Tab*) 40 mg PO DAILY [facility] Last Admin: 09/02/18 07:31 Dose: 40 mg Potassium Chloride (Klor Con Er Tab*) 20 meq PO TID [facility] Last Admin: 09/02/18 07:30 Dose: 20 meq Prednisone (Deltasone Tab*) 30 mg PO DAILY [facility] Torsemide (Demadex*) 20 mg PO DAILY [facility] Last Admin: 09/02/18 07:30 Dose: 20 mg Vital Signs: Vital Signs: Temp Pulse Resp BP Pulse Ox 98.7 F 70 18 109/52 98 09/02/18 11:29 09/02/18 11:29 09/02/18 11:29 09/02/18 11:29 09/02/18 11:29 Patient Weight: Weight 53.524 kg Intake and Output: Intake & Output 08/31/18 09/01/18 09/02/18 09/03/18 06:59 06:59 06:59 06:59 Intake Total 277 810 5184 Output Total 2325 400 700 Balance -1975 430 783 Weight 59.239 kg 56.427 kg 53.524 kg Intake: IV Fluids 543 all fluids 543 IVPB 350 ABX - ZOSYN 100 doxy 250 Oral 350 830 590 Output: Urine 2325 400 700 Other: Estimated Void Medium Medium Medium # Bowel Movements 1 1 0 Estimated Stool Amount Medium Medium # Voids 4 1 1 ADLs: Meal Record Start: 08/25/18 01: 36 Freq: ,13,18 Status: Inactive Protocol: Created 08/25/18 01:36 System (Rec: 08/25/18 01:36 System ICU-C06) Document 08/25/18 09:00 [id number] (Rec: 08/25/18 11:06 [id number] ICU-C07) Document 08/25/18 13:00 SPM7036 (Rec: 08/25/18 14:36 HDB1256 ICU-C07) Document 08/25/18 18:00 [id number] (Rec: 08/25/18 23:36 [id number] ICU-C07) Document 08/26/18 09:00 AQK3716 (Rec: 08/26/18 11:45 XRJ1456 ICU-C07) Document 08/26/18 13:00 CNA0498 (Rec: 08/26/18 14:27 HDY1707 ICU-C07) Document 08/27/18 09:00 KBQ6156 (Rec: 08/27/18 11:33 [id number] ICU-C07) ADLs: Meal Record Start: 08/28/18 09: 04 Freq: 0900,1400,1800 Status: Active Protocol: Created 08/28/18 09:04 [id number] (Rec: 08/28/18 09:04 [id number] MED-C11) Document 08/28/18 09:39 USX1528 (Rec: 08/28/18 09:39 OHX7485 MED-C11) Document 08/28/18 14:00 HVA4324 (Rec: 08/28/18 15:37 [id number] MED-C11) Document 08/28/18 18:22 XNM0362 (Rec: 08/28/18 18:22 JJV5171 MED-C11) Document 08/29/18 09:00 PJA5644 (Rec: 08/29/18 10:07 HTK4641 MED-C09) Document 08/29/18 13:57 QWW6845 (Rec: 08/29/18 13:57 ZCK4735 MED-M01) Document 08/29/18 18:00 LRI2948 (Rec: 08/29/18 18:46 SBK2301 MED-C15) Document 08/30/18 09:00 MXC0703 (Rec: 08/30/18 09:36 BUM8802 MED-C11) Document 08/30/18 14:00 IKA3728 (Rec: 08/30/18 15:12 FWR6345 MED-C09) Document 08/30/18 18:00 RXK5710 (Rec: 08/30/18 19:00 HIH4394 MED-C09) Document 08/31/18 09:00 NAZ3614 (Rec: 08/31/18 10:19 VPL8265 MED-C11) Document 08/31/18 14:00 VNU5886 (Rec: 08/31/18 14:44 WQV7424 MED-C11) Document 08/31/18 18:00 TSV1174 (Rec: 08/31/18 19:01 BJH5095 MED-C04) Document 09/01/18 09:00 ZOM2993 (Rec: 09/01/18 17:42 KQY3225 MED-C11) Document 09/01/18 14:00 ABR1626 (Rec: 09/01/18 17:42 STZ2120 MED-C11) Document 09/01/18 18:00 HLT7491 (Rec: 09/01/18 21:52 WZJ6044 MED-C14) Intake and Output Start: 08/24/18 22: 11 Freq: Status: Cancelled Protocol: Created 08/24/18 22:11 System (Rec: 08/24/18 22:11 System [id number]-C14) Intake and Output Start: 08/25/18 01: 36 Freq: Q1HR Status: Cancelled Protocol: Created 08/25/18 01:36 System (Rec: 08/25/18 01:36 System ICU-C06) Intake and Output Start: 08/25/18 05: 31 Freq: 06,14,2200 Status: Active Protocol: Created 08/25/18 05:32 [id number] (Rec: 08/25/18 05:32 BKG NATALIIA-BG12) Document 08/25/18 06:00 XNT7833 (Rec: 08/25/18 08:09 FQP3128 ICU-C03) Document 08/25/18 08:00 FVW6205 (Rec: 08/25/18 10:33 EYK6861 ICU-C07) Document 08/25/18 10:00 PQD8642 (Rec: 08/25/18 10:33 ICW2696 ICU-C07) Document 08/25/18 12:00 QHL5752 (Rec: 08/25/18 13:39 YNA1093 ICU-C07) Document 08/25/18 14:00 UYT9690 (Rec: 08/25/18 14:44 ITM1041 ICU-C07) Document 08/25/18 16:00 JDP0109 (Rec: 08/25/18 16:05 VHH5966 ICU-C07) Document 08/25/18 18:00 ILX4991 (Rec: 08/25/18 18:34 ZJY3399 ICU-C07) Document 08/25/18 21:00 JXC7866 (Rec: 08/25/18 23:39 BJP6823 ICU-C07) Document 08/26/18 02:00 DQV3086 (Rec: 08/26/18 02:35 LBZ1319 ICU-C07) Document 08/26/18 08:00 HXU5580 (Rec: 08/26/18 09:45 UCC1129 ICU-C07) Document 08/26/18 10:00 GXO3237 (Rec: 08/26/18 12:32 JAF1227 ICU-C07) Document 08/26/18 12:00 IUT8136 (Rec: 08/26/18 12:48 TNI8338 ICU-C07) Document 08/26/18 14:00 ZCE7663 (Rec: 08/26/18 14:49 RQC1118 ICU-M24) Document 08/26/18 16:00 LQY9002 (Rec: 08/26/18 16:05 VCO4623 ICU-M24) Document 08/26/18 20:00 YTI8533 (Rec: 08/26/18 20:28 PVG1185 ICU-M24) Document 08/26/18 22:00 GFV1256 (Rec: 08/26/18 22:26 BCY2288 ICU-M29) Document 08/27/18 00:00 DMF5743 (Rec: 08/27/18 01:19 MAN7052 ICU-C07) Document 08/27/18 02:00 ZTK3313 (Rec: 08/27/18 02:52 FYB6485 ICU-C07) Document 08/27/18 03:06 COQ9667 (Rec: 08/27/18 03:06 POZ1644 ICU-C07) Document 08/27/18 04:00 MBS4329 (Rec: 08/27/18 04:52 JEG6215 ICU-C07) Document 08/27/18 06:00 VAJ3487 (Rec: 08/27/18 06:07 WWI0168 ICU-C07) Document 08/27/18 22:00 WIM7084 (Rec: 08/27/18 23:44 BLV1430 MED-C14) Document 08/28/18 05:32 UPZ9736 (Rec: 08/28/18 05:32 QDF6344 MED-C09) Document 08/28/18 06:16 PSE1567 (Rec: 08/28/18 06:17 FOA7592 MED-M09) Document 08/28/18 14:00 UEX5485 (Rec: 08/28/18 15:37 UAL7526 MED-C11) Document 08/28/18 22:00 BWI8111 (Rec: 08/28/18 23:49 NNA5844 MED-C04) Document 08/29/18 06:00 TAY3699 (Rec: 08/29/18 07:04 DZT3710 MED-C04) Document 08/29/18 14:00 QWL9934 (Rec: 08/29/18 14:40 PAL2565 MED-C09) Document 08/29/18 20:57 XQV7132 (Rec: 08/29/18 20:58 KSV6850 MED-C42) Document 08/30/18 06:00 EYC6960 (Rec: 08/30/18 06:34 SNW5760 MED-C11) Document 08/30/18 14:00 ALM5895 (Rec: 08/30/18 15:11 MIY5814 MED-C09) Document 08/30/18 22:00 OLP3170 (Rec: 08/30/18 22:12 KRT3269 MED-C02) Document 08/31/18 00:24 JGH9576 (Rec: 08/31/18 00:24 QJE1153 MED-C12) Document 08/31/18 06:00 YRP9098 (Rec: 08/31/18 06:19 JFF4499 MED-C11) Document 08/31/18 22:00 KPF4952 (Rec: 08/31/18 22:06 PCK7005 MED-C04) Document 09/01/18 06:00 NBF0981 (Rec: 09/01/18 06:17 FZT5457 MED-C07) Document 09/01/18 21:55 JXI2568 (Rec: 09/01/18 21:57 FPI4899 MED-C14) Document 09/02/18 05:33 GYE4582 (Rec: 09/02/18 05:34 [id number] MED-C09) Eyes: No Scleral Icterus Neck: NL Appearance and Movements; NL JVP, No Thyroid Enlargement, Masses Cardiovascular: NL Sounds; No Murmurs; No JVD, RRR, No Edema, - Extremities: No Edema, No Clubbing, Cyanosis, - Neurological: Alert and Oriented x 3, NL Sensation, NL Gait, NL Muscle Strength and Tone, - - Assessment Assessment: 83 yo female with CLL, pancytopenia and acute hypoxia respiratory failure - Plan Consult Plan (MU): Hospice Plan: Spoke with pt she is eager to get back to [facility] she is interested to have a hospice evaluation because she realizes her CLL is getting worse and no treatment options available also notes her breathing is getting worse and she is declining. She doesn't want to keep coming back to the hospital and she is aware that she is at the end of her life. She should qualify with CLL with pancytopenia and no further treatment options, acute hypoxic respiratory failure O2 dependent due to pneumonia and CHF. KPS 20-30%, PPS 30-40%. substation manager is submitting referral to hospice. Pt follows with Dr. Espinal. - Time On Unit Date of Evaluation: 09/02/18 Hospice Consult Time in: 01:00 Hospice Consult Time Out: 02:00 Hospice Consult Time Total: 60 > 50% of Time Spend In Counseling or Coordinating Care: Yes
[2018-09-02] MEDS: Amoxicillin/Clavulanate TAB* 500 MG PO SCH (19:43)
[2018-09-02] MEDS: DOXYcycline CAP(*) 100 MG PO SCH (19:43)
[2018-09-03] MEDS: Levothyroxine TAB* 137 MCG TAB PO SCH (05:43)
[2018-09-03] MEDS: CMC:Calcitonin NASAL(NF) 200 UNITS/SPRAY NASAL.SPR ALT NARE SCH (08:26)
[2018-09-03] MEDS: guaiFENesin LIQ* 100 MG/5 ML UDC PO SCH ×4 (08:27→22:11)
[2018-09-03] MEDS: Torsemide TAB* 20 MG PO SCH (08:28)
[2018-09-03] MEDS: Pantoprazole TAB * 40 MG TAB PO SCH (08:28)
[2018-09-03] MEDS: Potassium Chlor TAB* 20 MEQ TAB.ER PO SCH ×3 (08:28→22:11)
[2018-09-03] MEDS: DOXYcycline CAP(*) 100 MG PO SCH ×2 (08:28→22:11)
[2018-09-03] MEDS: Carbamide Peroxide 6.5% OTIC* 15 ML BTL BOTH EARS SCH ×2 (08:28→22:11)
[2018-09-03] MEDS: Amoxicillin/Clavulanate TAB* 500 MG PO SCH ×2 (08:28→22:11)
[2018-09-03] MEDS ORDERED: predniSONE TAB* 10 MG PO SCH (09:00)
[2018-09-03] MEDS ORDERED: Potassium Chloride LIQUID* 20 MEQ PACKET PO ONE (17:18)
--- NOTE | 2018-09-03 17:21 | PN ---
Subjective Date of Service: 09/03/18 Interval History: Pt is feeling ok. She states her breathing is at about baseline. She denies any pain. She is ready to either go back to [facility] or the hospice residence on d/c. Objective Active Medications: Acetaminophen (Tylenol Tab*) 650 mg PO Q4H PRN PRN Reason: FEVER/PAIN Al Hydrox/Mg Hydrox/Simethicone (Maalox Plus*) 30 ml PO Q6H PRN PRN Reason: INDIGESTION Albuterol (Ventolin 2.5 Mg/3 Ml Neb.Nani*) 2.5 mg INH Q2H PRN PRN Reason: SOB/WHEEZING Albuterol/Ipratropium (Duoneb (Albuterol 2.5 Mg/Ipratropium 0.5 Mg)) 1 neb INH RT.[id number] AWAKE PRN PRN Reason: SOB/WHEEZING Last Admin: 09/02/18 04:56 Dose: 1 neb Amoxicillin/Clavulanate Potassium (Augmentin Tab*) 500 mg PO BID [facility] Last Admin: 09/03/18 08:28 Dose: 500 mg Atropine Sulfate (Atropine 1% (Oral/Sl)*) 2 drop SL Q2H PRN PRN Reason: DISCOMFORT Calcitonin [place] (Fortical(Nr)) 200 units ALT NARE DAILY [facility]; Protocol Last Admin: 09/03/18 08:26 Dose: 200 units Carbamide Peroxide (Debrox 6.5% Otic*) 10 drop BOTH EARS BID [facility] Stop: 09/04/18 11:59 Last Admin: 09/03/18 08:28 Dose: 10 drop Doxycycline Hyclate (Vibramycin Cap(*)) 100 mg PO BID [facility] Last Admin: 09/03/18 08:28 Dose: 100 mg Guaifenesin (Robitussin*) 10 ml PO QID [facility] Last Admin: 09/03/18 13:37 Dose: 10 ml Levothyroxine Sodium (Synthroid Tab*) 137 mcg PO DAILY@0600 [facility] Last Admin: 09/03/18 05:43 Dose: 137 mcg Lorazepam (Ativan Tab(*)) 0.5 mg SL Q3H PRN PRN Reason: ANXIETY Morphine Sulfate (Morphine Oral Concentrate*) 2.5 mg SL Q30M PRN PRN Reason: PAIN Ondansetron HCl (Zofran Inj*) 4 mg IV Q4H PRN PRN Reason: NAUSEA/VOMITING Pantoprazole Sodium (Protonix Tab*) 40 mg PO DAILY [facility] Last Admin: 09/03/18 08:28 Dose: 40 mg Potassium Chloride (Klor Con Er Tab*) 20 meq PO TID [facility] Last Admin: 09/03/18 13:37 Dose: 20 meq Potassium Chloride (Klor-Con Liquid*) 20 meq PO ONCE ONE Stop: 09/03/18 17:19 Prednisone (Deltasone Tab*) 30 mg PO DAILY [facility] Last Admin: 09/03/18 08:28 Dose: 30 mg Torsemide (Demadex*) 20 mg PO DAILY [facility] Last Admin: 09/03/18 08:28 Dose: 20 mg Vital Signs - 8 hr 09/03/18 12:18 Temperature 97.7 F Pulse Rate 81 Respiratory 16 Rate Blood Pressure 96/43 (mmHg) O2 Sat by Pulse 97 Oximetry Oxygen Devices in Use Now: Nasal Cannula Appearance: Elderly female lying in bed, NAD Eyes: No Scleral Icterus Ears/Nose/Mouth/Throat: Mucous Membranes Moist Respiratory: Symmetrical Chest Expansion and Respiratory Effort, Clear to Auscultation - decreased breath sounds throughout with fine crackles at the L base Cardiovascular: NL Sounds; No Murmurs; No JVD, RRR, No Edema Abdominal: NL Sounds; No Tenderness; No Distention Extremities: No Clubbing, Cyanosis Skin: No Nodules or Sclerosis Neurological: Alert and Oriented x 3 Result Diagrams: 09/02/18 07:10 09/02/18 07:10 Microbiology and Other Data: Microbiology 08/24/18 22:39 Aerobic Blood Culture - Preliminary Blood Venous No Growth Day 3 Anaerobic Blood Culture - Preliminary No Growth Day 3 08/24/18 22:31 Aerobic Blood Culture - Preliminary Blood Venous No Growth Day 3 Anaerobic Blood Culture - Preliminary No Growth Day 3 08/26/18 20:10 Gram Stain - Final Sputum Expectorated 08/25/18 06:24 Legionella Urinary Antigen - Final Urine Negative Legionella Antigen Streptococcus pneumoniae Ag Screen - Final Negative S. pneumo Antigen 08/25/18 01:58 Nasal Screen MRSA (PCR) - Final Nasal Mrsa Not Detected 08/25/18 01:58 Influenza Types A,B Antigen - Final Nasal Specimen received for Influenza A/B Molecular testing Assess/Plan/Problems-Billing Ms Marcial is an 83 yo F who has a h/o advanced CLL with no more treatment options, hypothyroidism and HLD who presented to the ER with c/o SOB and was admitted for acute respiratory distress secondary to HCAP and decompensated CHF. - Patient Problems (1) HCAP (healthcare-associated pneumonia) Current Visit: Yes Status: Acute Code(s): J18.9 - PNEUMONIA, UNSPECIFIED ORGANISM SNOMED Code(s): 228367455 Comment: The patient has been treated with several Abx-now on augmentin and doxycycline. Stop Abx therapy after tomorrow's dose. (2) Diastolic CHF Current Visit: Yes Status: Acute Code(s): I50.30 - UNSPECIFIED DIASTOLIC ( CONGESTIVE) HEART FAILURE SNOMED Code(s): 037034025 Comment: Pt was felt to be in decompensated CHF on admission. She was diuresed with IV lasix and metolazone. She is now on torsemide and appears relatively euvolemic. (3) CLL (chronic lymphocytic leukemia) Current Visit: Yes Status: Acute Code(s): C91.90 - LYMPHOID LEUKEMIA, UNSPECIFIED NOT HAVING ACHIEVED REMISSION SNOMED Code(s): 60840344 Comment: Pt with pancytopenia secondary to CLL- no further treatment options at this time. Pt is requesting hospice and will be signed on soon. (4) Hypothyroidism Current Visit: Yes Status: Acute Code(s): E03.9 - HYPOTHYROIDISM, UNSPECIFIED SNOMED Code(s): 38616775 Comment: Continue current synthroid dose. (5) HLD (hyperlipidemia) Current Visit: Yes Status: Acute Code(s): E78.5 - HYPERLIPIDEMIA, UNSPECIFIED SNOMED Code(s): 37599379 Comment: Statin is on hold. (6) DVT prophylaxis Current Visit: Yes Status: Acute Code(s): RDB9251 - SNOMED Code(s): 379650710 Comment: SCDs only secondary to severe thrombocytopenia (7) DNR (do not resuscitate) Current Visit: Yes Status: Acute Status and Disposition: .
[2018-09-04] MEDS: Levothyroxine TAB* 137 MCG TAB PO SCH (05:31)
[2018-09-04 07:20] LABS: BUN/Creatinine Ratio 48.5 (8-20); Calcium 9.1 mg/dL (8.6-10.3); EGFR Non-African American 85.1 (>60); Potassium 4.5 mmol/L (3.5-5.0)
[2018-09-04] MEDS: Pantoprazole TAB * 40 MG TAB PO SCH (08:25)
[2018-09-04] MEDS: Amoxicillin/Clavulanate TAB* 500 MG PO SCH (08:25)
[2018-09-04] MEDS: DOXYcycline CAP(*) 100 MG PO SCH (08:25)
[2018-09-04] MEDS: guaiFENesin LIQ* 100 MG/5 ML UDC PO SCH ×2 (08:25→14:01)
[2018-09-04] MEDS: Torsemide TAB* 20 MG PO SCH (08:25)
[2018-09-04] MEDS: Potassium Chlor TAB* 20 MEQ TAB.ER PO SCH ×2 (08:26→14:01)
[2018-09-04] MEDS: Carbamide Peroxide 6.5% OTIC* 15 ML BTL BOTH EARS SCH (08:26)
[2018-09-04] MEDS: CMC:Calcitonin NASAL(NF) 200 UNITS/SPRAY NASAL.SPR ALT NARE SCH (08:26)
[2018-09-04] MEDS ORDERED: predniSONE TAB* 10 MG PO SCH (09:00)
--- NOTE | 2018-09-04 15:42 | DS ---
CC: Seb Rosenberg; Dr. Espinal * DATE OF ADMISSION: 08/25/2018. DATE OF DISCHARGE: 09/04/2018. PRIMARY CARE PHYSICIAN: Provider at [facility]. PRINCIPAL DIAGNOSES: 1. Healthcare associated pneumonia. 2. Acute decompensated diastolic congestive heart failure. 3. Advanced CLL with no further treatment options. SECONDARY DIAGNOSES: 1. Hyponatremia. 2. Hypothyroidism. 3. Hyperlipidemia. 4. GERD. DISCHARGE MEDICATIONS: 1. Simvastatin 20 mg p.o. daily. 2. Evista 60 mg p.o. daily. 3. Omeprazole 20 mg p.o. daily. 4. Levothyroxine 137 mcg p.o. daily. 5. Calcitonin 1 mg alternate nares daily. 6. Albuterol two puffs inhaled q.6 hours prn shortness of breath. 7. Tylenol 650 mg p.o. q.6 hours prn pain. 8. Prednisone 20 mg daily times 1 day, then 10 mg daily times 3 days. 9. Robitussin 10 ml p.o. 4 times daily prn cough. 10. Torsemide 20 mg p.o. daily (new). 11. Potassium Chloride 20 mEq p.o. t.i.d. (new). 12. Morphine oral concentrate 2.5 mg SL q.30 minutes prn pain or shortness of breath. 13. Ativan 0.5 mg p.o./SL q.3 hours prn anxiety. 14. Albuterol one neb inhaled q.2 hours prn shortness of breath. HOSPITAL COURSE: Ms. Begum is an 83-year-old female with a history of advanced CLL who has not been offered any further treatment, who presented to the emergency room on 08/24/2018 with complaints of shortness of breath. The patient was found to be in respiratory distress. She was felt to have likely a healthcare associated pneumonia as well as probably CHF exacerbation. The patient did require management in the ICU for acute hypoxic respiratory failure secondary to pneumonia and diastolic CHF, as well as severe hyponatremia. The patient has been pancytopenic throughout her hospitalization. Her counts had been fairly stable; however, on 08/27/2018 she was transfused one unit of packed red blood cells for a hemoglobin of 6.8. Her hemoglobin since then has been fairly stable. In terms of her sodium level, she presented at 112. She was initially treated with hypertonic saline, though was then felt to have hypervolemic hyponatremia and was subsequently treated with IV Lasix. With diuresis, the patient's sodium level improved. On the day of discharge, her sodium level is normal. In terms of the healthcare associated pneumonia, the patient was treated with multiple antibiotics, but most recently has completed a course of treatment with Augmentin and Doxycycline. The patient states at this point her breathing is essentially back to normal. She was never febrile, so the diagnosis of healthcare associated pneumonia is not completely clear. The patient met with Dr. Fernandez from [facility] on 09/02/2018 to discuss her prognosis and options. The patient at this point has decided that she wished to be signed on to hospice. The hospice residence has a bed for the patient, but they are not able to take her until 09/07/2018 and therefore the patient is being discharged back to [facility] today, 09/04/2018, to then subsequently be transferred to the [facility] residence on 09/07/2018. The patient understands that she will no longer receive blood transfusions. She is accepting of this. Sublingual Morphine and Ativan have been ordered for her. FOLLOW-UP CONCERNS: The patient is being discharged to [facility] for comfort measures only today, 09/04/2018. The plan is for transfer to the [facility] residence on 09/07/2018. If the patient were to begin to decompensate prior to her transfer to the [facility], the goal would be to manage the patient's symptoms at [facility] without transferring back to the hospital. ACTIVITY: As tolerated. DIET: Regular as tolerated. CONDITION ON DISCHARGE: Guarded. TIME SPENT: Thirty-five minutes were spent discharging this patient. [id number]/[facility] #: [id number] [place]
[2018-09-04 16:49] VITALS: BP 126/45
== END 2018-09-04 16:40 | DRG 291 ==
LOC: ED 22:00 → ICU 08-25 00:43 → MED 08-27 11:45
PROVIDERS: ADMIT Pediatrics; ATTEND Hospitalist
PROC: 30233N1 Transfusion of Nonautologous Red Blood Cells into Peripheral Vein, Percutaneous Approach (ICD-10-PCS; principal; 2018-08-24)
PROC: 5A09357 Assistance with Respiratory Ventilation, Less than 24 Consecutive Hours, Continuous Positive Airway Pressure (ICD-10-PCS; 2018-08-24)
DX: I50.33 Acute on chronic diastolic (congestive) heart failure (principal); J18.9 Pneumonia, unspecified organism; J96.01 Acute respiratory failure with hypoxia; C91.10 Chronic lymphocytic leukemia of B-cell type not having achieved remission; E87.1 Hypo-osmolality and hyponatremia; D61.818 Other pancytopenia; K21.9 Gastro-esophageal reflux disease without esophagitis; S31.809A Unspecified open wound of unspecified buttock, initial encounter; X58.XXXA Exposure to other specified factors, initial encounter; Y92.239 Unspecified place in hospital as the place of occurrence of the external cause; Z51.5 Encounter for palliative care; H35.30 Unspecified macular degeneration; G83.89 Other specified paralytic syndromes; M81.0 Age-related osteoporosis without current pathological fracture; E03.9 Hypothyroidism, unspecified; E78.5 Hyperlipidemia, unspecified; R00.0 Tachycardia, unspecified; I08.1 Rheumatic disorders of both mitral and tricuspid valves; E87.70 Fluid overload, unspecified; H61.23 Impacted cerumen, bilateral; Z86.69 Personal history of other diseases of the nervous system and sense organs; Z92.3 Personal history of irradiation; Z66 Do not resuscitate; Z92.21 Personal history of antineoplastic chemotherapy; Z87.01 Personal history of pneumonia (recurrent); Z86.12 Personal history of poliomyelitis
CPT/HCPCS: 36415; 71045; 71250; 80048; 80053; 80202; 82803; 83605; 83735; 83880; 83930; 84100; 84134; 84300; 84443; 84484; 85025; 85027; 85610; 85730; 86140; 86850; 86900; 86901; 86922; 87040; 87205; 87641; 87899; 93005; 93306; 94640; 99285; A9270-GY; G8978-GP-CM; G8979-GP-CK; J1644; J1940; J2543; J2920; J2930; J3370; J3475; J7512; P9040